=== PATIENT | female | born 1940 | race Hispanic/Latino ===

== ENCOUNTER 2017-08-27 17:23 | Emergency (ER) | payer MEDICARE, BC ==
[2017-08-27 17:23] VITALS: BMI 15.3
[2017-08-27 17:44] VITALS: O2SAT 99
--- NOTE | 2017-08-27 18:39 | ED PDOC ---
Arrival/HPI - General Chief Complaint: Back Pain Time Seen by Provider: 08/27/17 18:39 Historian: Patient - History of Present Illness Narrative History of Present Illness (Text): 08/27/17 18:41 A 77 year old female, whose past medical history includes hypertension, COPD, fractures, GERD, constipation, depression, tonsillectomy, and appendectomy, presents to the emergency department complaining of lower back pain for past few weeks. Patient reports she was exercising few weeks ago and felt sudden pain in the lumbar region bilaterally. She mentions also experiencing fatigue and chills, not associated with pain. Patient denies any other complaints at this time. PMD: Dr. Borden Past Medical History - Provider Review Nursing Documentation Reviewed: Yes - Infectious Disease Hx of Infectious Diseases: None - Tetanus Immunization Tetanus Immunization: Unknown - Cardiac Hx Cardiac Disorders: Yes Hx Hypertension: Yes - Pulmonary Hx Respiratory Disorders: Yes Hx Chronic Obstructive Pulmonary Disease (COPD): Yes - Neurological Hx Neurological Disorder: Yes - HEENT Hx HEENT Disorder: Yes - Renal Hx Renal Disorder: No - Endocrine/Metabolic Hx Endocrine Disorders: No - Hematological/Oncological Hx Blood Transfusions: No - Integumentary Other/Comment: underneath left eye skin CA, with sx - Musculoskeletal/Rheumatological Hx Fractures: Yes (Back) - Gastrointestinal Hx Gastrointestinal Disorders: Yes Hx Constipation: Yes Hx Gastroesophageal Reflux: Yes - Genitourinary/Gynecological Hx Genitourinary Disorders: No - Psychiatric Hx Psychophysiologic Disorder: Yes Hx Depression: Yes Hx Emotional Abuse: No Hx Physical Abuse: No Hx Substance Use: No - Surgical History Hx Appendectomy: Yes Hx Tonsillectomy: Yes - Anesthesia Hx Anesthesia: Yes - Suicidal Assessment Feels Threatened In Home Enviroment: No Family/Social History - Physician Review Nursing Documentation Reviewed: Yes Family/Social History: No Known Family HX Smoking Status: Never Smoked Hx Alcohol Use: No Hx Substance Use: No Hx Substance Use Treatment: No Allergies/Home Meds Allergies/Adverse Reactions: Allergies cefuroxime axetil [From Ceftin] Allergy (Verified 08/27/17 17:44) DIARRHEA gluten Allergy (Verified 08/27/17 17:44) ANAPHYLAXIS Review of Systems - Physician Review All systems were reviewed & negative as marked: Yes - Review of Systems Constitutional: Fatigue, Other (chills, "shaky sensation" non-associated with pain) Musculoskeletal: Back Pain (lower back pain bilaterally) Physical Exam Vital Signs Reviewed: Yes Vital Signs Temp Pulse Resp BP Pulse Ox 08/27/17 19:35 98.1 F 70 17 142/87 99 08/27/17 17:42 97.4 F L 72 18 145/91 H 99 Temperature: Afebrile Blood Pressure: Normal Pulse: Regular Respiratory Rate: Normal Appearance: Positive for: Well-Appearing, Non-Toxic, Comfortable Pain Distress: None Mental Status: Positive for: Alert and Oriented X 3 - Systems Exam Head: Present: Atraumatic, Normocephalic Neck: Present: Normal Range of Motion Respiratory/Chest: Present: Clear to Auscultation, Good Air Exchange. No: Respiratory Distress, Accessory Muscle Use Cardiovascular: Present: Regular Rate and Rhythm, Normal S1, S2. No: Murmurs Abdomen: No: Tenderness, Distention, Peritoneal Signs Upper Extremity: Present: Normal Inspection. No: Cyanosis, Edema Lower Extremity: Present: Normal Inspection, Other (negative straight leg test bilaterally). No: Edema Neurological: Present: GCS=15, CN II-XII Intact, Speech Normal Skin: Present: Warm, Dry, Normal Color. No: Rashes Psychiatric: Present: Alert, Oriented x 3, Normal Insight, Normal Concentration Medical Decision Making ED Course and Treatment: 08/27/17 18:49 Impression: 77 year old female with lower back pain bilaterally. Plan: -- Valium -- Toradol -- Urinalysis -- Labs -- Reassess and disposition Progress Notes: - Lab Interpretations Lab Results: 08/27/17 19:05 08/27/17 19:05 Lab Results 08/27/17 19:05: Sodium 133, Potassium 4.0, Chloride 96 L, Carbon Dioxide 26, Anion Gap 14, BUN 18, Creatinine 0.6 L, Est GFR ( Amer) > 60, Est GFR ( Non-Af Amer) > 60, Random Glucose 96, Calcium 9.2, Total Bilirubin 0.4, AST 33, ALT 32, Alkaline Phosphatase 106, Total Protein 7.1, Albumin 4.2, Globulin 2.9, Albumin/Globulin Ratio 1.5 08/27/17 19:05: Urine Color Yellow, Urine Appearance Clear, Urine pH 7.0, Ur Specific [place] 1.010, Urine Protein Negative, Urine Glucose (UA) Negative, Urine Ketones Negative, Urine Blood Trace-intact H, Urine Nitrate Negative, Urine Bilirubin Negative, Urine Urobilinogen 0.2, Ur Leukocyte Esterase Small H , Urine RBC 2 - 5, Urine WBC 5 - 10, Ur Epithelial Cells 3 - 4, Urine Bacteria Mod 08/27/17 19:05: WBC 4.6 D, RBC 4.65, Hgb 14.0, Hct 40.7, MCV 87.5, MCH 30.1, MCHC 34.4, RDW 14.6 H, Plt Count 215, MPV 10.5, Gran % 51.7, Lymph % (Auto) 35.7 H, [place] % (Auto) 10.2 H, Eos % (Auto) 1.7, Baso % (Auto) 0.7, Gran # 2.38, Lymph # (Auto) 1.6, [place] # (Auto) 0.5, Eos # (Auto) 0.1, Baso # (Auto) 0.03 - RAD Interpretation Radiology Orders: 08/27/17 19:38 LS SPINE WITH OBL > 18 YRS OLD [RAD] Stat - Medication Orders Current Medication Orders: Ciprofloxacin (Cipro 400mg/200ml Dsw) 400 mg in 200 mls @ 133.3 mls/hr IVPB Q12 LIO PRN Reason: Protocol Stop: 08/27/17 23:31 Discontinued Medications Diazepam (Valium) 5 mg PO ONCE ONE PRN Reason: Protocol Stop: 08/27/17 18:42 Last Admin: 08/27/17 19:34 Dose: Ketorolac Tromethamine (Toradol) 15 mg IVP STAT STA Stop: 08/27/17 18:42 Last Admin: 08/27/17 19:34 Dose: - Scribe Statement The provider has reviewed the documentation as recorded by the Rigo Michael Provider Scribe Attestation: All medical record entries made by the Rumaibearnestine were at my direction and personally dictated by me. I have reviewed the chart and agree that the record accurately reflects my personal performance of the history, physical exam, medical decision making, and the department course for this patient. I have also personally directed, reviewed, and agree with the discharge instructions and disposition. Disposition/Present on Arrival - Present on Arrival Any Indicators Present on Arrival: No History of DVT/PE: No History of Uncontrolled Diabetes: No Urinary Catheter: No History of Decub. Ulcer: No History Surgical Site Infection Following: None - Disposition Have Diagnosis and Disposition been Completed?: Yes Diagnosis: UTI (urinary tract infection), Lumbar sprain Disposition: HOME/ ROUTINE Disposition Time: 20:45 Patient Plan: Discharge Condition: GOOD Discharge Instructions (ExitCare): Urinary Tract Infections in Adults, Lumbar Muscle Strain (DC) Prescriptions: Ciprofloxacin HCl [Cipro] 250 mg PO Q12 3 Days #6 tablet Cyclobenzaprine [Cyclobenzaprine HCl] 10 mg PO QPM 10 Days #10 tab Ibuprofen [Motrin] 600 mg PO Q6 5 Days #20 tab Referrals: Rachna Borden DO [Primary Care Provider] - Follow up with primary Forms: [employer] ([place])
[2017-08-27 19:32] LABS: ALB/GLOB RATIO 1.5 (1.1-1.8); ALBUMIN 4.2 g/dL (3.0-4.8); ALT/SGPT 32 U/L (7-56); AST/SGOT 33 U/L (14-36); BLOOD UREA NITROGEN 18 mg/dL (7-21); CALCIUM 9.2 mg/dL (8.4-10.5); GFR AFRICAN-AMERICAN > 60; GFR NON-AFRICAN AMERICAN > 60
[2017-08-27 19:35] VITALS: BP 142/87; PULSE 70; RESP 17; TEMP 98.1
[2017-08-27 19:35] LABS: BASO # 0.03 K/mm3 (0.0-2.0); BASO % 0.7 % (0.0-3.0); EOS # 0.1 (0.0-0.7); EOS % 1.7 % (1.5-5.0); GRAN # 2.38 (1.4-6.5); GRAN % 51.7 % (50.0-68.0); LYMPH # 1.6 (1.2-3.4); LYMPH % 35.7 % (22.0-35.0); MEAN CELL VOLUME 87.5 fl (80.0-105.0); MEAN CORPUSCULAR HEMOGLOBIN 30.1 pg (25.0-35.0); MEAN CORPUSCULAR HGB CONC 34.4 g/dl (31.0-37.0); MEAN PLATELET VOLUME 10.5 fl (7.0-11.0); MONO # 0.5 (0.1-0.6); MONO % 10.2 % (1.0-6.0); RBC 4.65 10^6/uL (3.5-6.1); RED CELL DISTRIBUTION WIDTH 14.6 % (11.5-14.5); URINE BILIRUBIN NEGATIVE (NEGATIVE); URINE BLOOD TRACE-INTACT (NEGATIVE); URINE GLUCOSE (UA) NEGATIVE (NEGATIVE); URINE LEUKOCYTE ESTERASE SMALL Leu/uL (NEGATIVE); URINE PROTEIN NEGATIVE mg/dL (<30 mg/dL); URINE UROBILINOGEN 0.2 E.U./dL (<1 E.U./dL); WHITE BLOOD COUNT 4.6 10^3/ul (4.5-11.0)
[2017-08-27 19:36] LABS: URINE APPEARANCE CLEAR (CLEAR); URINE COLOR YELLOW (YELLOW)
[2017-08-27] MEDS ORDERED: Dextrose 50% SYRINGE Inj (50 ml) IVP STA (19:41)
[2017-08-27 19:43] LABS: URINE BACTERIA MOD (NEG)
[2017-08-27] MEDS ORDERED: Ciprofloxacin 400mg/200ml D5W 400 MG/200 ML BAG IVPB SCH (22:00)
--- NOTE | 2017-08-28 13:41 | RAD ---
Date of service: 08/27/2017 PROCEDURE: Radiographs of the Lumbar Spine. HISTORY: Back pain COMPARISON: No prior. FINDINGS: BONES: There is moderate levoscoliosis in the lumbar spine. There is diffuse bone demineralization. There are age indeterminate multilevel osteoporotic compression deformities in the lumbar spine, worse at L1 and L2 with approximately 50 percent loss of vertebral height. DISC SPACES: Multilevel degenerative disc disease, worse at L5-S1 OTHER FINDINGS: None. IMPRESSION: Age indeterminate multilevel osteoporotic compression deformities in the lumbar spine, worse at L1 and L2. Multilevel degenerative disc disease, worse at L5-S1. Moderate levoscoliosis in the lumbar spine. A preliminary report was provided by [employer] [facility].
== END 2017-08-27 21:12 | disposition home or self-care (01) ==
LOC: ED 17:23
DX: N39.0 Urinary tract infection, site not specified (principal); S33.5XXA Sprain of ligaments of lumbar spine, initial encounter; X58.XXXA Exposure to other specified factors, initial encounter; I10 Essential (primary) hypertension; J44.9 Chronic obstructive pulmonary disease, unspecified

== ENCOUNTER 2017-10-03 17:30 | Inpatient (IN) | payer MEDICARE, BC ==
[2017-10-03 17:40] VITALS: BMI 16.6
--- NOTE | 2017-10-03 17:43 | ED PDOC ---
Arrival/HPI - General Time Seen by Provider: 10/03/17 17:32 Historian: Patient, Family, EMS - History of Present Illness Narrative History of Present Illness (Text): 10/03/17 17:41 77 year old female, with past medical history of depression, osteoarthritis, hypertension, GERD, and COPD, presents to the Emergency department via EMS accompanied by son for evaluation of AMS prior to arrival. Son states patient was not making any sense when he called her house at 2pm today and reached out to the local fire department for evaluation. EMS was paged. Upon EMS arrival, patient appeared very confused and anxious prompting them to present to the Emergency department. As per son, patient may have been non-compliant with diet and is very dehydrated leading to the presented symptoms. Patient is currently able to recognize herself and her son and the place, however, is unable to recall what she ate earlier. Patient denies any fevers, chills, headache, dizziness, chest pain, shortness of breath, dyspnea on exertion, cough, abdominal pain, nausea, vomiting, diarrhea, back pain, neck pain, or any other complaints. Time/Duration: Prior to Arrival Symptom Onset: Gradual Symptom Course: Unchanged Activities at Onset: Light Context: Home Past Medical History - Provider Review Nursing Documentation Reviewed: Yes - Infectious Disease Hx of Infectious Diseases: None - Tetanus Immunization Tetanus Immunization: Unknown - Cardiac Hx Cardiac Disorders: Yes Hx Hypertension: Yes - Pulmonary Hx Respiratory Disorders: Yes Hx Chronic Obstructive Pulmonary Disease (COPD): Yes - Neurological Hx Neurological Disorder: Yes - HEENT Hx HEENT Disorder: Yes - Renal Hx Renal Disorder: No - Endocrine/Metabolic Hx Endocrine Disorders: No - Hematological/Oncological Hx Blood Transfusions: No - Integumentary Other/Comment: underneath left eye skin CA, with sx - Musculoskeletal/Rheumatological Hx Fractures: Yes (Back) - Gastrointestinal Hx Gastrointestinal Disorders: Yes Hx Constipation: Yes Hx Gastroesophageal Reflux: Yes - Genitourinary/Gynecological Hx Genitourinary Disorders: No - Psychiatric Hx Psychophysiologic Disorder: Yes Hx Depression: Yes Hx Emotional Abuse: No Hx Physical Abuse: No Hx Substance Use: No - Surgical History Hx Appendectomy: Yes Hx Tonsillectomy: Yes - Anesthesia Hx Anesthesia: Yes - Suicidal Assessment Feels Threatened In Home Enviroment: No Family/Social History - Physician Review Nursing Documentation Reviewed: Yes Smoking Status: Never Smoked Hx Alcohol Use: No Hx Substance Use: No Hx Substance Use Treatment: No Allergies/Home Meds Allergies/Adverse Reactions: Allergies cefuroxime axetil [From Ceftin] Allergy (Verified 10/03/17 17:45) DIARRHEA gluten Allergy (Verified 10/03/17 17:45) ANAPHYLAXIS Review of Systems - Physician Review All systems were reviewed & negative as marked: Yes - Review of Systems Constitutional: absent: Fevers Respiratory: absent: SOB, Cough Cardiovascular: absent: Chest Pain, COHEN Gastrointestinal: absent: Abdominal Pain, Diarrhea, Nausea, Vomiting Musculoskeletal: absent: Back Pain, Neck Pain Neurological: absent: Headache, Dizziness Physical Exam Vital Signs Reviewed: Yes Vital Signs Pulse Resp BP Pulse Ox 10/03/17 20:08 71 18 139/82 98 10/03/17 18:22 90 18 164/91 H 96 Temperature: Afebrile Blood Pressure: Normal Pulse: Regular Respiratory Rate: Normal Appearance: Positive for: Comfortable, Other (Anxious associated with tremors) Pain Distress: None Mental Status: Positive for: Confused (Alert to person and place however is unable to recall what she ate earlier) - Systems Exam Head: Present: Atraumatic, Normocephalic Pupils: Present: PERRL Extroacular Muscles: Present: EOMI Conjunctiva: Present: Normal Mouth: Present: Moist Mucous Membranes Neck: Present: Normal Range of Motion Respiratory/Chest: Present: Clear to Auscultation, Good Air Exchange. No: Respiratory Distress, Accessory Muscle Use Cardiovascular: Present: Regular Rate and Rhythm, Normal S1, S2. No: Murmurs Abdomen: No: Tenderness, Distention, Peritoneal Signs Back: Present: Normal Inspection Upper Extremity: Present: Normal Inspection. No: Cyanosis, Edema Lower Extremity: Present: Normal Inspection. No: Edema Neurological: Present: GCS=15, CN II-XII Intact, Speech Normal Skin: Present: Warm, Dry, Normal Color. No: Rashes Psychiatric: Present: Alert, Normal Concentration, Anxious Medical Decision Making ED Course and Treatment: 10/03/17 17:52 Impression: 77 year old female presents to the Emergency department for evaluation of AMS. Differential Diagnosis included but are not limited to: AMS Plan: -- VBG -- CT of head -- Labs -- EKG -- Chest X-ray -- Ativan -- IV Fluids -- Blood culture -- Urine culture -- Urinalysis -- Reassess and disposition Prior Visits: Notes and results from previous visits were reviewed. Progress Notes: 10/03/17 18:04 EKG: Ordered, reviewed, and independently interpreted the EKG. Rate : 84 BPM Rhythm : NSR Interpretation : No ST-segment elevations or depressions, no T-wave inversions, normal intervals. 10/03/17 20:22 Patient's diagnostic imaging and lab results were thoroughly reviewed with no significant findings for the AMS. Discussed case with Dr. Flores, who is aware and agrees with Emergency department plan, agrees admission under her service. Requests possible psychiatry and neurology on consult. Possible MRI to be performed tomorrow morning. - Lab Interpretations Lab Results: 10/03/17 18:00 10/03/17 18:00 Lab Results 10/03/17 19:54: Urine Color Light yellow, Urine Appearance Clear, Urine pH 7.0, Ur Specific [place] 1.010, Urine Protein Negative, Urine Glucose (UA) Negative, Urine Ketones Negative, Urine Blood Negative, Urine Nitrate Negative, Urine Bilirubin Negative, Urine Urobilinogen 0.2, Ur Leukocyte Esterase Negative 10/03/17 18:00: Alcohol, Quantitative < 10 10/03/17 18:00: Ammonia 12 10/03/17 18:00: Sodium 131 L, Chloride 95 L, Potassium 4.6, Carbon Dioxide 24, Anion Gap 16, BUN 12, Creatinine 0.7, Est GFR ( Amer) > 60, Est GFR (Non- Af Amer) > 60, Random Glucose 104, Calcium 9.9, Phosphorus 2.9, Magnesium 2.6 H , Total Bilirubin 0.4, AST 33, ALT 33, Alkaline Phosphatase 134 H D, Lactate Dehydrogenase 412, Total Creatine Kinase 70, Troponin I < 0.01, Total Protein 7.2, Albumin 4.4, Globulin 2.8, Albumin/Globulin Ratio 1.6 10/03/17 18:00: pO2 28 L, VBG pH 7.45 H, VBG pCO2 38.0 L, VBG HCO3 26.4, VBG Total CO2 27.6, VBG O2 Sat (Calc) 63.3, VBG Base Excess 2.4 H, VBG Potassium 4.6 , Sodium 129.0 L, Chloride 96.0 L, Glucose 109 H, Lactate 1.6, FiO2 21.0, Venous Blood Potassium 4.6 10/03/17 18:00: PT 11.7, INR 1.03 10/03/17 18:00: WBC 4.7, RBC 4.50, Hgb 13.7, Hct 39.3, MCV 87.3, MCH 30.4, MCHC 34.9, RDW 14.3, Plt Count 241, MPV 10.0, Gran % 56.3, Lymph % (Auto) 32.0, [place] % (Auto) 9.6 H, Eos % (Auto) 1.7, Baso % (Auto) 0.4, Gran # 2.64, Lymph # (Auto ) 1.5, [place] # (Auto) 0.5, Eos # (Auto) 0.1, Baso # (Auto) 0.02 - RAD Interpretation Radiology Orders: 10/03/17 17:44 HEAD W/O CONTRAST [CT] Stat CHEST ONE VIEW [RAD] Stat - EKG Interpretation Interpreted by ED Physician: Yes Type: 12 lead EKG - Medication Orders Current Medication Orders: Sodium Chloride (Sodium Chloride 0.9%) 1,000 mls @ 100 mls/hr IV .Q10H LIO Last Admin: 10/03/17 18:20 Dose: 100 mls/hr eMAR Start Stop Document 10/03/17 18:20 LM (Rec: 10/03/17 18:20 [id number] Intravenous Solution Start Date 10/03/17 Start Time 18:20 Discontinued Medications Lorazepam (Ativan) 2 mg IVP ONCE ONE PRN Reason: Protocol Stop: 10/03/17 17:45 Last Admin: 10/03/17 18:20 Dose: 2 mg IVP Administration Document 10/03/17 18:20 LM (Rec: 10/03/17 18:20 [id number] Charges for Administration # of IVP Administrations 1 - Scribe Statement The provider has reviewed the documentation as recorded by the Scribearnestine Blanchard. All medical record entries made by the Scribe were at my direction and personally dictated by me. I have reviewed the chart and agree that the record accurately reflects my personal performance of the history, physical exam, medical decision making, and the department course for this patient. I have also personally directed, reviewed, and agree with the discharge instructions and disposition. Disposition/Present on Arrival - Present on Arrival History of DVT/PE: No History of Uncontrolled Diabetes: No Urinary Catheter: No History Surgical Site Infection Following: None - Disposition Referrals: Rachna Borden DO [Primary Care Provider] - Follow up with primary
[2017-10-03] MEDS ORDERED: Sodium Chloride 0.9% 1,000 ML IV SCH (17:45)
[2017-10-03 18:31] LABS: BASO # 0.02 K/mm3 (0.0-2.0); BASO % 0.4 % (0.0-3.0); EOS # 0.1 (0.0-0.7); EOS % 1.7 % (1.5-5.0); GRAN # 2.64 (1.4-6.5); GRAN % 56.3 % (50.0-68.0); HEMOGLOBIN 13.7 g/dL (12.0-16.0); LYMPH # 1.5 (1.2-3.4); MEAN CELL VOLUME 87.3 fl (80.0-105.0); MEAN CORPUSCULAR HEMOGLOBIN 30.4 pg (25.0-35.0); MEAN CORPUSCULAR HGB CONC 34.9 g/dl (31.0-37.0); MONO # 0.5 (0.1-0.6); MONO % 9.6 % (1.0-6.0); RBC 4.5 10^6/uL (3.5-6.1); RED CELL DISTRIBUTION WIDTH 14.3 % (11.5-14.5); WHITE BLOOD COUNT 4.7 10^3/ul (4.5-11.0)
[2017-10-03 18:36] LABS: INR 1.03; PROTHROMBIN TIME 11.7 SECONDS (9.4-12.5)
[2017-10-03 18:46] LABS: VENOUS BLOOD GAS BASE EXCESS 2.4 mmol/L (0.0-2.0); VENOUS BLOOD GAS PO2 28 mm/Hg (30-55); VENOUS BLOOD PH 7.45 (7.32-7.43)
[2017-10-03 18:51] LABS: ALB/GLOB RATIO 1.6 (1.1-1.8); ALBUMIN 4.4 g/dL (3.0-4.8); ALT/SGPT 33 U/L (7-56); AST/SGOT 33 U/L (14-36); BLOOD UREA NITROGEN 12 mg/dL (7-21); CALCIUM 9.9 mg/dL (8.4-10.5); GFR NON-AFRICAN AMERICAN > 60
[2017-10-03 19:02] LABS: TROPONIN I < 0.01 ng/mL
[2017-10-03 20:12] LABS: URINE BILIRUBIN NEGATIVE (NEGATIVE); URINE BLOOD NEGATIVE (NEGATIVE); URINE GLUCOSE (UA) NEGATIVE (NEGATIVE); URINE LEUKOCYTE ESTERASE NEGATIVE Leu/uL (NEGATIVE); URINE PROTEIN NEGATIVE mg/dL (<30 mg/dL); URINE UROBILINOGEN 0.2 E.U./dL (<1 E.U./dL)
[2017-10-03 20:13] LABS: URINE APPEARANCE CLEAR (CLEAR); URINE COLOR LIGHT YELLOW (YELLOW)
[2017-10-03] MEDS ORDERED: Albuterol-Ipratrop 3 mg / 0.5 (3 ml) UD IH PRN (21:40)
[2017-10-03 22:31] LABS: HDL CHOLESTEROL 56 mg/dL (29-60)
[2017-10-03 22:41] LABS: LDL CHOLESTEROL 98 mg/dL (0-129)
[2017-10-04] MEDS: Pantoprazole 40 mg EC Tab PO SCH (05:35)
[2017-10-04] MEDS: Albuterol-Ipratrop 3 mg / 0.5 (3 ml) UD IH SCH ×3 (07:26→20:05)
--- NOTE | 2017-10-04 07:26 | CT ---
Date of service: 10/03/2017 PROCEDURE: CT HEAD WITHOUT CONTRAST. HISTORY: CONFUSION COMPARISON: None available. TECHNIQUE: Axial computed tomography images were obtained through the head/brain without intravenous contrast. Radiation dose: Total exam DLP = mGy-cm. This CT exam was performed using one or more of the following dose reduction techniques: Automated exposure control, adjustment of the mA and/or kV according to patient size, and/or use of iterative reconstruction technique. FINDINGS: HEMORRHAGE: No intracranial hemorrhage. BRAIN: No mass effect or edema. Chronic microvascular ischemic changes. VENTRICLES: Unremarkable. No hydrocephalus. CALVARIUM: Unremarkable. PARANASAL SINUSES: Unremarkable as visualized. No significant inflammatory changes. MASTOID AIR CELLS: Unremarkable as visualized. No inflammatory changes. OTHER FINDINGS: None. IMPRESSION: No bleed..
[2017-10-04 08:05] LABS: ALB/GLOB RATIO 1.4 (1.1-1.8); ALBUMIN 3.5 g/dL (3.0-4.8); ALT/SGPT 28 U/L (7-56); AST/SGOT 27 U/L (14-36); BLOOD UREA NITROGEN 8 mg/dL (7-21); CALCIUM 8.9 mg/dL (8.4-10.5); GFR NON-AFRICAN AMERICAN > 60
[2017-10-04 08:20] LABS: FREE T4 1.11 ng/dL (0.78-2.19)
--- NOTE | 2017-10-04 09:16 | HP ---
Copied To: Froy Flores MD Attending MD: Froy Flores MD HISTORY OF PRESENT ILLNESS: The patient is 77-year-old, who was brought to Emergency Room for change in mental status. According to son, when he called mom around 2:00, she seemed confused and disoriented, did not make sense while she was talking department because he lives out of town, who called EMS and she was found to be confused, anxious. So, she was brought to emergency room for further evaluation. The patient lives by herself. She was admitted 02/2016 because of generalized weakness and was found to be dehydrated. PAST MEDICAL HISTORY: Otherwise is significant for, 1. Hypertension. 2. Generalized osteoarthritis. 3. Gastroesophageal reflux disease. 4. COPD. 5. History of left shoulder basal cell carcinoma; for that, she got radiation. ALLERGIES: SHE IS ALLERGIC TO CEFUROXIME AND GLUTEN. MEDICATIONS AT HOME: She is on ibuprofen and Cipro. SOCIAL HISTORY: Denies smoking. She used to smoke heavy, but quit 15 years ago. Used to smoke almost a pack a day. Socially drinks. PHYSICAL EXAMINATION: GENERAL: She seems to be more alert now, able to recognize herself and her son. VITAL SIGNS: She has temperature of 99.5, pulse 90, respirations 18, blood pressure 164/91. LUNGS: Bilateral fair airflow. No rhonchi or crackle. HEART: S1 and S2 audible. ABDOMEN: Soft, nontender. No rebound. No guarding. NEUROLOGICAL: The patient is awake and alert, but confused and disoriented. EXTREMITIES: Bilateral legs, no edema. LABORATORY DATA: WBC is 4.7, hemoglobin 13.7, hematocrit 39.3, platelet 241. PT 11.7, INR 1.03. Sodium 131, potassium 4.6, chloride 95, CO2 of 24, BUN 12, creatinine 0.7, blood sugar of 104, magnesium 2.6, alk phos 134, ammonia level is 12. LFTs are within normal limit. Urinalysis is unremarkable. CT scan of the head done, unremarkable. ASSESSMENT: 1. Status post altered mental status. 2. History of hypertension, but currently normotensive. 3. History of left shoulder basal cell carcinoma. 4. Chronic obstructive pulmonary disease. 5. Chronic low back pain. PLAN: The patient will be admitted. We will give her IV fluids. Follow up cultures. I will order for carotid Doppler. Follow up her electrolytes and we will reevaluate in the a.m. Froy Flores MD
--- NOTE | 2017-10-04 10:13 | RAD ---
Date of service: 10/03/2017 PROCEDURE: CHEST RADIOGRAPH, 1 VIEW HISTORY: ALTERED MENTAL STATUS COMPARISON: 05/11/2016 FINDINGS: LUNGS: Clear. PLEURA: No pneumothorax or pleural fluid seen. CARDIOVASCULAR: Normal. OSSEOUS STRUCTURES: No significant abnormalities. VISUALIZED UPPER ABDOMEN: Normal. OTHER FINDINGS: None. IMPRESSION: No active disease.
--- NOTE | 2017-10-04 11:23 | CARD ---
APPROVED REPORT Date of service: 10/03/2017 EKG Measurement Heart [id number] <Conclusion> Normal sinus rhythm Nonspecific ST abnormality Abnormal ECG
--- NOTE | 2017-10-04 14:27 | PN ---
Copied To: Froy Flores MD Attending MD: Froy Flores MD DATE: 10/04/2017 SUBJECTIVE: The patient is 77 years old, seen and examined, lying in bed. Daughter and son by the bedside. They stated this is acute change in mental status. She is very confused and has a better remote memory than recent that all started yesterday afternoon. No acute events. No headache, no chest pain, no shortness of breath. No nausea, vomiting. No diarrhea. PHYSICAL EXAMINATION: VITAL SIGNS: She is afebrile, pulse 52, respirations 18, blood pressure 140/72. LUNGS: Bilateral fair airflow. No rhonchi or crackle. HEART: S1, S2 audible. ABDOMEN: Soft, nontender. No rebound, no guarding. NEUROLOGICAL: She is awake and alert, forgetful. No focal deficit. LABORATORY EXAM: Sodium 138, potassium 3.8, chloride 104, CO2 27, BUN 8, creatinine 0.7, blood sugar of 75. LFTs are within normal limits. Total cholesterol is 181, LDL is 98. Thyroid profile is within normal limits. Urinalysis is unremarkable. Urine tox is negative. CT scan of the head is negative. I am awaiting MRI of the brain. ASSESSMENT: 1. Altered mental status, etiology is unclear, probably worsening dementia along with transient ischemic attack. 2. Hypertension. 3. History of chronic obstructive pulmonary disease. PLAN: We will follow up MRI and carotid Doppler. If unremarkable and [facility], we will make disposition plan. Physical therapy has been requested. Froy Flores MD
--- NOTE | 2017-10-04 17:15 | US ---
PROCEDURE: Bilateral carotid artery duplex ultrasound HISTORY: Carotid stenosis syncope PHYSICIAN(S): Elan Reza MD. TECHNIQUE: Duplex sonography and color-flow Doppler were used to evaluate the carotid bifurcations and limited segments of the vertebral arteries bilaterally. FINDINGS: The exam is limited by tortuous vessels. There is mild to moderate focal heterogeneous echogenic plaque noted at the carotid bifurcations bilaterally. The peak systolic velocity in the proximal right internal carotid artery is 89 cm/sec. This corresponds to a 20 to 39% proximal right ICA stenosis. Normal systolic velocities are noted in the proximal right external carotid artery. There is antegrade flow in the right vertebral artery. The peak systolic velocity in the proximal left internal carotid artery is 76 cm/sec. This corresponds to a 20 to 39% proximal left ICA stenosis. Normal systolic velocities are noted in the proximal left external carotid artery. There is antegrade flow in the left vertebral artery. IMPRESSION: 1. Bilateral 20-39% proximal ICA stenoses. 2. Antegrade flow in both vertebral arteries.
[2017-10-05] MEDS: Albuterol-Ipratrop 3 mg / 0.5 (3 ml) UD IH SCH ×4 (01:14→20:25)
[2017-10-05] MEDS: Pantoprazole 40 mg EC Tab PO SCH (05:50)
--- NOTE | 2017-10-05 09:11 | MRI ---
Date of service: 10/04/2017 PROCEDURE: MRI BRAIN WITHOUT CONTRAST HISTORY: altered mental sttus COMPARISON: Noncontrast head CT 10/03/2017. TECHNIQUE: Multiplanar, multisequence MR images of the brain were obtained without intravenous contrast enhancement. FINDINGS: HEMORRHAGE: None DWI: Punctate acute or subacute infarcts are identified at right occipital lobe. No acute lobar brain infarction identified. There is also small acute subacute left thalamic infarct. BRAIN PARENCHYMA: Good corticomedullary differentiation is seen. Limited, proportional, diffuse expansion of the ventriculosulcal and cisternal spaces is appreciated with white matter lucency compatible with diffuse cerebral atrophy and chronic microangiopathy. No suspicious extra-axial fluid collection is identified. Midline brain anatomy is remarkable for a 9 mm pineal cyst. There is no mass effect throughout. Cerebellar ectopia is appreciated but not to a level that would applied to Chiari malformation. VENTRICLES: Unremarkable. No hydrocephalus. CRANIUM: Unremarkable. ORBITS: Grossly unremarkable. PARANASAL SINUSES/MASTOIDS: Clear VASCULAR SYSTEM: Skull base flow voids intact. OTHER FINDINGS: None. IMPRESSION: 1. Small acute or subacute infarction identified in multiple punctate right occipital foci and also in a region of the left thalamus. No significant mass effect. 2. Limited age-related neuro degenerative findings as seen in prior head CT 10/03/2017. 3. 9 mm pineal cyst. Consider follow-up brain MRI with contrast for added characterization. 4. Cerebellar ectopia identified. Concordant preliminary report from [facility], 10/04/2017.
--- NOTE | 2017-10-05 14:22 | CP.PCM.PN ---
Subjective - Date & Time of Evaluation Date of Evaluation: 10/05/17 Time of Evaluation: 01:50 - Subjective Subjective: Subjective: CC: Blurry Vision HPI: Paged by RN for evaluation of blurry vision. Patient seen and examined at bedside. Family present. Patient gave permission to talk about medical information in front of family. Patient states she was experiencing blurry vision out of both eyes after eating lunch. Denies specific provoking event. The blurry vision has since improved. Admits to using prescription glasses at home which were not available at the hospital. Denies headache, dizziness, chest pain, shortness of breath, slurred speech, and confusion. Physical Examination: Head: AT-NC Eyes: nonicteric, EOMI, Alethea ENT: Moist mucus membranes Heart: + S1, +S2 Lungs: CTA bilaterally Neuro: AAO x 2 to name and person, CNII- XII intact bilaterally, responds to verbal stimuli, answers questions appropriately, moves extremities past midline , muscle strength 5/5 throughout, sensation intact to touch throughout, no slurring of speech, no facial droop Extremities: no clubbing, no cyanosis Psych: normal mood, normal affect Skin: dry, warm Assessment and Plan: Patient is 77 year old female with a past medical history of hypertension, COPD , and basal cell carcinoma who was admitted for evaluation and treatment of altered mental status. Found to have small acute or subacute infarction in the right occipital foci and also in a region of the left thalamus on recent brain MRI. Blurry Vision - recent brain MRI reviewed- Small acute or subacute infarction identified in multiple punctuate right occipital foci and also in a region of the left thalamus. No significant mass effect. Limited age-related neuro degenerative findings as seen in prior head CT 10/03/2017. 9 mm pineal cyst - continue aspirin and statin - neurology team contacted by nursing staff who endorsed patient case- MRI findings were discussed with new onset blurry vision- neurologist informed nurse that he will evaluate patient this afternoon - primary physician contact- endorsed patient case- instructed to place patient on neurochecks q4 hours Objective - Vital Signs/Intake and Output Vital Signs (last 24 hours): Temp Pulse Resp BP Pulse Ox 97.5 F L 79 20 130/84 97 10/05/17 08:30 10/05/17 08:30 10/05/17 08:30 10/05/17 09:11 10/05/17 08:30 Intake and Output: 10/05/17 10/05/17 06:59 18:59 Intake Total 120 Balance 120 - Medications Medications: Current Medications Acetaminophen (Tylenol 325mg Tab) 650 mg PO Q6H PRN PRN Reason: Fever >100.4 F Albuterol/Ipratropium (Duoneb 3 Mg/0.5 Mg (3 Ml) Ud) 3 ml [facility]H [id number] [facility] Last Admin: 10/05/17 13:55 Dose: Not Given Albuterol/Ipratropium (Duoneb 3 Mg/0.5 Mg (3 Ml) Ud) 3 ml IH Q2H PRN PRN Reason: Shortness of Breath Amlodipine Besylate (Norvasc) 2.5 mg PO DAILY [facility] Last Admin: 10/05/17 09:11 Dose: 2.5 mg Aspirin (Ecotrin) 81 mg PO DAILY [facility] Last Admin: 10/05/17 09:11 Dose: 81 mg Atorvastatin Calcium (Lipitor) 10 mg PO DIN [facility] Lorazepam (Ativan) 1 mg IVP ONCE PRN; Protocol PRN Reason: Anxiety Last Admin: 10/04/17 18:25 Dose: 1 mg Pantoprazole Sodium (Protonix Ec Tab) 40 mg PO 0630 [facility] Last Admin: 10/05/17 05:50 Dose: 40 mg - Labs Labs: 10/04/17 07:00 PT 11.7 SECONDS (9.4-12.5) 10/03/17 18:00 INR 1.03 10/03/17 18:00
--- NOTE | 2017-10-05 15:35 | CON ---
Copied To: Blas Lay MD Attending MD: Blas Lay MD DATE: 10/05/2017 NEUROLOGY CONSULT CHIEF COMPLAINT: Altered mental status. HISTORY OF PRESENT ILLNESS: This is a 77-year-old woman with history of anxiety, depression, osteoarthritis, hypertension, GERD, COPD, who presented with altered mental status. She was not making any sense and was anxious and confused and was dehydrated and was worked up, had an MRI of the brain, which showed some small acute and subacute infarctions in the multiple punctate right occiput foci and also the region of the left thalamus with no significant mass effect with age-related changes and 9 mm pineal cyst. Her altered mental status was secondary to her acute infarcts in the right occipital and the left thalamic area. No residual deficits on exam, but is mildly anxious. She is deconditioned, has had frequent falls and has had injuries from falls in the past according to the son. PAST MEDICAL HISTORY: As above. ALLERGIES: TO CEFUROXIME AND GLUTEN. REVIEW OF SYSTEMS: Fourteen-point review of systems is negative except as per the HPI. FAMILY HISTORY: Noncontributory. MEDICATIONS: Reviewed by nurses' reconciliation sheet. LABORATORY DATA: Carotid Doppler showed 20-39% proximal ICA stenosis and antegrade flow in vertebral arteries. The sodium is 138, potassium 3.8, chloride 104, carbon dioxide 27, BUN of 8, creatinine 0.7, random glucose of 75. PHYSICAL EXAMINATION: VITAL SIGNS: Temperature 97.7, pulse rate of 79, blood pressure of 138/84, respiratory rate of 20, oxygen saturation 97% by room air. GENERAL: The patient is sitting up in bed, in no acute distress. HEENT: Atraumatic, normocephalic. PERRLA. Extraocular muscles intact. NECK: Supple. No JVD, no adenopathy noted. LUNGS: Clear to auscultation. No adventitious sounds. HEART: S1, S2. Normal rate and rhythm. No murmurs, rubs or gallops. ABDOMEN: Soft, nontender and nondistended. Bowel sounds are present. EXTREMITIES: No clubbing. No cyanosis. Peripheral pulses 2+ felt bilaterally. NEUROLOGIC: The patient is alert and oriented to person, place, month and year. Speech is fluent without any errors. Poor attention span, slow thought process. Recall after 5 minutes is 0/3. Mildly anxious. Cranial nerves II through XII intact. Motor exam: Slightly deconditioned. Moves all extremities equally. No pronator drift seen. Sensory exam: Light touch, pinprick, proprioception and vibration are intact. DTRs are 2+ throughout, 1 at both knees and ankles. Coordination: [id number] intact. No dysmetria noted except for some mild difficulties on the right [id number], which is indicated with a left thalamic infarct. Gait is deferred for now. IMPRESSION: This is a 77-year-old woman with past medical history of osteoarthritis, hypertension, dyslipidemia, anxiety, depression, gastroesophageal reflux disease and chronic obstructive pulmonary disease, who presented with altered mental status, which was likely secondary to underlying small left thalamic infarct and small right occipital infarct, which was scattered. Given her scattered infarcts on the both two cerebral hemispheres, it could be embolic in nature, therefore recommend, 1. A loop recorder. 2. Given her HAS-BLED score is high and risk of falls and has had history of falls in the past, we will hold off anticoagulation and just go with the aspirin 81 and Lipitor 40 for stroke prevention. We will recommend a Cardiology evaluation and possible loop recorder to evaluate for any arrhythmias and physical therapy, occupational therapy and subacute rehabilitation at this time. Thank you for this consult. Blas Lay MD
--- NOTE | 2017-10-06 00:40 | PN ---
Copied To: Froy Flores MD Attending MD: Froy Flores MD DATE: 10/05/2017 SUBJECTIVE: The patient is 77 years old, seen and examined, seemed to be awake, alert, oriented, able to communicate. Generalized weakness. Had some difficulty walking and has unstable gait. PHYSICAL EXAMINATION: VITAL SIGNS: She is afebrile, pulse 74, respirations 20, blood pressure 127/80. LUNGS: Bilateral fair airflow. No rhonchi or crackle. HEART: S1, S2 audible. ABDOMEN: Soft, nontender. No rebound. No guarding. NEUROLOGICAL: She is awake, alert, oriented, communicative. Moves all extremities. Had episode of slight blurriness but resolved. DIAGNOSTIC DATA: CT scan was unremarkable. However, MRI showed small acute versus subacute infarction in the multiple punctate right occipital foci and also in the region of left thalamus and no mass effect. ASSESSMENT: 1. Acute thalamic and occipital cerebrovascular accident. 2. Unstable gait. 3. Hypertension 4. History of gastritis. PLAN: I will request Dr. Padron to evaluate patient to rule out arrhythmia since stroke seems to be embolic. Patient goes into paroxysmal AFib although she is at high risk for any anticoagulation. I will order for echocardiogram and discuss with the family who is by the bedside and the criminal justice social worker to make arrangement for acute rehab after the workup is done. Encourage physical therapy if patient is declined from acute rehab she will be considered to send to. Froy Flores MD
[2017-10-06] MEDS: Albuterol-Ipratrop 3 mg / 0.5 (3 ml) UD IH SCH ×4 (02:10→20:19)
[2017-10-06] MEDS: Pantoprazole 40 mg EC Tab PO SCH (05:51)
[2017-10-06 09:04] VITALS: RESP 20
--- NOTE | 2017-10-06 20:06 | CON ---
Copied To: Renu Padron MD Attending MD: Renu Padron MD. DATE: 10/06/2017 REASON FOR CONSULTATION AND FOLLOWUP: Evaluation for loop recorder implantation because of admitted with altered mental status secondary to embolic stroke, rule out paroxysmal atrial fibrillation. BRIEF CLINICAL HISTORY: This is a 77-year-old female with past medical history significant for anxiety disorder, depression, osteoarthritis, hypertension, COPD, gastroesophageal reflux, presented with altered mental status. Patient was at home, found to be confused, dehydrated. Workup MRI of the brain showed small acute to subacute infarct in multiple area of the right occipital region. So cardiac consult was called to rule out any paroxysmal atrial fibrillation, implantation, and possible evaluation for loop recorder. PAST HISTORY: Significant for gastroesophageal reflux, hypertension, osteoarthritis, COPD, and history of left shoulder basal cell carcinoma and got radiation. ALLERGIES: CEFUROXIME AND GLUTEN. CURRENT MEDICATIONS: Patient at home before she came to the hospital was taking amlodipine 2.5 mg daily and Zantac 150 p.o. b.i.d. for gastroesophageal reflux. Recent workup as follows: Patient had admitting EKG shows normal sinus, nonspecific ST-T changes. Patient had bilateral carotid Duplex that showed 20%-39% stenosis. Patient had MRI of the brain. It shows multiple small acute to subacute multiple infarct in the right occipital lobe. REVIEW OF SYSTEMS: As per HPI. PHYSICAL EXAMINATION: VITAL SIGNS: Temperature afebrile. Heart rate 77, blood pressure 146/89. HEENT: PERRLA. Extraocular muscles intact. NECK: Supple. No carotid bruit or thyromegaly. CHEST: Clear to auscultation. HEART: S1 and S2, regular. ABDOMEN: Soft. EXTREMITIES: Clubbing and cyanosis negative. LABORATORY DATA: Blood work up as follows: WBC 4.7, hemoglobin 13.7, hematocrit 39.3, and platelet count 241. Chemistry shows sodium 130, potassium 3.8, chloride 104, CO2 of 27, anion gap 11. BUN 8, creatinine 0.7. TSH 1.55. Triglyceride 107, cholesterol 181, LDL 98, HDL 56. IMPRESSION: 1. Acute cerebrovascular accident. 2. Altered mental status secondary to cerebrovascular accident. 3. Hypertension. 4. Anxiety disorder. 5. Depression. 6. Osteoarthritis. 7. History of left shoulder basal cell carcinoma, status post radiation. 8. Rule out possible atrial fibrillation. PLAN: Patient was seen by neurologist and thought to be high risk for bleeding, has high HAS-BLED score, so not a good candidate for and has a high risk for fall also. Suggested not to anticoagulate evidence for paroxysmal atrial fibrillation, suggested for loop recorder. So at this point, recommendation is to get echo to rule out any structural heart disease and will schedule for loop recorder tomorrow. We will discuss with the family, discuss with patient. We ill follow with you. We will keep n.p.o. tomorrow except meds for loop recorder implantation at [address] Flores for providing opportunity in taking for care of patient, Abimbola Jacques. Renu Padron MD
--- NOTE | 2017-10-06 21:25 | PN ---
Copied To: Froy Flores MD Attending MD: Froy Flores MD DATE: 10/06/2017 SUBJECTIVE: The patient is 77 years old, seen and examined lying in bed, seems to be comfortable. No nausea or vomiting. No diarrhea. No blurry vision. No headache. PHYSICAL EXAMINATION: VITAL SIGNS: She is afebrile, pulse 87, respirations 20, blood pressure 141/89. LUNGS: Bilateral good airflow. No rhonchi or crackle. HEART: S1 and S2 audible. ABDOMEN: Soft. Nontender. No rebound. No guarding. NEUROLOGICAL: She is awake, alert, oriented, communicative. Moves all extremities. Has generalized weakness, unstable gait. EXTREMITIES: Bilateral legs, no edema. LABORATORY EXAM: Her MRI of the brain shows small acute or subacute infarction in the multiple punctate right occipital foci and also in the region of left thalamus. No significant mass effect. She has pineal cyst also. Echocardiogram is pending. ASSESSMENT: 1. Status post acute occipital and thalamic cerebrovascular accident. 2. Hypertension. 3. Generalized weakness and difficulty walking. PLAN: The patient will be getting loop recorder tomorrow. We will follow up echocardiogram. In the meantime, we will continue on aspirin and statins. We will follow up the patient in the a.m. Froy Flores MD
[2017-10-07] MEDS: Albuterol-Ipratrop 3 mg / 0.5 (3 ml) UD IH SCH ×4 (01:35→19:48)
[2017-10-07] MEDS: Pantoprazole 40 mg EC Tab PO SCH (05:58)
--- NOTE | 2017-10-07 07:32 | CP.PCM.PN ---
Subjective - Date & Time of Evaluation Date of Evaluation: 10/07/17 Time of Evaluation: 06:35 - Subjective Subjective: Awake,alert, no distress, daughter at bedside Reason for consultation and follow up: Cardiac evaluation for Loop recorder implantation,Admitted with altered mental status secondary to embolic stroke, rule out paroxysmal atrial fibrillation Seen and examined by me and Dr. Padron Objective - Vital Signs/Intake and Output Vital Signs (last 24 hours): Temp Pulse Resp BP Pulse Ox 97.6 F 76 20 141/89 96 10/06/17 17:56 10/07/17 06:00 10/06/17 17:56 10/06/17 17:56 10/06/17 17:56 Intake and Output: 10/07/17 10/07/17 06:59 18:59 Intake Total 1280 Balance 1280 - Medications Medications: Current Medications Acetaminophen (Tylenol 325mg Tab) 650 mg PO Q6H PRN PRN Reason: Fever >100.4 F Albuterol/Ipratropium (Duoneb 3 Mg/0.5 Mg (3 Ml) Ud) 3 ml IH [id number] ON LICENSE OF [facility] Last Admin: 10/07/17 01:35 Dose: Not Given Albuterol/Ipratropium (Duoneb 3 Mg/0.5 Mg (3 Ml) Ud) 3 ml IH Q2H PRN PRN Reason: Shortness of Breath Amlodipine Besylate (Norvasc) 2.5 mg PO DAILY ON [facility] OF [facility] Last Admin: 10/06/17 10:43 Dose: 2.5 mg Aspirin (Ecotrin) 81 mg PO DAILY ON [facility] OF [facility] Last Admin: 10/06/17 10:43 Dose: 81 mg Atorvastatin Calcium (Lipitor) 10 mg PO DIN ON [facility] OF [facility] Last Admin: 10/06/17 18:00 Dose: 10 mg Lorazepam (Ativan) 1 mg IVP ONCE PRN; Protocol PRN Reason: Anxiety Last Admin: 10/04/17 18:25 Dose: 1 mg Pantoprazole Sodium (Protonix Ec Tab) 40 mg PO 30 ON LICENSE OF [facility] Last Admin: 10/07/17 05:58 Dose: Not Given - Labs Labs: 10/04/17 07:00 PT 11.7 SECONDS (9.4-12.5) 10/03/17 18:00 INR 1.03 10/03/17 18:00 - Constitutional Appears: No Acute Distress - Head Exam Head Exam: NORMOCEPHALIC - Eye Exam Eye Exam: Normal appearance - ENT Exam ENT Exam: Mucous Membranes Moist - Respiratory Exam Respiratory Exam: Decreased Breath Sounds, Clear to Ausculation Bilateral, NORMAL BREATHING PATTERN - Cardiovascular Exam Cardiovascular Exam: REGULAR RHYTHM, +S1, +S2 Additional comments: telemetry NSR 70's - GI/Abdominal Exam GI & Abdominal Exam: Soft, Normal Bowel Sounds - Neurological Exam Neurological Exam: Alert, Awake - Psychiatric Exam Psychiatric exam: Normal Affect - Skin Skin Exam: Intact, Warm Assessment and Plan - Assessment and Plan (Free Text) Assessment: A 77 year old female who came in to the ER due to altered mental status, confused. Ct of head showed acute infarcts on the right occipital and left thalamic area.History of anxiety disorder,depression,osteoarthritis, hypertension,COPD,GERD, left shoulder basal cell carcinoma with radiation.Consult was called to insert/place Loop recorder to rule out atrial fibrillation Plan: For Loop recorder placement today at 11:30am NPO post midnight maintained Daughter at bedside, questions and concerns answered Stable heart rate and blood pressure Continue current treatment Continue current medications Will follow up Plan and treatment discussed with Dr. Padron
--- NOTE | 2017-10-07 08:28 | CARD ---
APPROVED REPORT Date of service: 10/06/2017 EXAM: Two-dimensional and M-mode echocardiogram with Doppler and color Doppler. Other Information Quality : AverageRhythm : INDICATION dizziness 2D DIMENSIONS Left Atrium (2D)3.5 (1.6-4.0cm)IVSd1.0 (0.7-1.1cm) LVDd4.0 (3.9-5.9cm)PWd1.0 (0.7-1.1cm) LVDs2.8 (2.5-4.0cm)FS (%) 30.0 % LVEF (%)57.0 (>50%) M-Mode DIMENSIONS Aortic Root2.90 (2.2-3.7cm)Aortic Cusp Exc.1.40 (1.5-2.0cm) Aortic Valve AoV Peak Zmytdvgr770.0cm/s Mitral Valve MV E Scecqbow16.7cm/sMV A Orfyjaez77.6cm/sE/A ratio0.8 TDI E/Lateral E'0.0E/Medial E'0.0 Tricuspid Valve TR Peak Bxeuayjx020dc/sRAP [id number] Peak Gr.29mmHg [id number] LEFT VENTRICLE The left ventricle is normal size. There is normal left ventricular wall thickness. The left ventricular function is normal. The left ventricular ejection fraction is within the normal range. There is normal LV segmental wall motion. RIGHT VENTRICLE The right ventricle is normal size. ATRIA The left atrium size is normal. The right atrium size is normal. The interatrial septum is intact with no evidence for an atrial septal defect. AORTIC VALVE The aortic valve is mildly calcified. There is trace to mild aortic regurgitation. MITRAL VALVE The mitral valve is normal in structure. Mitral regurgitation is mild. TRICUSPID VALVE The tricuspid valve is normal in structure. There is moderate tricuspid regurgitation. GREAT VESSELS The aortic root is normal in size. PERICARDIAL EFFUSION There is no pericardial effusion. <Conclusion> The left ventricle is normal size. There is normal left ventricular wall thickness. The left ventricular function is normal. The aortic valve is mildly calcified. Aortic sclerosis. There is trace to mild aortic regurgitation. Mitral regurgitation is mild. There is moderate tricuspid regurgitation.
--- NOTE | 2017-10-07 14:19 | CPOSTOP ---
Copied To: Renu Padron MD Attending MD: Renu Padron MD DATE: 10/07/2017 CARDIOVASCULAR LAB POST PROCEDURE NOTE DICTATING PHYSICIAN: Renu Padron MD. [employer] SUPERVISOR: Jamil Suarez set up mold technician. TYPE OF ANESTHESIA: Local anesthesia. PRE-PROCEDURE DIAGNOSIS: Cerebrovascular accident with multiple showering embolus. PROCEDURE PERFORMED: Implantation of loop recorder, [employer]. FINDINGS: Implantation of loop recorder. POST PROCEDURE CONDITION: Post procedure, the patient's condition is stable. VASCULAR ACCESS SITE: Left side of the chest underneath the skin. CLOSURE DEVICE: Dermabond. RADIATION DOSE: None. FLUORO TIME: None. Renu Padron MD
--- NOTE | 2017-10-07 16:19 | PN ---
Copied To: Froy Flores MD Attending MD: Froy Flores MD DATE: 10/07/2017 SUBJECTIVE: The patient is 77 years old, seen and examined, doing well, sitting in chair comfortable. Awaiting to go for loop recorder placement. PHYSICAL EXAMINATION: VITAL SIGNS: She is afebrile, pulse 67, respirations 20, blood pressure 140/81. LUNGS: Bilateral good airflow. No rhonchi or crackle. HEART: S1 and S2 audible. ABDOMEN: Soft. Nontender. No rebound. No guarding. NEUROLOGICAL: The patient is awake, alert, oriented, communicative. LABORATORY EXAM: No new lab available today. ASSESSMENT: 1. Status post occipital and thalamic cerebrovascular accident. 2. Hypertension. 3. Mitral regurgitation per echocardiogram. 4. Trace to mild aortic regurgitation. 5. Moderate tricuspid regurgitation. PLAN: The patient will be going for loop recorder and after that she is going to be going to subacute rehab. Froy Flores MD
[2017-10-07 17:35] VITALS: BP 142/62; PULSE 93; TEMP 97.2; O2SAT 97
--- NOTE | 2017-10-08 02:34 | CARDCATH ---
Copied To: Renu Padron MD Attending MD: Renu Padron MD PROCEDURE DATE: 10/07/2017 CARDIAC TRAINING INSTRUCTOR PROCEDURE, IMPLANTATION OF LOOP RECORDER (Lin[employer]). SCHEDULING :ELECTIVE SPANISH SPEAKING NANNY: Renu Padron MD SENIOR SOFTWARE TESTER: Aubrey Negron, oil burner technician. BRIEF CLINICAL HISTORY: A 77-year-old female with past medical history significant for hypertension, admitted with altered mental status, found to be acute CVA with multiple showering emboli, thought to be the cardiac source as well as rule out arrhythmia, so the patient is undergoing for implantation of loop recorder to rule out any arrhythmia. So, the patient was brought for implantation of loop recorder, [employer]. PROCEDURE PERFORMED: Implantation of loop recorder. DESCRIPTION OF PROCEDURE: The patient was brought to the radiographer cardiac catheterization, prepped and draped in standard sterile fashion. Left side of the chest was prepped and lidocaine was given to the fourth intercostal space 1.5 cm away from the midline. Then, [employer] Reveal injected underneath the skin and puncture site was closed with Dermabond. The patient tolerated the procedure well and returned to the floor in stable condition. Arrangement has been made for transtelephonic recording for arrhythmia. Also education was given to the family, daughter and the patient. We will follow with you. Thank you Dr. Flores for providing us the opportunity to taking care of the patient, Abimbola Jacques. Renu Padron MD cc: Froy Flores MD MTDD
== END 2017-10-07 20:45 | DRG 42 ==
LOC: ED 17:30 → ERH 20:14 → 3RSO 21:47
PROVIDERS: ADMIT Internal Medicine; ATTEND Internal Medicine
PROC: 3E0F7GC Introduction of Other Therapeutic Substance into Respiratory Tract, Via Natural or Artificial Opening (ICD-10-PCS; 2017-10-04)
PROC: 0JH632Z Insertion of Monitoring Device into Chest Subcutaneous Tissue and Fascia, Percutaneous Approach (ICD-10-PCS; principal; 2017-10-07)
DX: I63.40 Cerebral infarction due to embolism of unspecified cerebral artery (principal); E86.0 Dehydration; J44.9 Chronic obstructive pulmonary disease, unspecified; I10 Essential (primary) hypertension; R26.2 Difficulty in walking, not elsewhere classified; I49.9 Cardiac arrhythmia, unspecified; R29.702 NIHSS score 2; M15.9 Polyosteoarthritis, unspecified; I08.1 Rheumatic disorders of both mitral and tricuspid valves; E78.5 Hyperlipidemia, unspecified; R29.6 Repeated falls; F41.9 Anxiety disorder, unspecified; F32.9 Major depressive disorder, single episode, unspecified; K21.9 Gastro-esophageal reflux disease without esophagitis; Z85.828 Personal history of other malignant neoplasm of skin; Z92.3 Personal history of irradiation; Z91.81 History of falling; Z87.891 Personal history of nicotine dependence

== ENCOUNTER 2017-11-18 14:29 | Inpatient (IN) | payer MEDICARE, BC ==
[2017-11-18 14:54] VITALS: BMI 18.6
--- NOTE | 2017-11-18 15:32 | ED PDOC ---
Arrival/HPI - General Chief Complaint: Medical Clearance Time Seen by Provider: 11/18/17 15:11 Historian: Patient - History of Present Illness Narrative History of Present Illness (Text): 11/18/17 15:31 77 year old female, with past medical history of depression, osteoarthritis, hypertension, GERD, and COPD, presents to the Emergency department from [facility] for medical clearance for rectal prolapse surgery tomorrow. Patient currently denies any somatic complaints. Patient denies any fever, chills, nausea, vomiting, diarrhea, abdominal pain, chest pain, shortness of breath, cough, headache, dizziness, neck pain, back pain, or any other complaints. Symptom Onset: Gradual Symptom Course: Unchanged Activities at Onset: Light Context: Other ([facility]) Past Medical History - Provider Review Nursing Documentation Reviewed: Yes - Infectious Disease Hx of Infectious Diseases: None - Tetanus Immunization Tetanus Immunization: Unknown - Cardiac Hx Hypertension: Yes - Pulmonary Hx Chronic Obstructive Pulmonary Disease (COPD): Yes - Neurological HX Cerebrovascular Accident: Yes - HEENT Hx HEENT Disorder: Yes - Renal Hx Renal Disorder: No - Endocrine/Metabolic Hx Endocrine Disorders: No - Hematological/Oncological Hx Shingles: Yes - Integumentary Hx Psoriasis: Yes - Musculoskeletal/Rheumatological Hx Arthritis: Yes Hx Osteoarthritis: Yes - Gastrointestinal Hx Crohn's Disease: Yes Hx Gastroesophageal Reflux: Yes Other/Comment: Rectal prolapse - Genitourinary/Gynecological Hx Genitourinary Disorders: No - Psychiatric Hx Anxiety: Yes Hx Depression: Yes Hx Substance Use: No - Surgical History Hx Appendectomy: Yes Hx Tonsillectomy: Yes - Anesthesia Hx Anesthesia: Yes - Suicidal Assessment Feels Threatened In Home Enviroment: No Family/Social History - Physician Review Nursing Documentation Reviewed: Yes Family/Social History: No Known Family HX Smoking Status: Former Smoker Hx Alcohol Use: No Hx Substance Use: No Hx Substance Use Treatment: No Allergies/Home Meds Allergies/Adverse Reactions: Allergies cefuroxime axetil [From Ceftin] Allergy (Verified 10/03/17 17:45) DIARRHEA gluten Allergy (Verified 10/03/17 17:45) ANAPHYLAXIS Home Medications: Home Meds Medication Instructions Recorded Confirmed Ranitidine HCl [Zantac] 150 mg PO DAILY 10/04/17 10/04/17 amLODIPine [Norvasc] 2.5 mg PO BID 10/04/17 10/04/17 Review of Systems - Physician Review All systems were reviewed & negative as marked: Yes - Review of Systems Constitutional: absent: Fevers Respiratory: absent: SOB, Cough Cardiovascular: absent: Chest Pain Gastrointestinal: absent: Abdominal Pain, Diarrhea, Nausea, Vomiting Musculoskeletal: absent: Back Pain, Neck Pain Neurological: absent: Headache, Dizziness Physical Exam Vital Signs Reviewed: Yes Vital Signs Temp Resp BP 11/18/17 14:30 97.8 F 18 111/85 Temperature: Afebrile Blood Pressure: Normal Pulse: Regular Respiratory Rate: Normal Appearance: Positive for: Non-Toxic, Comfortable, Other (Frale appearing) Pain Distress: None Mental Status: Positive for: Alert and Oriented X 3 - Systems Exam Head: Present: Atraumatic, Normocephalic Pupils: Present: PERRL Extroacular Muscles: Present: EOMI Conjunctiva: Present: Normal Mouth: Present: Moist Mucous Membranes Neck: Present: Normal Range of Motion Respiratory/Chest: Present: Clear to Auscultation, Good Air Exchange. No: Respiratory Distress, Accessory Muscle Use Cardiovascular: Present: Regular Rate and Rhythm, Normal S1, S2. No: Murmurs Abdomen: No: Tenderness, Distention, Peritoneal Signs Genitourinary/Pelvic Exam: Present: Other (Rectal prolapse noted with no bleeding.) Back: Present: Normal Inspection Upper Extremity: Present: Normal Inspection. No: Cyanosis, Edema Lower Extremity: Present: Normal Inspection. No: Edema Neurological: Present: GCS=15, CN II-XII Intact, Speech Normal Skin: Present: Warm, Dry, Normal Color. No: Rashes Psychiatric: Present: Alert, Oriented x 3, Normal Insight, Normal Concentration Medical Decision Making ED Course and Treatment: 11/18/17 15:43 Impression: 77 year old female presents to the Emergency Department for medical clearance for rectal prolapse surgery. Plan: -- EKG -- Labs -- Chest X-ray -- Urinalysis -- Reassess and disposition Prior Visits: Notes and results from previous visits were reviewed. Progress Notes: 11/18/17 16:20 EKG: Ordered, reviewed, and independently interpreted the EKG. Rate :74 BPM Rhythm : NSR Interpretation : No ST-segment elevations or depressions, no T-wave inversions, normal intervals. 11/18/17 18:[address] Flores, who is aware and agrees with Emergency Department management plan. Accepts patient under her service and requests Dr. Padron on consult. Patient agreeable w/POC. Labs, ekg and cxr unremarkable. 11/18/17 18:[address] Lopez, who is aware and is scheduled to do surgery tomorrow. Requests to contact surgery resident to come evaluate the patient. Surgery resident notified. 11/18/17 21:59 - EKG Interpretation Interpreted by ED Physician: Yes Type: 12 lead EKG - Scribe Statement The provider has reviewed the documentation as recorded by the Scribe Tesfaye Blanchard. All medical record entries made by the Scribe were at my direction and personally dictated by me. I have reviewed the chart and agree that the record accurately reflects my personal performance of the history, physical exam, medical decision making, and the department course for this patient. I have also personally directed, reviewed, and agree with the discharge instructions and d isposition. Disposition/Present on Arrival - Present on Arrival Any Indicators Present on Arrival: No History of DVT/PE: No History of Uncontrolled Diabetes: No Urinary Catheter: No History of Decub. Ulcer: No History Surgical Site Infection Following: None - Disposition Have Diagnosis and Disposition been Completed?: Yes Diagnosis: Rectal prolapse Disposition: HOSPITALIZED Disposition Time: 18:40 Patient Plan: Admission Condition: STABLE
--- NOTE | 2017-11-18 16:22 | RAD ---
Date of service: 11/18/2017 HISTORY: pre operative COMPARISON: 10/28/2017 FINDINGS: LUNGS: No active pulmonary disease. PLEURA: No significant pleural effusion identified, no pneumothorax apparent. CARDIOVASCULAR: Normal. OSSEOUS STRUCTURES: No significant abnormalities. VISUALIZED UPPER ABDOMEN: Normal. OTHER FINDINGS: None. IMPRESSION: No active disease.
[2017-11-18 17:05] LABS: BASO # 0.03 K/mm3 (0.0-2.0); BASO % 0.6 % (0.0-3.0); EOS # 0.3 (0.0-0.7); EOS % 5.1 % (1.5-5.0); GRAN # 3.25 (1.4-6.5); GRAN % 61.8 % (50.0-68.0); HEMOGLOBIN 11.5 g/dL (12.0-16.0); LYMPH # 1.1 (1.2-3.4); LYMPH % 21.1 % (22.0-35.0); MEAN CELL VOLUME 91.1 fl (80.0-105.0); MEAN CORPUSCULAR HEMOGLOBIN 29.3 pg (25.0-35.0); MEAN CORPUSCULAR HGB CONC 32.2 g/dl (31.0-37.0); MEAN PLATELET VOLUME 10.2 fl (7.0-11.0); MONO # 0.6 (0.1-0.6); MONO % 11.4 % (1.0-6.0); RBC 3.92 10^6/uL (3.5-6.1); RED CELL DISTRIBUTION WIDTH 14.2 % (11.5-14.5); WHITE BLOOD COUNT 5.3 10^3/ul (4.5-11.0)
[2017-11-18 17:14] LABS: INR 1.06; PARTIAL THROMBOPLASTIN TIME 28.8 Seconds (25.1-36.5); PROTHROMBIN TIME 12.1 SECONDS (9.4-12.5)
[2017-11-18 17:26] LABS: ALB/GLOB RATIO 1.4 (1.1-1.8); ALBUMIN 3.7 g/dL (3.0-4.8); ALT/SGPT 75 U/L (7-56); AST/SGOT 95 U/L (14-36); BLOOD UREA NITROGEN 19 mg/dL (7-21); CALCIUM 8.9 mg/dL (8.4-10.5); GFR NON-AFRICAN AMERICAN > 60
[2017-11-18] MEDS ORDERED: Non Formulary Medication (Ranitidine Hcl [Zantac] 150 MG) PO SCH (17:30)
[2017-11-18] MEDS: Dextrose 5%/0.45% NS 1,000 ML IV SCH (18:20)
--- NOTE | 2017-11-18 20:30 | CP.PCM.CON ---
<Yonathan Renae - Last Filed: 11/18/17 20:27> History of Present Illness - History of Present Illness History of Present Illness: General Surgery Consult Note for Dr. Lopez This is a 77F with a PMH of CVA, OA, COPD, HTN, GERD, and depression who is well known to the service. She has been admitted previously due to prolapsed rectum however at the time she and her family wanted to try and treat her prolapsed rectum with dietary changes. The patient has no had improvments and now would like to proceed with surgical correction due to her quality of life. She also reports palpitations howver she has a loop recorder which had not picked up any events. She reports bright red blood per rectum but only on the toilet paper after wiping. She denies black or tarry stools, hematochezia, abdominal pain, nausea/vomiting, fever, chills, CP, and SOB. PMH: CVA, OA, COPD, HTN, GERD, PSH: appendectomy All: cefuroxime, gluten Fam Hx: non-contributory Soc Hx: denies any prior tobacco, alcohol, or drug use. Currently lives at [facility] and daughter provides good support system. Review of Systems - Review of Systems All systems: reviewed and no additional remarkable complaints except Review of Systems: 12 point review of symptoms conducted and negative except for blood per rectum and palpitations Past Patient History - Infectious Disease Hx of Infectious Diseases: None - Tetanus Immunizations Tetanus Immunization: Unknown - Past Social History Smoking Status: Former Smoker - CARDIAC Hx Hypertension: Yes - PULMONARY Hx Chronic Obstructive Pulmonary Disease (COPD): Yes - NEUROLOGICAL HX Cerebrovascular Accident: Yes - HEENT Hx HEENT Problems: Yes - RENAL Hx Chronic Kidney Disease: No - ENDOCRINE/METABOLIC Hx Endocrine Disorders: No - HEMATOLOGICAL/ONCOLOGICAL Hx Shingles: Yes - INTEGUMENTARY Hx Psoriasis: Yes - MUSCULOSKELETAL/RHEUMATOLOGICAL Hx Arthritis: Yes Hx Osteoarthritis: Yes - GASTROINTESTINAL Hx Crohn's Disease: Yes Hx Gastroesophageal Reflux: Yes Other/Comment: Rectal prolapse - GENITOURINARY/GYNECOLOGICAL Hx Genitourinary Disorders: No - PSYCHIATRIC Hx Anxiety: Yes Hx Depression: Yes Hx Substance Use: No - SURGICAL HISTORY Hx Appendectomy: Yes Hx Tonsillectomy: Yes - ANESTHESIA Hx Anesthesia: Yes Meds Allergies/Adverse Reactions: Allergies Allergy/AdvReac Type Severity Reaction Status Date / Time cefuroxime axetil Allergy DIARRHEA Verified 10/03/17 17:45 [From Ceftin] gluten Allergy ANAPHYLAXIS Verified 10/03/17 17:45 - Medications Medications: Current Medications Acetaminophen (Tylenol 325mg Tab) 650 mg PO Q6H PRN PRN Reason: Fever >100.4 F Amlodipine Besylate (Norvasc) 2.5 mg PO BID LIO Atorvastatin Calcium (Lipitor) 10 mg PO DIN LIO Famotidine (Pepcid) 20 mg PO HS LIO Dextrose/Sodium Chloride (Dextrose 5%/0.45% Ns 1000 Ml) 1,000 mls @ 60 mls/hr IV .[id number] LIO Last Admin: 11/18/17 18:20 Dose: 60 mls/hr Polyethylene Glycol (Miralax) 17 gm PO BID LIO Physical Exam - Constitutional Appears: Non-toxic, No Acute Distress - Head Exam Head Exam: ATRAUMATIC, NORMOCEPHALIC - Eye Exam Eye Exam: EOMI - ENT Exam ENT Exam: Mucous Membranes Moist - Respiratory Exam Respiratory Exam: NORMAL BREATHING PATTERN - Cardiovascular Exam Cardiovascular Exam: +S1, +S2 - GI/Abdominal Exam GI & Abdominal Exam: Soft. absent: Tenderness - Rectal Exam Additional comments: Rectum prolapsed about 1.5 inches red healthy mucosa - Neurological Exam Neurological exam: Alert, Oriented x3 - Psychiatric Exam Psychiatric exam: Normal Affect, Normal Mood - Skin Skin Exam: Dry, Intact Results - Vital Signs Recent Vital Signs: Last Vital Signs Temp 97.8 F 11/18/17 14:30 Pulse 72 11/18/17 19:51 Resp 18 11/18/17 19:51 BP 116/78 11/18/17 19:51 Pulse Ox 99 11/18/17 19:51 - Labs Result Diagrams: 11/18/17 16:40 11/18/17 16:40 Labs: Laboratory Results - last 24 hr 11/18/17 11/18/17 11/18/17 16:40 16:40 16:40 WBC 5.3 D RBC 3.92 Hgb 11.5 L Hct 35.7 L MCV 91.1 MCH 29.3 MCHC 32.2 RDW 14.2 Plt Count 240 MPV 10.2 Gran % 61.8 Lymph % (Auto) 21.1 L Spencer % (Auto) 11.4 H Eos % (Auto) 5.1 H Baso % (Auto) 0.6 Gran # 3.25 Lymph # (Auto) 1.1 L Spencer # (Auto) 0.6 Eos # (Auto) 0.3 Baso # (Auto) 0.03 PT 12.1 INR 1.06 APTT 28.8 Sodium 134 Potassium 3.9 Chloride 100 Carbon Dioxide 28 Anion Gap 10 BUN 19 Creatinine 0.6 L Est GFR ( Amer) > 60 Est GFR (Non-Af Amer) > 60 Random Glucose 98 Calcium 8.9 Total Bilirubin 0.3 AST 95 H D ALT 75 H Alkaline Phosphatase 97 Total Protein 6.4 Albumin 3.7 Globulin 2.7 Albumin/Globulin Ratio 1.4 Assessment & Plan - Assessment and Plan (Free Text) Assessment: 77F with prolapsed rectum NPO IVF Plan for OR D/W Dr. John Renae PGY3 <Jim Lopez - Last Filed: 11/22/17 10:24> Results - Vital Signs Recent Vital Signs: Last Vital Signs Temp 98 F 11/20/17 08:07 Pulse 76 11/20/17 06:00 Resp 18 11/20/17 13:03 BP 150/90 11/20/17 09:12 Pulse Ox 99 11/20/17 06:00 - Labs Result Diagrams: 11/20/17 08:00 11/20/17 08:00 Assessment & Plan - Assessment and Plan (Free Text) Assessment: Dx Prolapsed Rectum(Mucosal-Class IV Hemorrhoid) Severe Constipation Extreme Lax Anal Sphincter Tone Recommend PPH Stapled Hemorrhoidectomy Thiersch Anal Ring Insertion This consult done under my direct supervision Chaparro Lopez MD FACS - Date & Time Date: 11/19/17 Time: 10:00
--- NOTE | 2017-11-19 03:42 | HP ---
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 She initially had constipation for few days, was treated, but later on she started to have discomfort. She was found to have rectal prolapse. She was admitted on 10/27/2017 with similar complaints and since she was constipated, she was given laxative with some relief. Dr. Lopez was consulted and he recommended for surgery, although is high risk per family because of possible complication, the patient's family refused to have it done. So, she was transferred back to the [facility] for rehab. I saw the patient 2 days ago. She was complaining of rectal discomfort. She states that she cannot live like that. She asked her family to reconsider. They spoke to Dr. Lopez and agreed for surgical intervention. Since the patient is having recurrent prolapse before it was reducible, now it comes right back after it is reduced. PAST MEDICAL HISTORY: Significant for hypertension, hypothyroidism, recent embolic stroke, status post loop recorder placement. ALLERGIES: SHE IS ALLERGIC TO CEFUROXIME AND GLUTEN. MEDICATIONS: In the senior living, she is on amlodipine 2.5 daily, Zantac 150 daily, MiraLax 17 g twice a day, Reglan 5 mg three times a day, atorvastatin 10 mg daily, aspirin 81 daily, and nebulizer treatment. SOCIAL HISTORY: She lives with her family. Denies smoking or drinking. She used to smoke heavy before, but quit 15 years ago, she used to smoke 1 to 2 packs daily. REVIEW OF SYSTEMS: Significant for rectal discomfort and intermittent bleeding. PHYSICAL EXAMINATION: GENERAL: The patient is awake and alert, able to communicative. VITAL SIGNS: She is afebrile, pulse 76, respirations 18, blood pressure 111/85. LUNGS: Bilateral fair airflow. No rhonchi or crackles. HEART: S1 and S2 audible. ABDOMEN: Soft and nontender. No rebound. No guarding. NEUROLOGIC: She is awake, alert, oriented, able to communicate. Moves all extremities. RECTAL: She has rectal prolapse. No active bleeding. LABORATORY DATA: WBC 5.3, hemoglobin 11.5, hematocrit 35.7, and platelet 240. PT 12.1 and INR 1.06. Chemistry is pending. X-ray chest is unremarkable. ASSESSMENT: 1. Rectal prolapse. 2. Intermittent rectal bleeding. 3. Recent embolic stroke was found on MRI on 10/04/2017, she was found to have small acute versus subacute infarction and multiple punctate right occipital foci and in the region of left thalamus. 4. Hypothyroidism. PLAN: We will restart the patient on her usual medications. Dr. Padron for consult. Dr. Lopez for consult has been requested. Froy Flores MD
[2017-11-19] MEDS: POLYETHYLENE GLYCOL 3350 17 GM/Dose PACKET PO SCH ×2 (09:38→18:40)
--- NOTE | 2017-11-19 10:04 | CARD ---
APPROVED REPORT Date of service: 11/18/2017 EKG Measurement Heart [id number] <Conclusion> Normal sinus rhythm Normal ECG
[2017-11-19] MEDS ORDERED: Bupivacaine-Epi 0.25%-1:200,000 PF Inj ONE (10:46)
[2017-11-19] MEDS ORDERED: Methylene Blue 10 mg/mL(10ml) IV ONE (10:46)
[2017-11-19] MEDS ORDERED: Bacitracin Ointment 30 GM TUBE ONE (10:46)
[2017-11-19] MEDS ORDERED: Lidocaine 1% w Epi 1:100,000 Inj ONE (10:46)
[2017-11-19] MEDS ORDERED: Propofol 10 mg/ml Inj (20 ML) ONE (10:48)
[2017-11-19] MEDS ORDERED: Rocuronium 10 mg/ml (5 ml) ONE (10:50)
[2017-11-19] MEDS ORDERED: Succinylcholine 200 mg/10 ml Inj IV ONE (10:50)
[2017-11-19] MEDS ORDERED: ePHEDrine 50 mg/ml Inj ONE (11:06)
[2017-11-19] MEDS ORDERED: Bupivacaine 0.5% 50 ML IJ ONE (11:21)
[2017-11-19] MEDS: Bupivacaine 0.25% 50 ML INJ IJ ONE ×2 (11:30→12:00)
[2017-11-19] MEDS ORDERED: Absorbable Gelatin Sponge Size 100 ONE (11:47)
[2017-11-19] MEDS ORDERED: Glycopyrrolate 0.2 mg/ml (2ml vial) ONE (12:05)
--- NOTE | 2017-11-19 12:23 | PCM.SURG1 ---
Surgeon's Initial Post Op Note - Surgeon's Notes Surgeon: Dr. Lopez Grounds Maintenance Worker: Dr. Palma PGY4 Type of Anesthesia: General Endo Pre-Operative Diagnosis: rectal prolapse Operative Findings: internal hemorrhoids, rectal prolapse, loose anal sphincter Post-Operative Diagnosis: rectal prolapse Operation Performed: prolapse and hemorrhoids stapling procedure, therch anal ring Specimen/Specimens Removed: intact rectal mucosa ring Estimated Blood Loss: EBL {In ML}: 5 Drains Used: No Drains Post-Op Condition: Good Date of Surgery/Procedure: 11/19/17 Time of Surgery/Procedure: 12:23
[2017-11-19] MEDS ORDERED: Lactated Ringer's 1,000 ML IV SCH (12:30)
[2017-11-19] MEDS: Morphine 2 mg/ml ISec IVP PRN ×2 (12:35→13:15)
[2017-11-19] MEDS ORDERED: Morphine 4 mg/ml ISec ONE ×2 (12:36→13:06)
--- NOTE | 2017-11-19 16:47 | PN ---
DATE: 11/19/2017 SUBJECTIVE: The patient is 77 years old, known to me from previous admission. The patient was taken to OR for correction of rectal prolapse along with hemorrhoidectomy. PHYSICAL EXAMINATION: GENERAL: She is awake, alert, oriented, and anxious. VITAL SIGNS: She is afebrile, pulse 77, respirations 20, blood pressure 137/75. LUNGS: Bilateral fair airflow. No rhonchi or crackle. HEART: S1, S2 audible. ABDOMEN: Soft, nontender. No rebound, no guarding. NEUROLOGICAL: She is awake and alert, able to communicate. ASSESSMENT: 1. Rectal prolapse. 2. History of embolic stroke. 3. Hypertension. 4. Hyperlipidemia. 5. Hypothyroidism. 6. Hemorrhoids. PLAN: The patient is going for rectal prolapse repair and possible hemorrhoidectomy. We will continue her on IV fluids, start on liquid diet postprocedure and keep her on laxative. Continue her usual medication and we will reevaluate the patient in a.m. We will follow up CBC and CMP in a.m. Froy Flores MD
[2017-11-19] MEDS: Clindamycin 600mg/50ml D5W 600 MG/50 ML VIAL IVPB SCH (20:35)
[2017-11-20 08:25] VITALS: O2SAT 99
[2017-11-20 08:32] LABS: BASO # 0.03 K/mm3 (0.0-2.0); BASO % 0.5 % (0.0-3.0); EOS # 0.3 (0.0-0.7); EOS % 4.8 % (1.5-5.0); GRAN # 4.16 (1.4-6.5); GRAN % 63.9 % (50.0-68.0); HEMOGLOBIN 11.3 g/dL (12.0-16.0); LYMPH # 1.3 (1.2-3.4); MEAN CELL VOLUME 90.7 fl (80.0-105.0); MEAN CORPUSCULAR HEMOGLOBIN 29.2 pg (25.0-35.0); MEAN CORPUSCULAR HGB CONC 32.2 g/dl (31.0-37.0); MEAN PLATELET VOLUME 10.5 fl (7.0-11.0); MONO # 0.7 (0.1-0.6); MONO % 10.8 % (1.0-6.0); RBC 3.87 10^6/uL (3.5-6.1); RED CELL DISTRIBUTION WIDTH 14.2 % (11.5-14.5); WHITE BLOOD COUNT 6.5 10^3/ul (4.5-11.0)
--- NOTE | 2017-11-20 08:46 | CP.PCM.PN ---
Subjective - Date & Time of Evaluation Date of Evaluation: 11/20/17 Time of Evaluation: 08:42 - Subjective Subjective: Surgery: Dr. Lopez Patient had difficulty voiding last night, required straight cath. Patient was able to void 300cc s/p straight cath. NO f/c overnight. Pain controlled with tylenol. No bowel movement this am. Objective - Vital Signs/Intake and Output Vital Signs (last 24 hours): Temp Pulse Resp BP Pulse Ox 97.6 F 18 L 20 158/108 H 99 11/20/17 06:00 11/20/17 08:07 11/20/17 06:00 11/20/17 06:00 11/20/17 06:00 Intake and Output: 11/20/17 11/20/17 06:59 18:59 Intake Total 480 Balance 480 - Medications Medications: Current Medications Acetaminophen (Tylenol 325mg Tab) 650 mg PO Q6H PRN PRN Reason: Fever >100.4 F Amlodipine Besylate (Norvasc) 2.5 mg PO BID [facility] Last Admin: 11/19/17 18:40 Dose: 2.5 mg Atorvastatin Calcium (Lipitor) 10 mg PO DIN [facility] Last Admin: 11/19/17 18:40 Dose: 10 mg Famotidine (Pepcid) 20 mg PO HS [facility] Last Admin: 11/19/17 21:06 Dose: 20 mg Polyethylene Glycol (Miralax) 17 gm PO BID [facility] Last Admin: 11/19/17 18:40 Dose: 17 gm - Labs Labs: 11/20/17 08:00 11/18/17 16:40 PT 12.1 SECONDS (9.4-12.5) 11/18/17 16:40 INR 1.06 11/18/17 16:40 APTT 28.8 Seconds (25.1-36.5) 11/18/17 16:40 - Constitutional Appears: Non-toxic, No Acute Distress - Head Exam Head Exam: ATRAUMATIC, NORMOCEPHALIC - Eye Exam Eye Exam: EOMI, Normal appearance - ENT Exam ENT Exam: Mucous Membranes Moist - Respiratory Exam Respiratory Exam: NORMAL BREATHING PATTERN. absent: Respiratory Distress - Cardiovascular Exam Cardiovascular Exam: REGULAR RHYTHM. absent: Tachycardia - GI/Abdominal Exam GI & Abdominal Exam: Soft. absent: Distended, Tenderness - Rectal Exam Additional comments: dressing removed. perianal incisions CDI, anus patent with WALESKA, no evidence of bleeding. - Neurological Exam Neurological Exam: Alert, Awake - Psychiatric Exam Psychiatric exam: Normal Affect, Normal Mood Assessment and Plan - Assessment and Plan (Free Text) Assessment: 77 y/o female w/ hemorrhoids and prolapse s/p PPH and Therch anal ring POD1 Plan: -cleared for d/c from surgical standpoint -cont mirilax BID -cont reg diet -tylenol for pain -f/u in 1-2 weeks -keep surgical area clean and dry -ok to shower -d/w Dr. Lopez [facility] PGY4
[2017-11-20 08:52] LABS: BLOOD UREA NITROGEN 11 mg/dL (7-21); CALCIUM 8.9 mg/dL (8.4-10.5); GFR NON-AFRICAN AMERICAN > 60
[2017-11-20] MEDS: Clindamycin 600mg/50ml D5W 600 MG/50 ML VIAL IVPB SCH (09:01)
[2017-11-20] MEDS: Dextrose 5%/0.45% NS 1,000 ML IV SCH (09:02)
[2017-11-20 09:13] VITALS: BP 150/90
[2017-11-20] MEDS: POLYETHYLENE GLYCOL 3350 17 GM/Dose PACKET PO SCH (09:13)
[2017-11-20] MEDS ORDERED: Mupirocin 2% Ointment 15 GM TUBE TOP SCH (11:00)
[2017-11-20 13:03] VITALS: RESP 18
[2017-11-20 13:33] VITALS: PULSE 76
[2017-11-20 13:34] VITALS: TEMP 98
--- NOTE | 2017-11-21 14:19 | DS ---
HISTORY OF PRESENT ILLNESS: The patient is 77 years old, seen and examined, complained of some rectal discomfort. Wants to have bowel movement, but did not eat whole day long yesterday. PHYSICAL EXAMINATION: VITAL SIGNS: She is afebrile, pulse 76, respirations 20, and blood pressure 150/90. LUNGS: Bilateral fair airflow. No rhonchi or crackle. HEART: S1, S2 audible ABDOMEN: Soft. NEUROLOGICAL: She is awake, alert, oriented, communicative. LABORATORY DATA: WBC is 6.5, hemoglobin 11.3, hematocrit 35.1 and platelets 256. Chemistry: Sodium 134, potassium 4.0, chloride 97, CO2 of 29, BUN 11, creatinine 0.7, and blood sugar 151. ASSESSMENT: 1. History of embolic stroke two months ago. 2. Rectal prolapse, status post stapling. 3. History of hypertension. 4. Status post hemorrhoidectomy. PLAN: Patient is being transferred back to [facility]. She will resume MiraLax. We will continue Tylenol. I will followup within next week. Froy Flores MD
--- NOTE | 2017-11-22 08:55 | CON ---
DATE: 11/19/2017 REASON FOR CONSULTATION AND FOLLOWUP: Preop evaluation; risk stratification; rectal prolapse surgery. BRIEF CLINICAL HISTORY: This is a 77-year-old female with a past medical history significant for anxiety disorder, hypertension, COPD, and gastrointestinal reflexes, presented with altered mental status on last admission, found to be subacute infarct in multiple occipital lobe. Neurologist suggested loop recorder to the patient to unmask any occult arrhythmia. The patient underwent loop recorder implantation on 10/07/2017. Now, the patient admitted again for rectal prolapse elective surgery. The patient was previously admitted on 10/27/2017 for the rectal prolapse and was cleared for the surgery, but the patient was discharged home and to the outpatient. PAST MEDICAL HISTORY: Past history significant for gastrointestinal reflex, hypertension, also COPD, history of left shoulder, basal cell carcinoma, and got radiation. Recent cardiac workup as follows, the patient had echocardiography on 10/06/2017 that revealed normal segmental wall motion, calcific aortic valve, [id number] aortic regurgitation, mild mitral regurgitation, moderate tricuspid regurgitation, RV systolic pressure of 39, calculated ejection fraction 57%. SOCIAL HISTORY: Denies any history of alcohol abuse. CURRENT MEDICATION: The patient at home was taking amlodipine 2.5 mg daily, ranitidine, MiraLAX, atorvastatin, aspirin, albuterol inhaler. ALLERGIES: ALLERGIC TO GLUTEN, ALLERGIC TO CEFUROXIME. EKG done today, that revealed normal sinus, no acute ST-T changes noted. IMPRESSION: 77-year-old female with past medical history significant for chronic obstructive pulmonary disease, hypertension, admitted with rectal prolapse, preserved LV function, normal EKG. No evidence of arrhythmia, no evidence of ischemia, no evidence of congestive heart failure. The patient is cleared to go for surgery with [id number] risk with underlying comorbidities and history of cerebrovascular accident in September 2012, but no absolute contraindication for surgery. The patient is losing blood and wetting the undergarment as well as diapers, so we will proceed for rectal surgery with moderate [id number] risk. The patient had echocardiography done that showed ejection fraction 55%, [id number] aortic regurgitation and mild mitral regurgitation, [id number] tricuspid regurgitation and RV systolic pressure of 39, ejection fraction 57%. As mentioned, follow up postop and no absolute contraindication. We will notify OR. In physician and nurse communication, the patient is cleared for rectal surgery from cardiology point of view. Thank you Dr. Flores, for allowing us this opportunity in taking care of patient Abimbola Jacques. Renu Padron MD
--- NOTE | 2017-11-26 10:16 | OP ---
PROCEDURE DATE: 11/19/2017 SURGEON: Jim Lopez MD QUALITY ASSURANCE ASSISTANT: Shelbie Menendez DO, PGY-4. ASBESTOS MICROSCOPIST: Dante Mccormick MD ANESTHESIA: General endotracheal - Marcaine 0.5 - 18 mL. PREOPERATIVE DIAGNOSES: 1. Rectal prolapse. 2. Anal laxity. 3. Cerebrovascular accident. POSTOPERATIVE DIAGNOSES: 1. Rectal prolapse. 2. Anal laxity. 3. Cerebrovascular accident. PROCEDURE: 1. Procedure for prolapse and hemorrhoids, stapled hemorrhoidectomy. 2. Insertion of Thiersch anal ring. OPERATIVE INDICATIONS: The patient is a 77-year-old female who recently was diagnosed as having prolapsed rectum. She has had a greater than 3-year history of severe unrelenting constipation with straining just to move her bowels and the patient has what appears to be a massive mucosal hemorrhoidal prolapse (class IV). The patient had this reduced at a previous admission, has had multiple episodes of bleeding and significant attempts at controlling this conservatively have failed on 2 occasions. The patient was scheduled for surgery and the patient's family had changed their mind and declined surgery. At this point, they are now all in agreement and the power of client architect, her first daughter, Megan has consented and signed the informed consent. Risks, benefits and alternatives with their anticipated outcomes were explained and fully discussed. The patient has been on bowel preparation. OPERATIVE NOTE: The patient was brought to the operating room from the same-day holding area. She undergoes time-out procedure, is identified by her wristband and is placed on the table in a prone jackknife position following intubation and insertion of an endotracheal tube. Sequential compression devices were placed on her lower extremities and she is now placed in the jackknife position with the buttocks draped with adhesive tape, prepped with Betadine and then aseptically draped. Anorectal examination is now performed demonstrating the extreme laxity of the anal sphincter musculature and a perirectal block was employed with the 0.5% bupivacaine insertion. The PPH stapling obturator anoscope was inserted and the anorectum was inspected and the obturator removed and the dilator anoscope was secured to the skin with 0 silk interrupted sutures. A pursestring suture of 2-0 Prolene is placed with seromuscular particular insertion, not to include the levator ani rectal musculature. This is done at the 3-4 cm cale from the dentate line and once the pursestring is placed, the needle was removed. The PPH stapler was inserted, opened and the pursestring pulled tight and closed on to the axial shaft and tightened, brought through the PPH stapler and the stapler was then closed with the pursestring under tension, pulling all the excessive rectal mucosal tissue into the stapling head. Once this is performed, the stapler was fired and held for 120 seconds and then released, opened and the stapler removed from the anorectum. The specimen is now inspected demonstrating mucosal and vascular tissue in an intact length without any evidence of rectal musculature. Hemostasis is now secured with additional 2-0 chromic interrupted sutures where necessary and a Gelfoam packing is placed in a rolled technique into the anorectum against the staple line. The exterior anus is now reprepped with Betadine and infiltrated in the four quadrants, 12, 6, 3, and 9 o'clock just outside the external venous confluence. Incision made in each location and a #1 Prolene suture is inserted into the 3 o'clock position and advanced to the 12, brought out and then reinserted in and brought circumferentially around through each location and then returning to the 3 o'clock position and is brought up snugged with the anoscope in position and the Thiersch anal ring is now tied in place, cut and buried subcutaneously. The subcuticular closures of 4-0 Biosyn were employed with Dermabond adhesive and a dry dressing placed over same. The patient is awakened, extubated and transported to the recovery room in a satisfactory condition. Sponge, instrument, suture count were verified as correct at the end of the procedure. Estimated blood loss during this procedure was less than 10 mL of blood. This dictation will be electronically signed without being read. The surgical assistants were present throughout the procedure and were especially helpful in the dissection of the anal ring and the mucosal subserosal pursestring placement. Jim Lopez MD
== END 2017-11-20 13:46 | DRG 349 ==
LOC: ED 14:29 → ERH 19:02 → 3RNO 22:17 → 3RSO 11-19 16:56
PROVIDERS: ADMIT Internal Medicine; ATTEND Internal Medicine
PROC: 0DU Gastrointestinal System, Supplement (ICD-10-PCS; 2017-11-19)
PROC: 06BY4ZC Excision of Hemorrhoidal Plexus, Percutaneous Endoscopic Approach (ICD-10-PCS; principal; 2017-11-19 11:00)
DX: K62.3 Rectal prolapse (principal); K64.8 Other hemorrhoids; K62.89 Other specified diseases of anus and rectum; I10 Essential (primary) hypertension; J44.9 Chronic obstructive pulmonary disease, unspecified; I08.3 Combined rheumatic disorders of mitral, aortic and tricuspid valves; K21.9 Gastro-esophageal reflux disease without esophagitis; K59.00 Constipation, unspecified; M19.90 Unspecified osteoarthritis, unspecified site; E03.9 Hypothyroidism, unspecified; E78.5 Hyperlipidemia, unspecified; Z86.73 Personal history of transient ischemic attack (TIA), and cerebral infarction without residual deficits; Z87.891 Personal history of nicotine dependence

== ENCOUNTER 2017-12-06 15:53 | Inpatient (IN) | payer MEDICARE, BC ==
[2017-12-06 16:40] VITALS: BMI 16.9
[2017-12-06] MEDS ORDERED: Morphine 2 mg/ml ISec IVP STA ×2 (16:53→18:59)
--- NOTE | 2017-12-06 17:13 | ED PDOC ---
Arrival/HPI - General Chief Complaint: Medical Clearance Time Seen by Provider: 12/06/17 16:14 Historian: Patient, Family - History of Present Illness Narrative History of Present Illness (Text): 12/06/17 17:14 77yo female with pmhx of COPD, hypertension, referred to ED by Dr. Lopez for admission. Patient's daughter by the bedside states patient was seen today by Dr. Lopez and couldn't reduce the prolapse manually without anesthesia, so he sent patient to ED for admission and re attempt of prolapse reduction tomorrow under anesthesia. Past Medical History - Provider Review Nursing Documentation Reviewed: Yes - Infectious Disease Hx of Infectious Diseases: None - Tetanus Immunization Tetanus Immunization: Unknown - Cardiac Hx Cardiac Disorders: No - Pulmonary Hx Respiratory Disorders: Yes Hx Chronic Obstructive Pulmonary Disease (COPD): Yes Hx Emphysema: Yes - Neurological Hx Neurological Disorder: No - HEENT Hx HEENT Disorder: Yes Hx Cataracts: Yes - Renal Hx Renal Disorder: No - Endocrine/Metabolic Hx Endocrine Disorders: No - Hematological/Oncological Hx Blood Disorders: No - Integumentary Hx Dermatological Disorder: Yes Hx Psoriasis: Yes - Musculoskeletal/Rheumatological Hx Musculoskeletal Disorders: Yes - Gastrointestinal Hx Gastrointestinal Disorders: Yes Hx Crohn's Disease: Yes Hx Gastroesophageal Reflux: Yes Other/Comment: Rectal prolapse - Genitourinary/Gynecological Hx Genitourinary Disorders: Yes Hx Urinary Tract Infection: Yes - Psychiatric Hx Psychophysiologic Disorder: No Hx Substance Use: No - Surgical History Hx Appendectomy: Yes Other/Comment: skin ca removal - Anesthesia Hx Anesthesia Reactions: No - Suicidal Assessment Feels Threatened In Home Enviroment: No Family/Social History - Physician Review Nursing Documentation Reviewed: Yes Family/Social History: Unknown Family HX Smoking Status: Former Smoker Hx Alcohol Use: No Hx Substance Use: No Hx Substance Use Treatment: No Allergies/Home Meds Allergies/Adverse Reactions: Allergies cefuroxime axetil [From Ceftin] Allergy (Verified 12/06/17 16:20) DIARRHEA gluten Allergy (Verified 12/06/17 16:20) ANAPHYLAXIS Home Medications: Home Meds Medication Instructions Recorded Confirmed Ranitidine HCl [Zantac] 150 mg PO DAILY 10/04/17 12/06/17 amLODIPine [Norvasc] 2.5 mg PO BID 10/04/17 12/06/17 Review of Systems - Physician Review All systems were reviewed & negative as marked: Yes - Review of Systems Constitutional: Normal Eyes: Normal ENT: Normal Respiratory: Normal Cardiovascular: Normal Gastrointestinal: Other (Rectal pain) Genitourinary Female: Normal Musculoskeletal: Normal Skin: Normal Neurological: Normal Endocrine: Normal Hemo/Lymphatic: Normal Psychiatric: Normal Physical Exam Vital Signs Reviewed: Yes Vital Signs Temp Pulse Resp Pulse Ox 12/06/17 16:45 98.4 F 73 18 100 Temperature: Afebrile Blood Pressure: Normal Pulse: Regular Respiratory Rate: Normal Appearance: Positive for: Well-Appearing, Non-Toxic, Comfortable Pain Distress: None Mental Status: Positive for: Alert and Oriented X 3 - Systems Exam Head: Present: Atraumatic, Normocephalic Pupils: Present: PERRL Extroacular Muscles: Present: EOMI Conjunctiva: Present: Normal Mouth: Present: Moist Mucous Membranes Neck: Present: Normal Range of Motion Respiratory/Chest: Present: Clear to Auscultation, Good Air Exchange. No: Respiratory Distress, Accessory Muscle Use Cardiovascular: Present: Regular Rate and Rhythm, Normal S1, S2. No: Murmurs Abdomen: No: Tenderness, Distention, Peritoneal Signs Rectal: Present: Rectal Tenderness, Other (Tender prolapsed rectum noted) Back: Present: Normal Inspection Upper Extremity: Present: Normal Inspection. No: Cyanosis, Edema Lower Extremity: Present: Normal Inspection. No: Edema Neurological: Present: GCS=15, CN II-XII Intact, Speech Normal Skin: Present: Warm, Dry, Normal Color. No: Rashes Psychiatric: Present: Alert, Oriented x 3, Normal Insight, Normal Concentration Medical Decision Making ED Course and Treatment: 12/07/17 23:37 Pt presented to ED for stated history. She was physically in pain and meds was given Prolapse rectum was noted and she was seen in ED by residential tech Ary. Pt also presented with a script from Dr. Lopez for admission. PT was admitted for reduction of her prolapse under anesthesia Labs was ordered and pt was admitted to Dr. Lopez service. PT is DNR/DNI - RAD Interpretation Radiology Orders: 12/06/17 16:55 CHEST PORTABLE [RAD] Stat - Medication Orders Current Medication Orders: Discontinued Medications Morphine Sulfate (Morphine) 2 mg IVP STAT STA Stop: 12/06/17 16:54 Disposition/Present on Arrival - Present on Arrival Any Indicators Present on Arrival: No History of DVT/PE: No History of Uncontrolled Diabetes: No Urinary Catheter: No History of Decub. Ulcer: No History Surgical Site Infection Following: None - Disposition Have Diagnosis and Disposition been Completed?: Yes Diagnosis: Rectal prolapse Disposition: HOSPITALIZED Disposition Time: 17:10 Patient Plan: Admission Patient Problems: Current Active Problems Problem Status Onset Rectal prolapse Acute Condition: STABLE
--- NOTE | 2017-12-06 17:17 | CP.PCM.HP ---
History of Present Illness - History of Present Illness History of Present Illness: General Surgery H&P for Dr. Lopez This is a 77F with a PMH of CVA, OA, COPD, HTN, GERD, and depression who is well known to the service. She has been admitted previously due to prolapsed rectum her last admission was 11/18/17 at which time she underwent a PPH. Since then she has continued to prolapse and her daughter has successfully manually reduced it however, 2 days ago her rectum prolapsed again and she was unable to reduce it. Today she went to Dr. Lopez office he attemped manual reduction and was unsuccessful as the patient would not tolerate it due to the pain. She denies any chest pain or SOB, nause vomiting fever or chills. PMH: CVA, OA, COPD, HTN, GERD, PSH: appendectomy, PPH All: cefuroxime, gluten Fam Hx: non-contributory Soc Hx: denies any prior tobacco, alcohol, or drug use. Currently lives at [facility] and daughter provides good support system. Present on Admission - Present on Admission Any Indicators Present on Admission: No Review of Systems - Review of Systems Review of Systems: 12 point review of symptoms conducted and negative aside from prolapsing of rectum with bright red bloody discharge. Past Patient History - Infectious Disease Hx of Infectious Diseases: None - Tetanus Immunizations Tetanus Immunization: Unknown - Past Social History Smoking Status: Former Smoker - CARDIAC Hx Cardiac Disorders: No - PULMONARY Hx Respiratory Disorders: Yes Hx Chronic Obstructive Pulmonary Disease (COPD): Yes Hx Emphysema: Yes - NEUROLOGICAL Hx Neurological Disorder: No - HEENT Hx HEENT Problems: Yes Hx Cataracts: Yes - RENAL Hx Chronic Kidney Disease: No - ENDOCRINE/METABOLIC Hx Endocrine Disorders: No - HEMATOLOGICAL/ONCOLOGICAL Hx Blood Disorders: No - INTEGUMENTARY Hx Dermatological Problems: Yes Hx Psoriasis: Yes - MUSCULOSKELETAL/RHEUMATOLOGICAL Hx Musculoskeletal Disorders: Yes - GASTROINTESTINAL Hx Gastrointestinal Disorders: Yes Hx Crohn's Disease: Yes Hx Gastroesophageal Reflux: Yes Other/Comment: Rectal prolapse - GENITOURINARY/GYNECOLOGICAL Hx Genitourinary Disorders: Yes Hx Urinary Tract Infection: Yes - PSYCHIATRIC Hx Psychophysiologic Disorder: No Hx Substance Use: No - SURGICAL HISTORY Hx Appendectomy: Yes Other/Comment: skin ca removal - ANESTHESIA Hx Anesthesia Reactions: No Meds Allergies/Adverse Reactions: Allergies Allergy/AdvReac Type Severity Reaction Status Date / Time cefuroxime axetil Allergy DIARRHEA Verified 10/29/18 16:20 [From Ceftin] gluten Allergy ANAPHYLAXIS Verified 12/06/17 16:20 Physical Exam - Constitutional Appears: Non-toxic, No Acute Distress - Head Exam Head Exam: ATRAUMATIC, NORMOCEPHALIC - Eye Exam Eye Exam: EOMI - ENT Exam ENT Exam: Mucous Membranes Moist - Respiratory Exam Respiratory Exam: NORMAL BREATHING PATTERN - Cardiovascular Exam Cardiovascular Exam: +S1, +S2 - GI/Abdominal Exam GI & Abdominal Exam: Soft. absent: Distended, Guarding, Rigid, Tenderness - Rectal Exam Additional comments: Rectal prolapse with beefy red rectum, with bloody mucus discharge. - Neurological Exam Neurological exam: Alert, Oriented x3 - Psychiatric Exam Psychiatric exam: Normal Affect, Normal Mood - Skin Skin Exam: Dry, Intact Results - Vital Signs Recent Vital Signs: Last Vital Signs Temp 98.4 F 12/06/17 16:45 Pulse 73 12/06/17 16:45 Resp 18 12/06/17 16:45 BP 146/85 12/06/17 17:08 Pulse Ox 100 12/06/17 16:45 Assessment & Plan - Assessment and Plan (Free Text) Assessment: 77F with rectal prolapse Will attempt reduction post sugar treatment NPO past midnight Flagyl 1/2 bottle mag citrate this evening IVF D/W Dr. John Renae PGY3
--- NOTE | 2017-12-06 17:26 | RAD ---
Date of service: 12/06/2017 HISTORY: admission COMPARISON: Chest radiograph dated 11/18/2017. FINDINGS: LUNGS: No active pulmonary disease. PLEURA: No significant pleural effusion identified, no pneumothorax apparent. CARDIOVASCULAR: Subcutaneous cardiac device. Aortic atherosclerotic calcifications. Cardiomediastinal silhouette within normal limits. OSSEOUS STRUCTURES: Scoliosis. Unchanged. VISUALIZED UPPER ABDOMEN: Normal. OTHER FINDINGS: None. IMPRESSION: No active disease.
[2017-12-06 17:49] LABS: BASO # 0.03 K/mm3 (0.0-2.0); BASO % 0.6 % (0.0-3.0); EOS # 0.1 (0.0-0.7); EOS % 1.4 % (1.5-5.0); GRAN # 3.05 (1.4-6.5); GRAN % 63.1 % (50.0-68.0); HEMOGLOBIN 12.5 g/dL (12.0-16.0); LYMPH # 1.2 (1.2-3.4); LYMPH % 24.2 % (22.0-35.0); MEAN CELL VOLUME 89.5 fl (80.0-105.0); MEAN CORPUSCULAR HEMOGLOBIN 29.9 pg (25.0-35.0); MEAN CORPUSCULAR HGB CONC 33.4 g/dl (31.0-37.0); MEAN PLATELET VOLUME 10.1 fl (7.0-11.0); MONO # 0.5 (0.1-0.6); MONO % 10.7 % (1.0-6.0); RBC 4.18 10^6/uL (3.5-6.1); RED CELL DISTRIBUTION WIDTH 13.9 % (11.5-14.5); WHITE BLOOD COUNT 4.8 10^3/uL (4.5-11.0)
[2017-12-06 17:57] LABS: INR 1.06; PARTIAL THROMBOPLASTIN TIME 27.4 Seconds (25.1-36.5); PROTHROMBIN TIME 12.1 SECONDS (9.4-12.5)
[2017-12-06 18:00] LABS: ALB/GLOB RATIO 1.4 (1.1-1.8); ALBUMIN 4.2 g/dL (3.0-4.8); ALT/SGPT 91 U/L (7-56); AST/SGOT 59 U/L (14-36); BLOOD UREA NITROGEN 11 mg/dL (7-21); CALCIUM 9.7 mg/dL (8.4-10.5); GFR NON-AFRICAN AMERICAN > 60
[2017-12-06] MEDS: Sodium Chloride 0.9% 1,000 ML IV SCH (18:59)
[2017-12-06] MEDS ORDERED: Magnesium Citrate Oral SOL (300 ml) PO ONE (19:58)
--- NOTE | 2017-12-06 22:07 | CARD ---
APPROVED REPORT Date of service: 12/06/2017 EKG Measurement Heart [id number] <Conclusion> Normal sinus rhythm Normal Electrocardiogram
[2017-12-06] MEDS: metroNIDAZOLE IV 500 mg/100 ml 500 MG/100 ML BAG IVPB SCH (23:11)
[2017-12-06] MEDS: HYDROmorphone 0.5 mg/0.5 ml ISec IVP PRN (23:12)
[2017-12-07] MEDS: HYDROmorphone 0.5 mg/0.5 ml ISec IVP PRN ×2 (06:16→18:12)
[2017-12-07] MEDS: metroNIDAZOLE IV 500 mg/100 ml 500 MG/100 ML BAG IVPB SCH ×3 (06:17→21:51)
--- NOTE | 2017-12-07 06:36 | CON ---
DATE: <12/06/2017> HISTORY OF PRESENT ILLNESS: The patient is 77 years old known to me from multiple previous admissions. She was seen by Dr. Lopez in his office who attempted to reduce her rectal prolapse, but he was unsuccessful since the patient could not tolerate the reduction of prolapse. According to family, she has rectal prolapse for the last two days. Daughter was able to do that initially, but later on, it was hard to reduce, so Dr. Lopez referred her to Emergency Room for further evaluation. There is some rectal discomfort. Also has intermittent constipation. PAST MEDICAL HISTORY: Significant for: 1. History of COPD. 2. Generalized osteoarthritis. 3. Gastritis. 4. Hypertension. 5. Hyperlipidemia. SURGICAL HISTORY: Significant for appendectomy. The patient had hemorrhoidectomy and had stapled hemorrhoidectomy and had insertion of Thiersch anal ring placed. ALLERGIES: SHE IS ALLERGIC TO CEFUROXIME AND GLUTEN. MEDICATION AT HOME: She is on acetaminophen, amlodipine 2.5 b.i.d., Zantac 150 daily, MiraLax 17 g twice a day and Lipitor 10 mg daily. SOCIAL HISTORY: She used to be a smoker in the past, she used to smoke up to two-packs per day for the last 25 years, but recently quit a few years ago. Socially drinks. PHYSICAL EXAMINATION: GENERAL: The patient is awake, alert, oriented, anxious. VITAL SIGNS: She is afebrile, pulse 73, respirations 18, blood pressure 146/85. LUNGS: Bilateral fair airflow. No rhonchi or crackle. HEART: S1 and S2 audible. ABDOMEN: Soft and nontender. RECTAL: She has rectal prolapse. NEUROLOGIC: She is awake and alert, able to communicate. LABORATORY DATA: WBC 4.8, hemoglobin 12.5, hematocrit 37.4, platelet 271. PT 12.1 and INR 1.06. Chemistry: Sodium 129, potassium 4.9, chloride 93, CO2 of 26, BUN 11, creatinine 0.7. AST 59, ALT 91, alk phos is 212. ASSESSMENT: 1. Recurrent rectal prolapse. 2. Hypertension. 3. Hyperlipidemia. 4. Recent stroke. PLAN: The patient has been started on metronidazole. She is on analgesic. Has been on IV fluids. Possible plan for OR tomorrow for reduction under anesthesia and I spoke to Dr. Lopez, he will discuss other option of possible colostomy and repair of prolapse. Froy Flores MD
[2017-12-07] MEDS: Sodium Chloride 0.9% 1,000 ML IV SCH ×2 (07:04→18:14)
[2017-12-07 07:37] LABS: ALB/GLOB RATIO 1.3 (1.1-1.8); ALBUMIN 3.2 g/dL (3.0-4.8); ALT/SGPT 70 U/L (7-56); AST/SGOT 38 U/L (14-36); BLOOD UREA NITROGEN 9 mg/dL (7-21); CALCIUM 8.7 mg/dL (8.4-10.5); GFR NON-AFRICAN AMERICAN > 60
[2017-12-07] MEDS ORDERED: Succinylcholine 200 mg/10 ml Inj IV ONE (11:58)
[2017-12-07] MEDS ORDERED: Etomidate 20 mg/10ml Inj IV ONE (11:58)
[2017-12-07] MEDS ORDERED: Liquid Adhesive TOP ONE (12:46)
[2017-12-07] MEDS ORDERED: Absorbable Gelatin Sponge Size 100 ONE (12:55)
[2017-12-07] MEDS ORDERED: Bacitracin Ointment 30 GM TUBE ONE (12:56)
[2017-12-07] MEDS ORDERED: ePHEDrine 50 mg/ml Inj ONE (13:00)
[2017-12-07] MEDS ORDERED: Bupivacaine 0.5% 50 ML IJ ONE (13:07)
[2017-12-07] MEDS ORDERED: HYDROmorphone 0.5 mg/0.5 ml ISec IVP PRN (13:28)
--- NOTE | 2017-12-07 13:29 | PCM.SURG1 ---
Surgeon's Initial Post Op Note - Surgeon's Notes Surgeon: Dr. Lopez Order Runner: Dr. Higginbotham PGY3 Type of Anesthesia: General Endo Pre-Operative Diagnosis: rectal prolapse Operative Findings: see operative report Post-Operative Diagnosis: see operative report Operation Performed: transverse colostomy Specimen/Specimens Removed: none Estimated Blood Loss: EBL {In ML}: 5 Blood Products Given: N/A Drains Used: No Drains Date of Surgery/Procedure: 12/07/17 Time of Surgery/Procedure: 12:30
[2017-12-07] MEDS ORDERED: Lactated Ringer's 1,000 ML IV SCH (13:30)
[2017-12-07] MEDS ORDERED: Clindamycin 600mg/50ml D5W 600 MG/50 ML VIAL IVPB SCH (13:45)
[2017-12-07] MEDS ORDERED: HYDROmorphone 0.5 mg/0.5 ml ISec ONE (14:12)
[2017-12-07] MEDS ORDERED: HYDROmorphone 0.5 mg/0.5 ml ISec IVP ONE (14:40)
[2017-12-07] MEDS: Clindamycin 600mg/50ml D5W 600 MG/50 ML VIAL IVPB SCH (21:50)
--- NOTE | 2017-12-07 22:41 | PN ---
DATE: 12/07/2017 SUBJECTIVE: The patient is 77 years old, who came in with rectal prolapse that was irreducible, so the patient was taken to OR this morning by Dr. Lopez and the patient had transverse colostomy done and rectal prolapse repair done. PHYSICAL EXAMINATION: GENERAL: On examination, the patient seemed to be sleepy, but arousable. VITAL SIGNS: She is afebrile, pulse 85, respirations 20, blood pressure 138/83. LUNGS: Bilateral fair airflow. No rhonchi or crackle. HEART: S1 and S2 audible. ABDOMEN: Soft. Palpable discomfort. Colostomy in place. LABORATORY EXAM: Chemistry: Sodium 136, potassium 3.9, chloride 102, CO2 of 26, BUN 9, creatinine 0.5, blood sugar of 76, AST 38, ALT 70, alk phos is 178. ASSESSMENT: 1. Status post rectal prolapse. 2. Status post transverse colostomy and prolapse repair. 3. History of hypertension. 4. History of embolic stroke. 5. Status post loop recorder placement. PLAN: Currently, the patient is on clindamycin. She is getting Dilaudid as needed. She is on metronidazole. She is on DVT prophylaxis. Her anticoagulant is on hold. We will follow up her CBC and CMP in the a.m. Froy Flores MD
[2017-12-08] MEDS: HYDROmorphone 0.5 mg/0.5 ml ISec IVP PRN (02:33)
[2017-12-08] MEDS: Clindamycin 600mg/50ml D5W 600 MG/50 ML VIAL IVPB SCH (03:48)
[2017-12-08] MEDS: metroNIDAZOLE IV 500 mg/100 ml 500 MG/100 ML BAG IVPB SCH ×3 (06:04→22:10)
[2017-12-08] MEDS: Sodium Chloride 0.9% 1,000 ML IV SCH ×2 (06:05→09:53)
[2017-12-08 07:15] LABS: BASO # 0.02 K/mm3 (0.0-2.0); BASO % 0.3 % (0.0-3.0); EOS % 0.4 % (1.5-5.0); GRAN # 6.43 (1.4-6.5); GRAN % 80.3 % (50.0-68.0); HEMOGLOBIN 11.3 g/dL (12.0-16.0); LYMPH # 0.8 (1.2-3.4); LYMPH % 9.9 % (22.0-35.0); MEAN CELL VOLUME 91.5 fl (80.0-105.0); MEAN CORPUSCULAR HGB CONC 31.7 g/dl (31.0-37.0); MEAN PLATELET VOLUME 10.2 fl (7.0-11.0); MONO # 0.7 (0.1-0.6); MONO % 9.1 % (1.0-6.0); RBC 3.89 10^6/uL (3.5-6.1); RED CELL DISTRIBUTION WIDTH 14.3 % (11.5-14.5)
[2017-12-08 07:31] LABS: ALB/GLOB RATIO 1.2 (1.1-1.8); ALT/SGPT 61 U/L (7-56); AST/SGOT 36 U/L (14-36); BLOOD UREA NITROGEN 6 mg/dL (7-21); CALCIUM 8.1 mg/dL (8.4-10.5); GFR NON-AFRICAN AMERICAN > 60
[2017-12-08] MEDS: Enoxaparin 30 mg Syringe SC SCH (09:51)
--- NOTE | 2017-12-08 15:19 | CP.PCM.PN ---
Subjective - Date & Time of Evaluation Date of Evaluation: 12/08/17 Time of Evaluation: 10:45 - Subjective Subjective: Patient seen and examined. No acute events over night. Patient is tolerating liquid diet. Has liquid output into ostomy bag. 1.7L/24hr UOP. Objective - Vital Signs/Intake and Output Vital Signs (last 24 hours): Temp Pulse Resp BP Pulse Ox 97.6 F 74 18 147/83 95 12/08/17 12:00 12/08/17 12:00 12/08/17 12:00 12/08/17 12:00 12/08/17 06:00 Intake and Output: 12/08/17 12/08/17 06:59 18:59 Intake Total 1980 Output Total 1875 Balance 105 - Medications Medications: Current Medications Acetaminophen (Tylenol 325mg Tab) 650 mg PO Q6H PRN PRN Reason: Fever >100.4 F Amlodipine Besylate (Norvasc) 2.5 mg PO BID [facility] Last Admin: 12/08/17 09:51 Dose: 2.5 mg Atorvastatin Calcium (Lipitor) 10 mg PO DIN [facility] Last Admin: 12/07/17 18:12 Dose: 10 mg Enoxaparin Sodium (Lovenox) 30 mg SC DAILY [facility]; Protocol Last Admin: 12/08/17 09:51 Dose: 30 mg Famotidine (Pepcid) 20 mg PO DAILY [facility] Last Admin: 12/08/17 09:51 Dose: 20 mg Hydromorphone HCl (Dilaudid) 0.5 mg IVP Q4H PRN PRN Reason: Pain, moderate (4-7) Last Admin: 12/08/17 02:33 Dose: 0.5 mg Metronidazole (Flagyl) 500 mg in 100 mls @ 100 mls/hr IVPB Q8 [facility]; Protocol Last Admin: 12/08/17 14:27 Dose: 100 mls/hr Sodium Chloride (Sodium Chloride 0.9%) 1,000 mls @ 100 mls/hr IV .Q10H [facility] Last Admin: 12/08/17 09:53 Dose: 100 mls/hr Ketorolac Tromethamine (Toradol) 30 mg IVP ONCE PRN PRN Reason: Pain, moderate (4-7) - Labs Labs: 12/08/17 06:15 12/08/17 06:15 PT 12.1 SECONDS (9.4-12.5) 12/06/17 17:43 INR 1.06 12/06/17 17:43 APTT 27.4 Seconds (25.1-36.5) 12/06/17 17:43 - Constitutional Appears: No Acute Distress - Head Exam Head Exam: NORMOCEPHALIC - Eye Exam Eye Exam: EOMI, Normal appearance - ENT Exam ENT Exam: Mucous Membranes Moist - Respiratory Exam Respiratory Exam: NORMAL BREATHING PATTERN - Cardiovascular Exam Cardiovascular Exam: +S1, +S2 - GI/Abdominal Exam GI & Abdominal Exam: Soft - Neurological Exam Neurological Exam: Alert, Awake, Oriented x3 - Psychiatric Exam Psychiatric exam: Normal Mood - Skin Skin Exam: Dry, Intact, Warm Assessment and Plan - Assessment and Plan (Free Text) Assessment: 77F w/ rectal prolapsed- reduced; s/p transverse colostomy POD1 Plan: -Adv to regular diet -I&O -DVT ppx -Monitor bowel function -Further recs per Dr. John Cobos PGY3
--- NOTE | 2017-12-08 16:57 | PN ---
DATE: 12/08/2017 SUBJECTIVE: The patient is 77 years old, seen and examined, seemed to be somewhat confused. According to nurse, she did eat. PHYSICAL EXAMINATION: VITAL SIGNS: She is afebrile, pulse 77, respirations 19, blood pressure 120/71. LUNGS: Bilateral fair airflow. No rhonchi or crackle. HEART: S1 and S2 audible. ABDOMEN: Soft. Colostomy in place. Has hemorrhagic liquid fluid in the colostomy. She has Gibson in. According to Dr. Jim Lopez, patient had suprapubic fullness. They tried pass 16-[place] Gibson catheter, but unable to pass the 14-[place]agu[place]. NEUROLOGIC: She is somewhat confused, although she is awake and alert, but disoriented. LABORATORY EXAM: WBC 8, hemoglobin 11.3, hematocrit 35.6, and platelets 255. Chemistry: Sodium 133, potassium 3.7, chloride 102, CO2 of 27. BUN 6, creatinine 0.6. Blood sugar of 119. LFTs are within normal limits. ALT 61, alk phos 151. ASSESSMENT: 1. Status post rectal prolapse repair and transverse colostomy. 2. Postoperative confusion probably secondary to narcotics and anesthetics. 3. Urethral stricture. 4. History of embolic stroke. 5. Chronic anemia. PLAN: Currently, the patient is on metronidazole. She is on Lipitor. She is on DVT prophylaxis. We will continue on IV fluids. I will request Dr. Lee for evaluation if she need dilatation of her urethral stricture where she should be watched for now. The patient seems to be hemodynamically stable. We may discontinue telemetry. Froy Flores MD
[2017-12-08] MEDS ORDERED: Sodium Chloride 0.9% 1,000 ML IV SCH (17:58)
[2017-12-09] MEDS: metroNIDAZOLE IV 500 mg/100 ml 500 MG/100 ML BAG IVPB SCH ×3 (05:45→21:51)
--- NOTE | 2017-12-09 08:19 | CP.PCM.PN ---
Subjective - Date & Time of Evaluation Date of Evaluation: 12/09/17 Time of Evaluation: 08:15 - Subjective Subjective: General Surgery Progress Note for Dr. Lopez 77F, seen and evaluated at bedside this morning. No acute events overnight. Patient tolerating diet. No bowel function of flatus. Grimaldo output of 2049 overnight. Denies f/c, n/v/d, SOB, or CP. Objective - Vital Signs/Intake and Output Vital Signs (last 24 hours): Temp Pulse Resp BP Pulse Ox 98 F 77 18 151/79 H 96 12/09/17 06:00 12/09/17 06:00 12/09/17 06:00 12/09/17 06:00 12/09/17 06:00 Intake and Output: 12/09/17 12/09/17 06:59 18:59 Intake Total 940 Output Total 1200 Balance -260 - Medications Medications: Current Medications Acetaminophen (Tylenol 325mg Tab) 650 mg PO Q6H PRN PRN Reason: Fever >100.4 F Amlodipine Besylate (Norvasc) 2.5 mg PO BID [facility] Last Admin: 12/08/17 18:23 Dose: 2.5 mg Atorvastatin Calcium (Lipitor) 10 mg PO DIN [facility] Last Admin: 12/08/17 18:23 Dose: 10 mg Enoxaparin Sodium (Lovenox) 30 mg SC DAILY [facility]; Protocol Last Admin: 12/08/17 09:51 Dose: 30 mg Famotidine (Pepcid) 20 mg PO DAILY [facility] Last Admin: 12/08/17 09:51 Dose: 20 mg Hydromorphone HCl (Dilaudid) 0.5 mg IVP Q4H PRN PRN Reason: Pain, moderate (4-7) Last Admin: 12/08/17 02:33 Dose: 0.5 mg Metronidazole (Flagyl) 500 mg in 100 mls @ 100 mls/hr IVPB Q8 [facility]; Protocol Last Admin: 12/09/17 05:45 Dose: 100 mls/hr Sodium Chloride (Sodium Chloride 0.9%) 1,000 mls @ 50 mls/hr IV .Q20H [facility] Last Admin: 12/08/17 18:24 Dose: 50 mls/hr Ketorolac Tromethamine (Toradol) 30 mg IVP ONCE PRN PRN Reason: Pain, moderate (4-7) - Labs Labs: 12/08/17 06:15 12/08/17 06:15 PT 12.1 SECONDS (9.4-12.5) 12/06/17 17:43 INR 1.06 12/06/17 17:43 APTT 27.4 Seconds (25.1-36.5) 12/06/17 17:43 - Constitutional Appears: Well, Non-toxic, No Acute Distress - Head Exam Head Exam: ATRAUMATIC, NORMAL INSPECTION, NORMOCEPHALIC - Respiratory Exam Respiratory Exam: Clear to Ausculation Bilateral, NORMAL BREATHING PATTERN - Cardiovascular Exam Cardiovascular Exam: REGULAR RHYTHM - GI/Abdominal Exam GI & Abdominal Exam: Soft, Tenderness, Normal Bowel Sounds. absent: Distended - Rectal Exam Rectal Exam: NORMAL INSPECTION - Neurological Exam Neurological Exam: Alert, Awake - Psychiatric Exam Psychiatric exam: Normal Affect, Normal Mood Assessment and Plan - Assessment and Plan (Free Text) Assessment: 77F w/ rectal prolapsed- reduced; s/p transverse colostomy POD2 Plan: Discontinue grimaldo Out of Bed to chair Encourage IS use Continue to monitor bowel function Cleared for discharge from a surgical standpoint Xiang Hameed PGY1
[2017-12-09] MEDS: Enoxaparin 30 mg Syringe SC SCH (10:26)
--- NOTE | 2017-12-09 10:31 | CP.PCM.PCO ---
Physician Communication Note - Physician Communication Note Physician Communication Note: Await stoma function/Remove grimaldo trial
--- NOTE | 2017-12-09 21:29 | PN ---
DATE: 12/09/2017 SUBJECTIVE: The patient is 77 years old, seen and examined, somewhat confused. Not in any distress. Eating and tolerating. PHYSICAL EXAMINATION: VITAL SIGNS: She is afebrile, pulse 91, respirations 20, blood pressure 132/83. LUNGS: Bilateral fair airflow. No rhonchi or crackle. HEART: S1 and S2 audible. ABDOMEN: Soft. Colostomy is in place and functional. ASSESSMENT: 1. Status post rectal prolapse. 2. Status post transverse colostomy. 3. Hypertension. 4. History of embolic stroke. PLAN: Currently, the patient is on metronidazole. She is getting statins. She is on amlodipine. I will request for TCU evaluation for colostomy training and rehab that has been advanced. We will follow up the patient in the a.m. We will follow up her electrolyte in the a.m. Froy Flores MD
[2017-12-10] MEDS: metroNIDAZOLE IV 500 mg/100 ml 500 MG/100 ML BAG IVPB SCH (06:56)
[2017-12-10 07:21] LABS: BASO # 0.02 K/mm3 (0.0-2.0); BASO % 0.3 % (0.0-3.0); EOS # 0.2 (0.0-0.7); EOS % 2.6 % (1.5-5.0); GRAN # 4.01 (1.4-6.5); GRAN % 68.3 % (50.0-68.0); HEMOGLOBIN 12.3 g/dL (12.0-16.0); LYMPH % 17.7 % (22.0-35.0); MEAN CELL VOLUME 89.7 fl (80.0-105.0); MEAN CORPUSCULAR HEMOGLOBIN 29.4 pg (25.0-35.0); MEAN CORPUSCULAR HGB CONC 32.7 g/dl (31.0-37.0); MONO # 0.7 (0.1-0.6); MONO % 11.1 % (1.0-6.0); RBC 4.19 10^6/uL (3.5-6.1); RED CELL DISTRIBUTION WIDTH 14.2 % (11.5-14.5); WHITE BLOOD COUNT 5.9 10^3/uL (4.5-11.0)
[2017-12-10 08:03] LABS: ALB/GLOB RATIO 1.1 (1.1-1.8); ALBUMIN 3.2 g/dL (3.0-4.8); ALT/SGPT 45 U/L (7-56); AST/SGOT 30 U/L (14-36); BLOOD UREA NITROGEN 9 mg/dL (7-21); CALCIUM 8.6 mg/dL (8.4-10.5); GFR NON-AFRICAN AMERICAN > 60
--- NOTE | 2017-12-10 08:24 | CP.PCM.PN ---
Subjective - Date & Time of Evaluation Date of Evaluation: 12/10/17 Time of Evaluation: 08:21 - Subjective Subjective: Temi Hardy, PGY-1, Surgery Progress note for Dr. Lopez Patient seen and examined at bedside. Patient had grimaldo catheter removed and has been urinating adequately but has had hiren urine. Patient has only had serosanguinous fluid in stoma. Patient is currently AAOx2 and denies any fever, nausea, vomiting, chest pain, or shortness of breath. Objective - Vital Signs/Intake and Output Vital Signs (last 24 hours): Temp Pulse Resp BP Pulse Ox 97.6 F 84 18 143/86 94 L 12/09/17 23:22 12/09/17 23:22 12/09/17 23:22 12/09/17 23:22 12/09/17 23:22 Intake and Output: 12/10/17 12/10/17 06:59 18:59 Intake Total 120 Output Total 600 Balance -480 - Medications Medications: Current Medications Acetaminophen (Tylenol 325mg Tab) 650 mg PO Q6H PRN PRN Reason: Fever >100.4 F Amlodipine Besylate (Norvasc) 2.5 mg PO BID [facility] Last Admin: 12/09/17 17:37 Dose: 2.5 mg Atorvastatin Calcium (Lipitor) 10 mg PO DIN [facility] Last Admin: 12/09/17 17:37 Dose: 10 mg Enoxaparin Sodium (Lovenox) 30 mg SC DAILY [facility]; Protocol Last Admin: 12/09/17 10:26 Dose: 30 mg Famotidine (Pepcid) 20 mg PO DAILY [facility] Last Admin: 12/09/17 10:26 Dose: 20 mg Metronidazole (Flagyl) 500 mg in 100 mls @ 100 mls/hr IVPB Q8 [facility]; Protocol Last Admin: 12/10/17 06:56 Dose: 100 mls/hr Ketorolac Tromethamine (Toradol) 30 mg IVP ONCE PRN PRN Reason: Pain, moderate (4-7) - Labs Labs: 12/10/17 06:20 12/10/17 06:20 PT 12.1 SECONDS (9.4-12.5) 12/06/17 17:43 INR 1.06 12/06/17 17:43 APTT 27.4 Seconds (25.1-36.5) 12/06/17 17:43 - Constitutional Appears: Well, Non-toxic, No Acute Distress - Head Exam Head Exam: ATRAUMATIC, NORMAL INSPECTION, NORMOCEPHALIC - Eye Exam Eye Exam: EOMI Pupil Exam: PERRL - ENT Exam ENT Exam: Mucous Membranes Moist - Respiratory Exam Respiratory Exam: Clear to Ausculation Bilateral, NORMAL BREATHING PATTERN - Cardiovascular Exam Cardiovascular Exam: REGULAR RHYTHM - GI/Abdominal Exam GI & Abdominal Exam: Soft, Normal Bowel Sounds. absent: Tenderness Additional comments: stoma intact and patent - Rectal Exam Additional comments: no rectal prolapse at this time - Extremities Exam Extremities Exam: Full ROM - Neurological Exam Neurological Exam: Alert, Awake, CN II-XII Intact. absent: Oriented x3 (AAOx2) Assessment and Plan - Assessment and Plan (Free Text) Assessment: 77 year old female with past medical history of CVA, OA, COPD, HTN, GERD presents with rectal prolapse and is stats pos day 3 of loop colostomy surgery. Plan: Continue to monitor stoma output. Patient still has not had stool output. Consider enema if continues to have no stool output. OOB Encourage incentive spirometry use. Patient voiding adequately. Continue pain control with toradol and tylenol. DVT prophylaxis with lovenox and GI prophylaxis with pepcid. Replete electrolytes as needed. Will discuss plan with Dr. Lopez.
[2017-12-10] MEDS: Enoxaparin 30 mg Syringe SC SCH (10:12)
[2017-12-10] MEDS: Docusate-Senna 50 mg-8.6 mg Tab PO SCH ×2 (10:12→17:22)
[2017-12-10] MEDS: POLYETHYLENE GLYCOL 3350 17 GM/Dose PACKET PO SCH ×2 (10:12→17:24)
--- NOTE | 2017-12-10 11:36 | CP.PCM.PCO ---
Physician Communication Note - Physician Communication Note Physician Communication Note: Family and Pt need Colostomy video/D/CStAnns OK
[2017-12-10] MEDS ORDERED: Potassium Chloride 20 mEq ER Tab PO ONE (12:11)
--- NOTE | 2017-12-10 19:55 | PN ---
DATE: 12/10/2017 SUBJECTIVE: The patient is 77-year-old, seen and examined, sitting in chair, somewhat confused. She is not aware of what happened to her. She states, "My belly is getting bigger and pointing towards the colostomy bag." Otherwise, she is eating and tolerating. PHYSICAL EXAMINATION: VITAL SIGNS: She is afebrile, pulse 95, respirations 18, blood pressure 146/94. LUNGS: Bilateral fair airflow. No rhonchi or crackle. HEART: S1 and S2 audible. ABDOMEN: Soft, nontender. No rebound. No guarding. NEUROLOGICAL: The patient is awake, alert, oriented, able to communicate. LABORATORY DATA: WBC 5.9, hemoglobin 12.3, hematocrit 37.6, and platelets 277. Chemistries: Sodium 135, potassium 3.4, chloride 103, CO2 26, BUN 9, creatinine 0.6. Blood sugar 124. LFTs have improved. ASSESSMENT: 1. Rectal prolapse, status post repair. 2. Transverse colostomy. 3. Hypertension. 4. History of embolic stroke. 5. Hypokalemia. PLAN: The patient is currently on atorvastatin. She is on laxatives. We will continue her on current medication and plan is to discharge her to [facility] for colostomy care education and physical therapy. Froy Flores MD
--- NOTE | 2017-12-11 07:43 | CP.PCM.PN ---
Subjective - Date & Time of Evaluation Date of Evaluation: 12/11/17 Time of Evaluation: 07:38 - Subjective Subjective: General Surgery Progress Note for Dr. Lopez 77F, seen and evaluated at bedside this morning. No acute events overnight. Patient has no complaints this morning. Multiple bowel movements from ostomy site. Denies f/c, n/v/d, SOB, CP, or urinary symptoms. Objective - Vital Signs/Intake and Output Vital Signs (last 24 hours): Temp Pulse Resp BP Pulse Ox 98 F 73 18 141/87 95 12/10/17 22:00 12/10/17 22:00 12/10/17 22:00 12/10/17 22:00 12/10/17 22:00 - Medications Medications: Current Medications Acetaminophen (Tylenol 325mg Tab) 650 mg PO Q6H PRN PRN Reason: Fever >100.4 F Amlodipine Besylate (Norvasc) 2.5 mg PO BID [facility] Last Admin: 12/10/17 17:23 Dose: 2.5 mg Atorvastatin Calcium (Lipitor) 10 mg PO DIN [facility] Last Admin: 12/10/17 17:22 Dose: 10 mg Enoxaparin Sodium (Lovenox) 30 mg SC DAILY [facility]; Protocol Last Admin: 12/10/17 10:12 Dose: 30 mg Famotidine (Pepcid) 20 mg PO DAILY [facility] Last Admin: 12/10/17 10:12 Dose: 20 mg Ketorolac Tromethamine (Toradol) 30 mg IVP ONCE PRN PRN Reason: Pain, moderate (4-7) Polyethylene Glycol (Miralax) 17 gm PO BID [facility] Last Admin: 12/10/17 17:24 Dose: 17 gm Senna/Docusate Sodium (Senokot S 50 Mg-8.6 Mg) 1 tab PO BID [facility] Last Admin: 12/10/17 17:22 Dose: 1 tab Tramadol HCl (Ultram) 50 mg PO TID PRN PRN Reason: Pain, moderate (4-7) Last Admin: 12/10/17 14:45 Dose: 50 mg - Labs Labs: 12/10/17 06:20 12/10/17 06:20 PT 12.1 SECONDS (9.4-12.5) 12/06/17 17:43 INR 1.06 12/06/17 17:43 APTT 27.4 Seconds (25.1-36.5) 12/06/17 17:43 - Constitutional Appears: Well, Non-toxic, No Acute Distress - Head Exam Head Exam: ATRAUMATIC, NORMAL INSPECTION, NORMOCEPHALIC - Eye Exam Eye Exam: EOMI - ENT Exam ENT Exam: Mucous Membranes Moist - GI/Abdominal Exam GI & Abdominal Exam: Soft, Normal Bowel Sounds. absent: Tenderness - Neurological Exam Neurological Exam: Alert, Awake - Psychiatric Exam Psychiatric exam: Normal Affect, Normal Mood - Skin Skin Exam: Dry, Intact, Normal Color, Warm Assessment and Plan - Assessment and Plan (Free Text) Assessment: 77F w/ rectal prolapse s/p loop colostomy POD4 Plan: Continue monitoring ostomy function Pain control Encourage IS use OOB DVT/GI PPX Pt stable and will be transferred to [facility] today Xiang Hameed PGY1
[2017-12-11 07:52] VITALS: PULSE 81; RESP 16; TEMP 98.3; O2SAT 99
--- NOTE | 2017-12-11 08:54 | CP.PCM.PCO ---
Physician Communication Note - Physician Communication Note Physician Communication Note: KAMLA D/C--F/U Office 1 week
[2017-12-11] MEDS: Docusate-Senna 50 mg-8.6 mg Tab PO SCH (10:32)
[2017-12-11] MEDS: POLYETHYLENE GLYCOL 3350 17 GM/Dose PACKET PO SCH (10:32)
[2017-12-11] MEDS: Enoxaparin 30 mg Syringe SC SCH (10:32)
[2017-12-11 10:35] VITALS: BP 148/89
--- NOTE | 2017-12-11 15:58 | OP ---
PROCEDURE DATE: 12/07/2017 She is admitted on 12/06/2017, operated on 12/07/2017. SURGEON: Jim Lopez MD ALLERGY AND IMMUNOLOGY CHIEF: Bennie Higginbotham DO, PGY-3. SHOE FOLDER: Jaime Nieves MD. ANESTHESIA: General endotracheal. PREOPERATIVE DIAGNOSIS: Rectal prolapse secondary to chronic constipation. POSTOPERATIVE DIAGNOSIS: Rectal prolapse secondary to chronic constipation. PROCEDURE: Transverse loop colostomy. OPERATIVE INDICATION: The patient is a 77-year-old female who has had severe unrelenting constipation for the past 3 years. Over the past 4 to 6 weeks she has been straining so hard that she has prolapsed her rectum approximately 3 or 4 cm with what appears to be mainly mucosal prolapse. She also had a very lax anal sphincter due to this chronic straining and had undergone a PPH stapled hemorrhoidectomy 2-1/2 weeks ago and Thiersch anal ring placed subcutaneously to prevent further prolapse. Despite all efforts, the patient had finished her rehabilitation and was sent home and the family was giving her 1 teaspoon of MiraLax twice daily instead of 1 tablespoon and the patient started straining and prolapsed her hemorrhoid mucosa significantly again to the point where it could not be reduced and the patient had to be admitted on an emergent basis. External packing with hyperosmotic sugar and a dry dressing dried out the tissues so that they prolapsed just prior to the procedure and were able to be reduced. At this point, it was elected to perform a minimal procedure including a transverse loop colostomy to divert the fecal stream and allow the patient to avoid straining in the future. Risks, benefits and the alternatives with their anticipated outcomes were discussed with the patient's family and they signed the informed consent. A real definitive procedure (intra-abdominal proctopexy was prescribed, but will be postponed until the patient demonstrates further need or is in slightly better shape than she is at this point. OPERATIVE NOTE: The patient was brought to the operating room, identified by her wrist band, undergoes time-out procedure and was placed on the table in a supine manner. The patient undergoes the induction of general anesthesia and the insertion of an endotracheal tube. Below the umbilicus just above the pubis is a large soft ball sized nonreducible mass. 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 Over the next 10 minutes, the mass disappeared and the abdomen was able to be prepped with Betadine and the patient aseptically draped. Transverse incision was made in the epigastrium after infiltration of the skin with the bupivacaine. The dissection is carried on down through to the rectus musculature and the midline, which is transected with the cautery scalpel and hemostasis is contained with same. The peritoneum was entered between clamps. The colon is brought up into the incision. The ascending colon is pulled up into the incision and the transverse colon is reinserted back into the abdomen towards the left side and the mesocolon is elevated on a [place] tape while the abdominal wall was closed with buried #1 interrupted [id number] Smead-Lazaro sutures. Once the tissue was securely closed and there is less risk for paracolostomy hernia to form. The subcutaneous tissues are now lavaged with saline. Hemostasis is confirmed and then closed with 3-0 subcutaneous and subcuticular Polysorb suture. The colostomy wafer (17 mm) is cut to size, placed onto the anterior abdominal wall with Mastisol adhesive and the stoma elevated with a [place] and the colostomy matured at this point by opening the transverse colon. The colon is now opened by cautery scalpel and sutured over to the skin with interrupted 3-0 Polysorb sutures. Extensive amount of gas and liquid stool evacuate quickly from the proximal end and the distal end is decompressed with the Wells suction device and the bag and spacer wafer are inserted and the patient is awakened and transported to the recovery room in a satisfactory condition. Fascia and skin are infiltrated with bupivacaine at the end of the procedure. Sponge, instrument and suture count were verified as correct at the end of the procedure. The patient is transported to the recovery room with an estimated blood loss of less than 10 mL of blood. Jim Lopez MD
--- NOTE | 2017-12-11 21:08 | DS ---
HISTORY OF PRESENT ILLNESS: The patient is a 77-year-old, seen and examined. She was admitted because of rectal prolapse that was reducible. The patient was seen Dr. Lopez office and he could not reduce rectal prolapse, so she was admitted and she was taken to OR, has transverse colostomy done, and rectum was pulled up and stapled. PHYSICAL EXAMINATION: GENERAL: Today; she is awake, alert, oriented, and communicative. VITAL SIGNS: She is afebrile, pulse 81, respirations 16, and blood pressure 148/89. LUNGS: Bilateral fir airflow. No rhonchi or crackle. HEART: S1 and S2 audible. ABDOMEN: Soft, colostomy in function. NEUROLOGIC: She is awake, alert, oriented, communicative, and ambulatory. ASSESSMENT: 1. Status post rectal prolapse, status post transverse colostomy. 2. History of embolic stroke. 3. Hypertension. 4. Mild dementia. PLAN: The patient is being transferred to [facility] today where family will be educated about her colostomy and I will follow the patient . Froy Flores MD
== END 2017-12-11 13:53 | DRG 331 ==
LOC: ED 15:53 → OBSVTOIN 17:09 → ERH 17:09 → 2RSO 17:45 → ERH 21:37 → 2RSO 22:25 → 5RNO 12-09 09:53
PROVIDERS: ADMIT Surgery; ATTEND Surgery
PROC: 0D1L0Z4 Bypass Transverse Colon to Cutaneous, Open Approach (ICD-10-PCS; principal; 2017-12-07 11:30)
DX: K62.3 Rectal prolapse (principal); K59.09 Other constipation; N35.92 Unspecified urethral stricture, female; J44.9 Chronic obstructive pulmonary disease, unspecified; I10 Essential (primary) hypertension; E78.5 Hyperlipidemia, unspecified; E87.6 Hypokalemia; F03.90 Unspecified dementia, unspecified severity, without behavioral disturbance, psychotic disturbance, mood disturbance, and anxiety; D64.9 Anemia, unspecified; J43.9 Emphysema, unspecified; K29.70 Gastritis, unspecified, without bleeding; K21.9 Gastro-esophageal reflux disease without esophagitis; M15.9 Polyosteoarthritis, unspecified; Z66 Do not resuscitate; Z87.891 Personal history of nicotine dependence; Z86.73 Personal history of transient ischemic attack (TIA), and cerebral infarction without residual deficits; Z79.899 Other long term (current) drug therapy

== ENCOUNTER 2018-01-05 22:01 | Observation (INO) | payer MEDICARE, BC ==
[2018-01-05] MEDS ORDERED: Sodium Chloride 0.9% 1,000 ML IV SCH (22:30)
[2018-01-05] MEDS ORDERED: Morphine 2 mg/ml ISec IVP STA (22:30)
--- NOTE | 2018-01-05 22:30 | ED PDOC ---
Arrival/HPI - General Chief Complaint: Abdominal Pain Time Seen by Provider: 01/05/18 22:18 Historian: Patient, Family - History of Present Illness Narrative History of Present Illness (Text): 01/05/18 22:27 Abimbola Ni is a 77 year old female, whose past medical history includes PPH stapled hemorrhoidectomy, rectal prolapse s/p transverse loop colostomy, appendectomy, COPD, generalized osteoarthritis, gastritis, hypertension, and hyperlipidemia, who presents to the Emergency department complaining of abdominal pain and herniation of bowel from stoma site. Daughter states patient recently underwent a colostomy on 12/07/2017 due to recurrent episodes of rectal prolapse. Daughter reports while changing the patient's colostomy bag at 21:00 she noted the stoma began to herniate, and worsened since then. Patient reports associated pain to the area. Patient denies any fever, chills, nausea, vomiting, headache, dizziness, or any other complaints. Surgeon: Dr. Clay Lopez Time/Duration: Other (tonight) Symptom Onset: Gradual Symptom Course: Unchanged Activities at Onset: Light Context: Home Past Medical History - Provider Review Nursing Documentation Reviewed: Yes - Infectious Disease Hx of Infectious Diseases: None - Tetanus Immunization Tetanus Immunization: Unknown - Reproductive Menopause: Yes - Cardiac Hx Cardiac Disorders: No Hx Hypertension: Yes - Pulmonary Hx Chronic Obstructive Pulmonary Disease (COPD): Yes - Neurological Hx Neurological Disorder: No - HEENT Hx HEENT Disorder: Yes Hx Cataracts: Yes - Renal Hx Renal Disorder: No - Endocrine/Metabolic Hx Endocrine Disorders: No - Hematological/Oncological Hx Blood Disorders: No - Integumentary Hx Dermatological Disorder: Yes Hx Psoriasis: Yes - Musculoskeletal/Rheumatological Hx Musculoskeletal Disorders: Yes - Gastrointestinal Hx Gastrointestinal Disorders: Yes Hx Crohn's Disease: Yes Hx Gastroesophageal Reflux: Yes Other/Comment: Rectal prolapse - Genitourinary/Gynecological Hx Genitourinary Disorders: Yes Hx Urinary Tract Infection: Yes - Psychiatric Hx Psychophysiologic Disorder: No Hx Substance Use: No - Surgical History Hx Appendectomy: Yes Other/Comment: skin ca removal. Stoma - Anesthesia Hx Anesthesia: Yes Hx Anesthesia Reactions: No Hx Malignant Hyperthermia: No - Suicidal Assessment Feels Threatened In Home Enviroment: No Family/Social History - Physician Review Nursing Documentation Reviewed: Yes Family/Social History: Unknown Family HX Smoking Status: Former Smoker Hx Alcohol Use: No Hx Substance Use: No Hx Substance Use Treatment: No Allergies/Home Meds Allergies/Adverse Reactions: Allergies cefuroxime axetil [From Ceftin] Allergy (Verified 01/05/18 22:16) DIARRHEA gluten Allergy (Verified 01/05/18 22:16) ANAPHYLAXIS Home Medications: Home Meds Medication Instructions Recorded Confirmed RX: Ranitidine HCl [Zantac] 150 mg PO DAILY 10/04/17 01/05/18 RX: amLODIPine [Norvasc] 2.5 mg PO BID 10/04/17 01/05/18 Review of Systems - Physician Review All systems were reviewed & negative as marked: Yes - Review of Systems Constitutional: Normal. absent: Fevers Eyes: Normal ENT: Normal Respiratory: Normal. absent: SOB, Cough Cardiovascular: Normal. absent: Chest Pain Gastrointestinal: Abdominal Pain. absent: Diarrhea, Nausea, Vomiting Genitourinary Female: Normal. absent: Dysuria, Frequency, Hematuria, Urine O utput Changes Musculoskeletal: Normal. absent: Back Pain, Neck Pain Skin: Normal. absent: Rash Neurological: Normal. absent: Headache, Dizziness Endocrine: Normal Hemo/Lymphatic: Normal Psychiatric: Normal Physical Exam Vital Signs Reviewed: Yes Vital Signs Temp Pulse Resp BP Pulse Ox 01/05/18 22:06 97.7 F 78 18 162/78 H 96 01/05/18 22:01 97.7 F 78 18 162/78 H 96 Temperature: Afebrile Blood Pressure: Normal Pulse: Regular Respiratory Rate: Normal Appearance: Positive for: Well-Appearing, Non-Toxic, Comfortable Pain Distress: None Mental Status: Positive for: Alert and Oriented X 3 - Systems Exam Head: Present: Atraumatic, Normocephalic Pupils: Present: PERRL Extroacular Muscles: Present: EOMI Conjunctiva: Present: Normal Mouth: Present: Moist Mucous Membranes Neck: Present: Normal Range of Motion Respiratory/Chest: Present: Clear to Auscultation, Good Air Exchange. No: Respiratory Distress, Accessory Muscle Use Cardiovascular: Present: Regular Rate and Rhythm, Normal S1, S2. No: Murmurs Abdomen: Present: Tenderness, Mass/Organomegaly (Intestinal stoma prolapse with mild surrounding tenderness). No: Peritoneal Signs Back: Present: Normal Inspection Upper Extremity: Present: Normal Inspection. No: Cyanosis, Edema Lower Extremity: Present: Normal Inspection. No: Edema Neurological: Present: GCS=15, CN II-XII Intact, Speech Normal Skin: Present: Warm, Dry, Normal Color. No: Rashes Psychiatric: Present: Alert, Oriented x 3, Normal Insight, Normal Concentration Medical Decision Making ED Course and Treatment: 01/05/18 22:27 Impression: 77 year old female complaining of intestinal stoma prolapse tonight with associated pain. Plan: -- CT Abdomen and Pelvis -- Labs -- IV fluids -- Morphine -- Reassess and disposition Prior Visits: Notes and results from previous visits were reviewed. Progress Notes: 01/05/18 22:37 Case discussed with surgical garment inspector to ED to evaluate patient. 01/05/18 23:30 Case was discussed between /.Management was outlined. 01/06/18 01:[address] Flores. States to admit pt to Dr. Reese's service and she will consult on the case. 01/06/18 01:11 Spoke again with surgical garment inspector, who agrees with plan. Pt will be admitted to [facility] for intestinal stoma prolapse under Dr. Reese's service. - Lab Interpretations I have reviewed the lab results: Yes - Scribe Statement The provider has reviewed the documentation as recorded by the Rigo Sanderson Provider Scribe Attestation: All medical record entries made by the Scribe were at my direction and personally dictated by me. I have reviewed the chart and agree that the record accurately reflects my personal performance of the history, physical exam, medical decision making, and the department course for this patient. I have also personally directed, reviewed, and agree with the discharge instructions and disposition. Disposition/Present on Arrival - Present on Arrival Any Indicators Present on Arrival: No History of DVT/PE: No History of Uncontrolled Diabetes: No Urinary Catheter: No History of Decub. Ulcer: No History Surgical Site Infection Following: None - Disposition Have Diagnosis and Disposition been Completed?: Yes Diagnosis: Intestinal stoma prolapse Disposition: HOSPITALIZED Disposition Time: :19 Patient Plan: Admission Patient Problems: Current Active Problems Problem Status Onset Intestinal stoma prolapse Acute Condition: STABLE
[2018-01-05 23:20] LABS: HEMOGLOBIN 12.6 g/dL (12.0-16.0); MEAN CORPUSCULAR HEMOGLOBIN 28.9 pg (25.0-35.0); MEAN CORPUSCULAR HGB CONC 33.3 g/dl (31.0-37.0); MEAN PLATELET VOLUME 10.2 fl (7.0-11.0); RBC 4.36 10^6/uL (3.5-6.1); RED CELL DISTRIBUTION WIDTH 14.4 % (11.5-14.5)
--- NOTE | 2018-01-05 23:23 | CP.PCM.CON ---
History of Present Illness - History of Present Illness History of Present Illness: General Surgery Dr. Lopez 77 y/o F w/ PMHx of HTN, COPD, Crohn's, rectal prolapse presents to the ED at the direction of Dr. Lopez for bleeding stoma. Grand-daughter present at bedside, reports that earlier this evening, pt had leaking ostomy appliance. when grand-daughter and VNS attempted to change the appliance, the stoma was found to be prolapsed and bleeding. Pt had multiple episodes of diarrhea today causing leakage of the ostomy appliance. Per grand-daughter, pt c/o some nausea this AM though tolerated PO intake w/o any vomiting. Pt also c/o abd pain that started today which resolved w/ tylenol. Pain diffuse and intermitting. Pt denies straining, sneezing, coughing. Per daughter and grand-daughter, they have been decreasing pt's dose of Miralax based on stool consistency. Pt currently taking 1 capful daily and usually has loose, though formed stool. PMHx: see above, OA, GERD Meds: reviewed ALL: cefuroxime axetil, gluten PSHx: transverse colostomy, PPH, Therch anal ring, appendectomy SHx: denies tobacco, EtOH, drug us. FHx: noncontributory Review of Systems - Review of Systems All systems: reviewed and no additional remarkable complaints except (see HPI) Past Patient History - Infectious Disease Hx of Infectious Diseases: None - Tetanus Immunizations Tetanus Immunization: Unknown - Past Social History Smoking Status: Former Smoker - CARDIAC Hx Cardiac Disorders: No Hx Hypertension: Yes - PULMONARY Hx Chronic Obstructive Pulmonary Disease (COPD): Yes - NEUROLOGICAL Hx Neurological Disorder: No - HEENT Hx HEENT Problems: Yes Hx Cataracts: Yes - RENAL Hx Chronic Kidney Disease: No - ENDOCRINE/METABOLIC Hx Endocrine Disorders: No - HEMATOLOGICAL/ONCOLOGICAL Hx Blood Disorders: No - INTEGUMENTARY Hx Dermatological Problems: Yes Hx Psoriasis: Yes - MUSCULOSKELETAL/RHEUMATOLOGICAL Hx Musculoskeletal Disorders: Yes - GASTROINTESTINAL Hx Gastrointestinal Disorders: Yes Hx Crohn's Disease: Yes Hx Gastroesophageal Reflux: Yes Other/Comment: Rectal prolapse - GENITOURINARY/GYNECOLOGICAL Hx Genitourinary Disorders: Yes Hx Urinary Tract Infection: Yes - PSYCHIATRIC Hx Psychophysiologic Disorder: No Hx Substance Use: No - SURGICAL HISTORY Hx Appendectomy: Yes Other/Comment: skin ca removal. Stoma - ANESTHESIA Hx Anesthesia: Yes Hx Anesthesia Reactions: No Hx Malignant Hyperthermia: No Meds Allergies/Adverse Reactions: Allergies Allergy/AdvReac Type Severity Reaction Status Date / Time cefuroxime axetil Allergy DIARRHEA Verified 01/05/18 22:16 [From Ceftin] gluten Allergy ANAPHYLAXIS Verified 01/05/18 22:16 - Medications Medications: Current Medications Sodium Chloride (Sodium Chloride 0.9%) 1,000 mls @ 100 mls/hr IV .Q10H LIO Last Admin: 01/05/18 22:51 Dose: 100 mls/hr Physical Exam - Constitutional Appears: Non-toxic, No Acute Distress, Chronically Ill - Head Exam Head Exam: NORMAL INSPECTION - Eye Exam Eye Exam: Normal appearance - ENT Exam ENT Exam: Mucous Membranes Moist - Respiratory Exam Respiratory Exam: NORMAL BREATHING PATTERN. absent: Accessory Muscle Use, Respiratory Distress - Cardiovascular Exam Cardiovascular Exam: REGULAR RHYTHM. absent: Bradycardia, Tachycardia - GI/Abdominal Exam GI & Abdominal Exam: Soft. absent: Distended, Firm, Guarding, Rebound, Rigid, Tenderness Additional comments: prolapsed transverse colostomy, beefy red, grossly edematous - Extremities Exam Extremities exam: Positive for: normal inspection - Neurological Exam Neurological exam: Alert - Psychiatric Exam Psychiatric exam: Normal Affect, Normal Mood - Skin Skin Exam: Dry, Warm Results - Vital Signs Recent Vital Signs: Last Vital Signs Temp 97.7 F 01/05/18 22:06 Pulse 78 01/05/18 22:06 Resp 18 01/05/18 22:06 BP 162/78 H 01/05/18 22:06 Pulse Ox 96 01/05/18 22:06 - Labs Result Diagrams: 01/05/18 22:30 01/05/18 22:58 Assessment & Plan - Assessment and Plan (Free Text) Assessment: 77 y/o F w/ prolapsed transverse colostomy Plan: - NPO/IVF - f/u labs - will attempt to reduce prolapse - pain management - CTAP w/ PO & IV in AM - cont home meds - hold all anticoagulation/antiplatelet meds Pt discussed w/ Dr. John Heath DO PGY3
[2018-01-05 23:29] LABS: ALB/GLOB RATIO 1.3 (1.1-1.8); ALBUMIN 3.7 g/dL (3.0-4.8); ALT/SGPT 45 U/L (7-56); AST/SGOT 37 U/L (14-36); BLOOD UREA NITROGEN 17 mg/dL (7-21); CALCIUM 9.2 mg/dL (8.4-10.5); GFR NON-AFRICAN AMERICAN > 60
[2018-01-05 23:36] LABS: MEAN CELL VOLUME 86.7 fl (80.0-105.0)
[2018-01-06] MEDS ORDERED: Morphine 2 mg/ml ISec IVP STA (00:05)
[2018-01-06] MEDS ORDERED: Iohexol 240 (50 ml) ONE (00:08)
[2018-01-06] MEDS ORDERED: Iohexol 350 MG/100 ML VIAL ONE (00:08)
[2018-01-06 03:17] VITALS: BMI 15.0
--- NOTE | 2018-01-06 06:16 | CP.PCM.HP ---
History of Present Illness - History of Present Illness History of Present Illness: General Surgery Dr. Lopez 77 y/o F w/ PMHx of HTN, COPD, CVA, Crohn's, rectal prolapse presents to the ED at the direction of Dr. Lopez for bleeding stoma. Grand-daughter present at bedside, reports that earlier this evening, pt had leaking ostomy appliance. when grand-daughter and VNS attempted to change the appliance, the stoma was found to be prolapsed and bleeding. Pt had multiple episodes of diarrhea today causing leakage of the ostomy appliance. Per grand-daughter, pt c/o some nausea this AM though tolerated PO intake w/o any vomiting. Pt also c/o abd pain that started today which resolved w/ tylenol. Pain diffuse and intermitting. Pt denies straining, sneezing, coughing. Per daughter and grand-daughter, they have been decreasing pt's dose of Miralax based on stool consistency. Pt currently taking 1 capful daily and usually has loose, though formed stool. PMHx: see above, OA, GERD Meds: reviewed ALL: cefuroxime axetil, gluten PSHx: transverse colostomy, PPH, Therch anal ring, appendectomy SHx: denies tobacco, EtOH, drug us. FHx: noncontributory Present on Admission - Present on Admission Any Indicators Present on Admission: No Review of Systems - Review of Systems All systems: reviewed and no additional remarkable complaints except (see HPI) Past Patient History - Infectious Disease Hx of Infectious Diseases: None - Tetanus Immunizations Tetanus Immunization: Unknown - Past Social History Smoking Status: Former Smoker - CARDIAC Hx Cardiac Disorders: No Hx Hypertension: Yes - PULMONARY Hx Chronic Obstructive Pulmonary Disease (COPD): Yes - NEUROLOGICAL Hx Neurological Disorder: No - HEENT Hx HEENT Problems: Yes Hx Cataracts: Yes - RENAL Hx Chronic Kidney Disease: No - ENDOCRINE/METABOLIC Hx Endocrine Disorders: No - HEMATOLOGICAL/ONCOLOGICAL Hx Blood Disorders: No - INTEGUMENTARY Hx Dermatological Problems: Yes Hx Psoriasis: Yes - MUSCULOSKELETAL/RHEUMATOLOGICAL Hx Musculoskeletal Disorders: Yes - GASTROINTESTINAL Hx Gastrointestinal Disorders: Yes Hx Crohn's Disease: Yes Hx Gastroesophageal Reflux: Yes Other/Comment: Rectal prolapse - GENITOURINARY/GYNECOLOGICAL Hx Genitourinary Disorders: Yes Hx Urinary Tract Infection: Yes - PSYCHIATRIC Hx Psychophysiologic Disorder: No Hx Substance Use: No - SURGICAL HISTORY Hx Appendectomy: Yes Other/Comment: skin ca removal. Stoma - ANESTHESIA Hx Anesthesia: Yes Hx Anesthesia Reactions: No Hx Malignant Hyperthermia: No Meds Allergies/Adverse Reactions: Allergies Allergy/AdvReac Type Severity Reaction Status Date / Time cefuroxime axetil Allergy DIARRHEA Verified 01/05/18 22:16 [From Ceftin] gluten Allergy ANAPHYLAXIS Verified 01/05/18 22:16 Physical Exam - Constitutional Appears: Non-toxic, No Acute Distress, Chronically Ill - Head Exam Head Exam: NORMAL INSPECTION - Eye Exam Eye Exam: Normal appearance - ENT Exam ENT Exam: Mucous Membranes Moist - Respiratory Exam Respiratory Exam: NORMAL BREATHING PATTERN. absent: Accessory Muscle Use, Respiratory Distress - Cardiovascular Exam Cardiovascular Exam: REGULAR RHYTHM. absent: Bradycardia, Tachycardia - GI/Abdominal Exam GI & Abdominal Exam: Soft. absent: Distended, Firm, Guarding, Rebound, Rigid, Tenderness Additional comments: prolapsed transverse colostomy, beefy red, grossly edematous - Extremities Exam Extremities exam: Positive for: normal inspection - Neurological Exam Neurological exam: Alert - Psychiatric Exam Psychiatric exam: Normal Affect, Normal Mood - Skin Skin Exam: Normal Color, Warm Results - Vital Signs Recent Vital Signs: Last Vital Signs Temp 97.7 F 01/05/18 22:06 Pulse 66 01/06/18 03:00 Resp 16 01/06/18 03:00 BP 119/72 01/06/18 03:00 Pulse Ox 98 01/06/18 03:00 - Labs Result Diagrams: 01/05/18 22:30 01/05/18 22:58 Labs: Laboratory Results - last 24 hr 01/05/18 01/05/18 22:30 22:58 WBC 6.0 RBC 4.36 Hgb 12.6 Hct 37.8 MCV 86.7 D MCH 28.9 MCHC 33.3 RDW 14.4 Plt Count 290 MPV 10.2 Sodium 133 Potassium 3.3 L Chloride 97 L Carbon Dioxide 25 Anion Gap 14 BUN 17 Creatinine 0.7 Est GFR ( Amer) > 60 Est GFR (Non-Af Amer) > 60 Random Glucose 86 Calcium 9.2 Total Bilirubin 0.6 AST 37 H D ALT 45 Alkaline Phosphatase 132 H Total Protein 6.6 Albumin 3.7 Globulin 2.9 Albumin/Globulin Ratio 1.3 Assessment & Plan - Assessment and Plan (Free Text) Assessment: 77 y/o F w/ prolapsed transverse colostomy Plan: - NPO/IVF - f/u labs - will attempt to reduce prolapse - pain management - CTAP w/ PO & IV in AM - cont home meds - hold all anticoagulation/antiplatelet meds Pt discussed w/ Dr. John Heath DO PGY3
[2018-01-06] MEDS ORDERED: Morphine 2 mg/ml ISec IVP PRN (06:21)
[2018-01-06 07:09] LABS: HEMOGLOBIN 11.1 g/dL (12.0-16.0); MEAN CORPUSCULAR HEMOGLOBIN 28.4 pg (25.0-35.0); MEAN CORPUSCULAR HGB CONC 32.6 g/dl (31.0-37.0); MEAN PLATELET VOLUME 9.6 fl (7.0-11.0); RBC 3.91 10^6/uL (3.5-6.1); RED CELL DISTRIBUTION WIDTH 14.5 % (11.5-14.5); WHITE BLOOD COUNT 5.3 10^3/uL (4.5-11.0)
[2018-01-06 07:24] LABS: BLOOD UREA NITROGEN 8 mg/dL (7-21); CALCIUM 7.7 mg/dL (8.4-10.5); GFR NON-AFRICAN AMERICAN > 60
[2018-01-06 09:14] VITALS: RESP 20
[2018-01-06] MEDS ORDERED: Iohexol 300 100 ML IJ ONE (09:21)
[2018-01-06] MEDS ORDERED: Non Formulary Medication (Ranitidine Hcl [Zantac] 150 MG) PO SCH (10:00)
[2018-01-06] MEDS: POLYETHYLENE GLYCOL 3350 17 GM/Dose PACKET PO SCH (10:22)
--- NOTE | 2018-01-06 11:13 | CT ---
Date of service: 01/06/2018 PROCEDURE: CT Abdomen and Pelvis with contrast HISTORY: prolapsed colostomy COMPARISON: 10/25/2017 TECHNIQUE: Contrast dose: 100 cc of Omni 300 Radiation dose: Total exam DLP = 188.9 mGy-cm. This CT exam was performed using one or more of the following dose reduction techniques: Automated exposure control, adjustment of the mA and/or kV according to patient size, and/or use of iterative reconstruction technique. FINDINGS: LOWER THORAX: Unremarkable. LIVER: Multiple simple cysts. The liver is otherwise unremarkable GALLBLADDER AND BILE DUCTS: Unremarkable. PANCREAS: Unremarkable. No gross lesion or ductal dilatation. SPLEEN: Unremarkable. ADRENALS: Unremarkable. No mass. KIDNEYS AND URETERS: Unremarkable. No hydronephrosis. No solid mass. VASCULATURE: Unremarkable. No aortic aneurysm. Aortic calcification BOWEL: There is a midline colostomy. There is severe mural thickening and edema in the colon consistent with colitis. Suture line in the rectum. APPENDIX: Normal appendix. PERITONEUM: Unremarkable. No free fluid. No free air. LYMPH NODES: Unremarkable. No enlarged lymph nodes. BLADDER: There is a Gibson catheter in the bladder REPRODUCTIVE: Unremarkable. BONES: Chronic appearing compression fractures in the lumbar spine OTHER FINDINGS: None. IMPRESSION: There is a midline colostomy. There is severe mural thickening and edema in the colon consistent with colitis.
--- NOTE | 2018-01-06 11:25 | CP.PCM.PCO ---
Physician Communication Note - Physician Communication Note Physician Communication Note: Stoma reduced:Rx diet/Mylicon/reduced Miralax-No Surgery now
[2018-01-06] MEDS ORDERED: Potassium Chloride 20 mEq ER Tab PO ONE (16:09)
--- NOTE | 2018-01-06 22:17 | CON ---
DATE: 01/06/2018 HISTORY OF PRESENT ILLNESS: The patient is 77 years old, known to me from multiple previous admissions. The patient was having recurrent rectal prolapse, and she was feeling very uncomfortable, so she ended up having colostomy on 12/06. She was in [facility] for rehab, did well, but last night when the patient's daughter came to visit her, she saw that her intestine was popping out, so she got scared and called ambulance, and she was brought to emergency room, and she also saw blood from the stoma. They also noticed when they were trying to change the colostomy bag, stoma was much bigger and blown up, and she had loose motions also, so she was brought to the emergency room for further evaluation. No stiff cough or congestion. Denies any trauma. PAST MEDICAL HISTORY: Her past medical history is significant for; 1. Multiple embolic and thalamic embolic stroke 2. Gastritis, 3. Hypertension. 4. Hyperlipidemia. ALLERGIES: SHE IS ALLERGIC TO CEFUROXIME AND GLUTEN. SURGICAL HISTORY: Significant for transverse colostomy. She has a loop recorder placement and a history of appendectomy. SOCIAL HISTORY: Denies smoking, drinking, or alcohol use. PHYSICAL EXAMINATION GENERAL: She is awake, alert, oriented. Communicative. VITAL SIGNS: She is afebrile, pulse 69, respirations 20, blood pressure 121/61. LUNGS: Bilateral fair airflow. No rhonchi or crackles. HEART: S1 and S2 audible. ABDOMEN: Soft, nontender. Colostomy is in place. Stoma seems to be normal size now. She has greenish-brown stool with . No active bleeding. EXTREMITIES: Bilateral legs, no edema. LABORATORY DATA: WBC 5.3, hemoglobin 11, hematocrit 34, platelets of 240. Chemistry: Sodium 136, potassium 3.3, chloride 107, CO2 of 24, BUN 8, creatinine of 0.5, blood sugar of 76. ASSESSMENT: 1. Stomach prolapse, status post transverse colostomy. 2. History of embolic stroke. 3. Hypertension. 4. Hyperlipidemia. PLAN: We will continue the patient on current medications. CT scan of the abdomen and pelvis shows thickening of colon. We will follow up with electrolytes in a.m. and possible discharge. Froy Flores MD
[2018-01-07 06:44] LABS: BLOOD UREA NITROGEN 9 mg/dL (7-21); GFR NON-AFRICAN AMERICAN > 60
[2018-01-07 06:54] LABS: HEMOGLOBIN 10.5 g/dL (12.0-16.0); MEAN CELL VOLUME 86.6 fl (80.0-105.0); MEAN CORPUSCULAR HEMOGLOBIN 28.2 pg (25.0-35.0); MEAN CORPUSCULAR HGB CONC 32.6 g/dl (31.0-37.0); MEAN PLATELET VOLUME 10.6 fl (7.0-11.0); RBC 3.72 10^6/uL (3.5-6.1); RED CELL DISTRIBUTION WIDTH 14.4 % (11.5-14.5)
[2018-01-07 07:44] VITALS: BP 122/68; PULSE 72; TEMP 98; O2SAT 97
--- NOTE | 2018-01-07 07:48 | CP.PCM.DIS ---
Provider - Provider Date of Admission: 01/06/18 01:04 Attending physician: Jim Lopez MD Primary care physician: Jim Carlos Consults: 01/06/18 01:11 Physician Consult Stat Comment: Consulting Provider: Froy Flores Consulting Physician: Froy Flores Reason for Consult: medical clearance Time Spent in preparation of Discharge (in minutes): 60 Diagnosis - Discharge Diagnosis (1) Intestinal stoma prolapse Status: Acute Priority: High Hospital Course - Lab Results Lab Results: Most Recent Lab Values WBC 5.0 10^3/uL (4.5-11.0) 01/07/18 05:45 RBC 3.72 10^6/uL (3.5-6.1) 01/07/18 05:45 Hgb 10.5 g/dL (12.0-16.0) L 01/07/18 05:45 Hct 32.2 % (36.0-48.0) L 01/07/18 05:45 MCV 86.6 fl (80.0-105.0) 01/07/18 05:45 MCH 28.2 pg (25.0-35.0) 01/07/18 05:45 MCHC 32.6 g/dl (31.0-37.0) 01/07/18 05:45 RDW 14.4 % (11.5-14.5) 01/07/18 05:45 Plt Count 269 10^3/uL (120.0-450.0) 01/07/18 05:45 MPV 10.6 fl (7.0-11.0) 01/07/18 05:45 Sodium 136 mmol/L (132-148) 01/07/18 05:45 Potassium 3.4 mmol/L (3.6-5.0) L 01/07/18 05:45 Chloride 107 mmol/L (98-107) 01/07/18 05:45 Carbon Dioxide 25 mmol/L (21-33) 01/07/18 05:45 Anion Gap 8 (10-20) L 01/07/18 05:45 BUN 9 mg/dL (7-21) 01/07/18 05:45 Creatinine 0.5 mg/dl (0.7-1.2) L 01/07/18 05:45 Est GFR ( Amer) > 60 01/07/18 05:45 Est GFR (Non-Af Amer) > 60 01/07/18 05:45 Random Glucose 80 mg/dL (70-110) 01/07/18 05:45 Calcium 8.0 mg/dL (8.4-10.5) L 01/07/18 05:45 Magnesium 1.8 mg/dL (1.7-2.2) 01/07/18 05:45 Total Bilirubin 0.6 mg/dL (0.2-1.3) 01/05/18 22:58 AST 37 U/L (14-36) H D 01/05/18 22:58 ALT 45 U/L (7-56) 01/05/18 22:58 Alkaline Phosphatase 132 U/L (38-126) H 01/05/18 22:58 Total Protein 6.6 g/dL (5.8-8.3) 01/05/18 22:58 Albumin 3.7 g/dL (3.0-4.8) 01/05/18 22:58 Globulin 2.9 gm/dL 01/05/18 22:58 Albumin/Globulin Ratio 1.3 (1.1-1.8) 01/05/18 22:58 - Hospital Course Hospital Course: 77M y/o F w/ PMHx of HTN, COPD, CVA, Crohn's, recurrent rectal prolapse, and loop ostomy presented to [facility] on [place] Lopez for bleeding stoma. Prior to arrival patient had reported multiple episodes of N/V/D which caused a leakage within ostomy appliance. She was subsequently found to have a prolapsed ostomy upon evaluation. Ostomy was evaluated for necrosis/ischemia and digitally reduced w/ caution. She was monitored for 24 hours found to tolerate diet well. Subsequent abdominal examinations showed no recurrence of prolapse. She was seen and examined morning prior to discharge; no acute events overnight; no issues w/ stoma reported; She is toelerating diet well w/o any complaint. Patient is stable for discharge at this time - Date & Time of H&P Date of H&P: 01/06/18 Time of H&P: 06:13 Discharge Exam - Head Exam Head Exam: ATRAUMATIC, NORMAL INSPECTION - Eye Exam Eye Exam: EOMI, Normal appearance, PERRL. absent: Scleral icterus - Respiratory Exam Respiratory Exam: NORMAL BREATHING PATTERN, UNREMARKABLE - Cardiovascular Exam Cardiovascular Exam: REGULAR RHYTHM, +S1, +S2 - GI/Abdominal Exam GI & Abdominal Exam: Normal Bowel Sounds, Unremarkable Additional comments: No prolapse of ostomy noted Ostomy draining appropriately; Appliance in place No abdominal pain No erythema or tenderness - Rectal Exam Additional comments: No rectal prolapse noted - Neurological Exam Neurological exam: Alert, Oriented x3 - Psychiatric Exam Psychiatric exam: Normal Affect, Normal Mood - Skin Skin Exam: Dry, Intact, Normal Color, Warm Discharge Plan - Discharge Medications Prescriptions: Sennosides A and B [Senokot Tab] 8.6 mg PO DAILY 15 Days #15 tab - Follow Up Plan Condition: GOOD Disposition: HOME/ ROUTINE Additional Instructions: Please follow up with Dr. Lopez in 2 weeks or sooner if needed Please note the following changes to your medications: Please stop taking Miralax 17gm 1 cap twice daily Please start taking Miralax 15gm 1/2 cap once daily Please note dose and frequency change Please start taking senokot 8.6gm tab twice daily Please continue taking all other meds as previously prescribed Please go to the nearest emergency department if you begin experiencing worsening abdominal pain, unable to tolerate diet, and worsening symptoms; or if new concerning symptoms arise. Referrals: Froy Flores MD [Staff Provider] - Jim Lopez MD [Staff Provider] -
[2018-01-07] MEDS: POLYETHYLENE GLYCOL 3350 17 GM/Dose PACKET PO SCH (09:29)
--- NOTE | 2018-01-07 14:08 | PN ---
DATE: 01/07/2018 SUBJECTIVE: The patient is 77 years old seen and examined, sitting in chair, seems to be comfortable. Catheter was removed. She was able to void. PHYSICAL EXAMINATION: VITAL SIGNS: She is afebrile, pulse 72, respirations 20, blood pressure 122/68. LUNGS: Bilateral fair airflow. No rhonchi or crackles. HEART: S1 and S2 audible. ABDOMEN: Soft. Colostomy function is normal, looks healthy and reduced. EXTREMITIES: Bilateral legs, no edema. LABORATORY DATA: WBC 5.0, hemoglobin 10.5, hematocrit 32.2, platelets 269. Chemistry: Sodium 136, potassium 3.4, chloride 107, CO2 of 25, BUN 9, creatinine 0.5, blood sugar of 80. ASSESSMENT: 1. History of embolic stroke. 2. Status post colostomy secondary to recurrent rectal prolapse. 3. Status post prolapsed ostomy but it was spontaneously reduced and no more active bleeding, so patient is being discharged home. PLAN: She will resume her medications that include aspirin 81 daily, Norvasc 2.5 twice a day, she will be on stool softener. She will resume amlodipine, ranitidine, MiraLax, atorvastatin. Patient will follow up with the . Froy Flores MD
== END 2018-01-07 14:41 | disposition home or self-care (01) ==
LOC: ED 22:01 → ERH 01-06 01:04 → INTOOBSV 01-06 01:04 → ERH 01-06 02:04 → 3RSO 01-06 03:03
PROVIDERS: ADMIT Surgery; ATTEND Surgery
DX: K94.09 Other complications of colostomy (principal); Y83.3 Surgical operation with formation of external stoma as the cause of abnormal reaction of the patient, or of later complication, without mention of misadventure at the time of the procedure; I10 Essential (primary) hypertension; J44.9 Chronic obstructive pulmonary disease, unspecified; E78.5 Hyperlipidemia, unspecified; K21.9 Gastro-esophageal reflux disease without esophagitis; K29.70 Gastritis, unspecified, without bleeding; M15.9 Polyosteoarthritis, unspecified; Z87.891 Personal history of nicotine dependence; Z86.73 Personal history of transient ischemic attack (TIA), and cerebral infarction without residual deficits
CPT/HCPCS: 96374; 96375; 96376; 99284; G0378; J1885; J2270; J3480; J7030

== ENCOUNTER 2018-01-09 01:40 | Inpatient (IN) | payer MEDICARE, BC ==
[2018-01-09 01:40] VITALS: BMI 15.0
--- NOTE | 2018-01-09 02:00 | ED PDOC ---
Arrival/HPI - General Historian: Patient, Family - History of Present Illness Narrative History of Present Illness (Text): 01/09/18 01:59 Patient is a 77 year old female with past medical history of hypertension, COPD, rectal prolapse s/p colostomy, osteoarthritis, GERD who presents to the emergency department s/p fall. Patient was getting up from bed to use the commode when she lost her balance and fell. Patient states that she hit her head but denies LOC. At this time she reports having left hip and left knee pain. She denies any headaches, dizziness, visual changes, neck pain, cp, palpitations, sob, abdominal pain, urinary symptoms. Patient was recently admitted for stoma prolapse. PMD: Dr Borden Allergies: Cefuroxime axetil, gluten Medications: Norvasc 2.5mg PO BID Medical History: Hypertension, HLD, COPD, Osteoarthritis, GERD, rectal prolapse Surgical History: transverse colostomy, PPH, Therch anal ring, appendectomy Social History: Denies alcohol, tobacco, drug use Family History: Non contributory Time/Duration: Prior to Arrival Symptom Onset: Sudden Symptom Course: Worsening <Zunilda Woods - Last Filed: 01/09/18 05:35> <Jose Maier - Last Filed: 01/09/18 19:46> - General Chief Complaint: Trauma Time Seen by Provider: 01/09/18 01:59 Past Medical History - Provider Review Nursing Documentation Reviewed: Yes - Infectious Disease Hx of Infectious Diseases: None - Tetanus Immunization Tetanus Immunization: Unknown - Cardiac Hx Cardiac Disorders: No Hx Hypertension: Yes - Pulmonary Hx Chronic Obstructive Pulmonary Disease (COPD): Yes - Neurological Hx Neurological Disorder: No - HEENT Hx HEENT Disorder: Yes Hx Cataracts: Yes - Renal Hx Renal Disorder: No - Endocrine/Metabolic Hx Endocrine Disorders: No - Hematological/Oncological Hx Blood Disorders: No - Integumentary Hx Dermatological Disorder: Yes Hx Psoriasis: Yes - Musculoskeletal/Rheumatological Hx Musculoskeletal Disorders: Yes - Gastrointestinal Hx Gastrointestinal Disorders: Yes Hx Crohn's Disease: Yes Hx Gastroesophageal Reflux: Yes Other/Comment: Rectal prolapse - Genitourinary/Gynecological Hx Genitourinary Disorders: Yes Hx Urinary Tract Infection: Yes - Psychiatric Hx Psychophysiologic Disorder: No Hx Substance Use: No - Surgical History Hx Appendectomy: Yes Other/Comment: skin ca removal. Stoma - Anesthesia Hx Anesthesia: Yes Hx Anesthesia Reactions: No Hx Malignant Hyperthermia: No - Suicidal Assessment Feels Threatened In Home Enviroment: No <Zunilda Woods - Last Filed: 01/09/18 05:35> Family/Social History - Physician Review Nursing Documentation Reviewed: Yes Family/Social History: Unknown Family HX Smoking Status: Former Smoker Hx Alcohol Use: No Hx Substance Use: No Hx Substance Use Treatment: No <Zunilda Woods - Last Filed: 01/09/18 05:35> Allergies/Home Meds <Zunilda Woods - Last Filed: 01/09/18 05:35> <Jose Maier - Last Filed: 01/09/18 19:46> Allergies/Adverse Reactions: Allergies cefuroxime axetil [From Ceftin] Allergy (Verified 01/05/18 22:16) DIARRHEA gluten Allergy (Verified 01/05/18 22:16) ANAPHYLAXIS Home Medications: Home Meds Medication Instructions Recorded Confirmed RX: Ranitidine HCl [Zantac] 150 mg PO DAILY 10/04/17 01/09/18 RX: amLODIPine [Norvasc] 2.5 mg PO BID 10/04/17 01/09/18 Review of Systems - Physician Review All systems were reviewed & negative as marked: Yes - Review of Systems Constitutional: Normal. absent: Fatigue, Fevers Eyes: Normal. absent: Vision Changes ENT: Normal. absent: Hearing Changes Respiratory: Normal. absent: SOB, Cough, Wheezing Cardiovascular: Normal. absent: Chest Pain, Palpitations Gastrointestinal: Normal. absent: Abdominal Pain, Constipation, Diarrhea, Nausea, Vomiting Genitourinary Female: Normal. absent: Dysuria Musculoskeletal: Other (Left hip and left knee pain) Skin: Skin Lesions. absent: Rash, Pruritis Neurological: Normal. absent: Headache, Dizziness, Speech Changes <Zunilda Woods - Last Filed: 01/09/18 05:35> Physical Exam Appearance: Positive for: Uncomfortable, Cachectic Pain Distress: Moderate Mental Status: Positive for: Alert and Oriented X 3 - Systems Exam Head: Present: Contusion Pupils: Present: PERRL Extroacular Muscles: Present: EOMI Neck: Present: Other (Cervical collar in place) Respiratory/Chest: Present: Clear to Auscultation, Good Air Exchange. No: Respiratory Distress, Accessory Muscle Use Cardiovascular: Present: Regular Rate and Rhythm, Normal S1, S2, Other (+ loop recorder) Abdomen: Present: Other (+colostomy ). No: Tenderness, Distention Upper Extremity: Present: Normal Inspection Lower Extremity: Present: NORMAL PULSES, Tenderness (Left hip and left knee tenderness), Swelling (left knee swelling) Skin: Present: Warm, Dry, Normal Color Psychiatric: Present: Alert, Oriented x 3 <Zunilda Woods - Last Filed: 01/09/18 05:35> Vital Signs Temp Pulse Resp BP Pulse Ox 01/09/18 01:48 98.8 F 71 18 150/80 100 <Jose Maier - Last Filed: 01/09/18 19:46> Medical Decision Making ED Course and Treatment: 01/09/18 02:03 Patient seen and examined at bedside. Patient was attempting to get out of bed and use the commode when she fell. On exam, cervical collar in place, left hip tenderness and left knee tenderness. Plan - CT head w/o contrast - CT cervical spine w/o contrast - Left hip/pelvis x ray, Left knee x ray - Toradol 30mg IVP - CBC, CMP, Coags, Cardiac ISO - EKG, CXR 01/09/18 03:57 Patient returned back from CT scan. Reports having pain. Morphine 2mg IVP ordered. 01/09/18 05:02 Imaging and lab results reviewed. Will admit inpatient under Dr Flores's service. - RAD Interpretation Narrative RAD Interpretations (Text): 01/09/18 03:52 Hip/pelvis xray: left intertrochanteric fracture Knee xray: no acute fracture CXR: no acute cardiopulmonary disease 01/09/18 03:[address] w/o contrast: Age-appropriate cerebellar and cerebral atrophy. Mild chronic microvascular disease. No evidence of acute intracranial pathology. Cervical spine CT w/o contrast: Moderate osteopenia of the bones. Grade 1 retrolisthesis of C5 on C6. Moderate multilevel degenerative disc disease more prominent at C5-6 level. There are diffuse spondylotic changes. Findings are demonstrated by disc space narrowing, osteophyte formation and degenerative endplate changes. Facet joint arthropathy is noted. No fracture or dislocation is seen. No aggressive bone lesion is noted. Radiology Orders: 01/09/18 01:57 HEAD W/O CONTRAST [CT] Stat Hip Left [HIP MIN 4V W/ PELVIS LT] [RAD] Stat 01/09/18 01:58 KNEE WITH PATELLA LEFT 3 VIEW [RAD] Stat Sidehand: ED Physician - EKG Interpretation EKG Interpretation (Text): 01/09/18 02:39 EK bpm, NSR, no ST-T wave changes Interpreted by ED Physician: Yes Type: 12 lead EKG <ChuckZunilda - Last Filed: 01/09/18 05:35> ED Course and Treatment: 01/09/18 04:02 MARIA T has reviewed & agrees with the documentation as recorded. MARIA T has examined the patient and agrees with the treatment plan. 01/09/18 04:10 Patient seen and evaluated with [facility]ator medical [facility].Concurr with clinical findings, assessment,disposition. - RAD Interpretation Radiology Orders: 01/09/18 01:57 HEAD W/O CONTRAST [CT] Stat HIP MIN 2V W/ PELVIS LT [RAD] Stat 01/09/18 01:58 KNEE WITH PATELLA LEFT 3 VIEW [RAD] Stat 01/09/18 02:01 CERVICAL SPINE W/O CONTRAST [CT] Stat 01/09/18 02:08 CHEST ONE VIEW [RAD] Stat - Medication Orders Current Medication Orders: Discontinued Medications Ketorolac Tromethamine (Toradol) 30 mg IVP STAT STA Stop: 01/09/18 02:03 Last Admin: 01/09/18 02:23 Dose: 30 mg MAR Pain Assessment Document 01/09/18 02:23 (Rec: 01/09/18 02:24 [id number]) Pain Reassessment Is this a pain reassessment? Yes Sleep Is patient sleeping during reassessment? No Presence of Pain Presence of Pain Yes Pain Scale Used Protocol: PSCALES Pain Scale Used Numeric Location Left, Right or Bilateral Left Pain Location Body Site Hip Leg Description Description Acute Pain Behavior Facial Grimacing IVP Administration Document 01/09/18 02:23 (Rec: 01/09/18 02:24 [id number]) Charges for Administration # of IVP Administrations 1 <Jose Maier - Last Filed: 01/09/18 19:46> - PA / SOLE LEVELER / Resident Statement MARIA T has reviewed & agrees with the documentation as recorded. MARIA T has examined the patient and agrees with the treatment plan. <Jose Maier - Last Filed: 01/09/18 19:46> Disposition/Present on Arrival - Present on Arrival Any Indicators Present on Arrival: No History of DVT/PE: No History of Uncontrolled Diabetes: No Urinary Catheter: No History of Decub. Ulcer: No History Surgical Site Infection Following: None - Disposition Have Diagnosis and Disposition been Completed?: Yes Disposition Time: 05:05 Patient Plan: Admission <Zunilda Woods - Last Filed: 01/09/18 05:35> <Jose Maier - Last Filed: 01/09/18 19:46> - Disposition Diagnosis: Hip fracture, intertrochanteric Disposition: HOSPITALIZED Patient Problems: Current Active Problems Problem Status Onset Hip fracture, intertrochanteric Acute Condition: FAIR
[2018-01-09] MEDS ORDERED: Morphine 2 mg/ml ISec IVP STA (03:52)
[2018-01-09 04:09] LABS: INR 1.06; PARTIAL THROMBOPLASTIN TIME 25.4 Seconds (25.1-36.5); PROTHROMBIN TIME 12.1 SECONDS (9.4-12.5)
[2018-01-09 04:12] LABS: BASO # 0.03 K/mm3 (0.0-2.0); BASO % 0.5 % (0.0-3.0); EOS # 0.2 (0.0-0.7); EOS % 3.9 % (1.5-5.0); GRAN # 3.83 (1.4-6.5); GRAN % 62.8 % (50.0-68.0); HEMOGLOBIN 11.8 g/dL (12.0-16.0); LYMPH # 1.3 (1.2-3.4); LYMPH % 20.7 % (22.0-35.0); MEAN CORPUSCULAR HEMOGLOBIN 28.6 pg (25.0-35.0); MEAN CORPUSCULAR HGB CONC 33.2 g/dl (31.0-37.0); MEAN PLATELET VOLUME 10.2 fl (7.0-11.0); MONO # 0.7 (0.1-0.6); MONO % 12.1 % (1.0-6.0); RBC 4.13 10^6/uL (3.5-6.1); RED CELL DISTRIBUTION WIDTH 14.1 % (11.5-14.5); WHITE BLOOD COUNT 6.1 10^3/uL (4.5-11.0)
[2018-01-09 04:43] LABS: ALB/GLOB RATIO 1.2 (1.1-1.8); ALBUMIN 3.4 g/dL (3.0-4.8); ALT/SGPT 43 U/L (7-56); AST/SGOT 51 U/L (14-36); BLOOD UREA NITROGEN 8 mg/dL (7-21); CALCIUM 9.2 mg/dL (8.4-10.5); GFR NON-AFRICAN AMERICAN > 60
[2018-01-09 05:24] LABS: TROPONIN I < 0.01 ng/mL
[2018-01-09] MEDS: POLYETHYLENE GLYCOL 3350 17 GM/Dose PACKET PO SCH (10:07)
[2018-01-09] MEDS: Morphine 2 mg/ml ISec IVP PRN ×3 (10:08→21:18)
--- NOTE | 2018-01-09 10:18 | RAD ---
Date of service: 01/09/2018 PROCEDURE: Left Knee Radiographs. HISTORY: Pain. COMPARISON: None. FINDINGS: BONES: Normal. No fracture. JOINTS: Normal. No osteoarthritis. JOINT EFFUSION: None. OTHER FINDINGS: None. IMPRESSION: Normal radiographs of the left knee.
--- NOTE | 2018-01-09 10:19 | RAD ---
PROCEDURE: Left Hip X-ray Radiographs. HISTORY: Status post fall COMPARISON: None. FINDINGS: BONES: There relatively non placed intertrochanteric fracture of the left hip of acute. No additional acute fractures. Both hip joints are appropriately located within the respective acetabula. JOINTS: Joint spaces appear relatively preserved SOFT TISSUES: Small elliptical shaped calcification overlying the left lateral aspect of the true pelvis OTHER FINDINGS: None. IMPRESSION: Nondisplaced intertrochanteric fracture left hip. Note this report was placed in PA review folder follow
--- NOTE | 2018-01-09 10:20 | RAD ---
Date of service: 01/09/2018 HISTORY: Status post fall COMPARISON: Comparison made with prior study dated 12/06/2017 FINDINGS: LUNGS: No active pulmonary disease. PLEURA: No significant pleural effusion identified, no pneumothorax apparent. CARDIOVASCULAR: Mild aortic atherosclerotic calcification present. Normal cardiac size. Small cardiac overlies left cardiac silhouette OSSEOUS STRUCTURES: Minor multilevel degenerative spondylosis of the thoracic spine with levoscoliosis centered at the thoracolumbar junction. VISUALIZED UPPER ABDOMEN: Normal. OTHER FINDINGS: None. IMPRESSION: No acute infiltrates
[2018-01-09] MEDS ORDERED: Potassium Chloride 20 mEq ER Tab PO STA (11:55)
--- NOTE | 2018-01-09 12:56 | HP ---
DATE OF EXAM: 01/09/2018 CHIEF COMPLAINT AND HISTORY OF PRESENT ILLNESS: This is a 77-year-old female who is coming to the hospital after she had a fall, she started having pain in the left hip. The patient was unable to walk. She denied any loss of consciousness. The patient has a history of COPD, hypertension, rectal prolapse, status post colostomy placement, osteoarthritis, and GERD. She said she did hit her head, but denies any loss of consciousness. The patient has no complaints of any abdominal pain or back pain. No dysuria or frequency. No nocturia. She does state that she is weak. Her primary care doctor is Dr. Borden. FAMILY HISTORY: Noncontributory. SOCIAL HISTORY: She does not smoke, drink or use drugs. PAST MEDICAL HISTORY: As above. PAST SURGICAL HISTORY: Transverse colostomy, appendectomy. MEDICATIONS: Home medications are reviewed on the APR. PHYSICAL EXAMINATION VITAL SIGNS: Temperature 97.6, pulse is 67, blood pressure 121/68, respirations 18, O2 saturation is 96%. GENERAL: The patient lying in bed, comfortable, and in no acute distress. HEENT: Atraumatic and normocephalic. Anicteric sclerae. Moist mucosa. [place] conjunctivae. No oral lesions. NECK: No JVD, anterior and posterior adenopathy, thyromegaly, or bruits. CARDIOVASCULAR: S1 and S2 regular. No murmur, rubs, or gallop. LUNGS: Clear to auscultation bilaterally. No wheezes, rales, or rhonchi. ABDOMEN: Bowel sounds are positive. Soft, nontender and nondistended. No hepatosplenomegaly. No rebound and no guarding. Positive colostomy. EXTREMITIES: No cyanosis, clubbing, or edema. The left leg was not able to move because of pain. NEUROLOGIC: No facial asymmetry. Tongue is midline. No uvula deviation. Power is 5/5 upper extremity and lower extremity. Sensation intact in upper extremity and lower extremity. PSYCHIATRIC: She is awake, alert and oriented x3. No anxiety or depression. She has normal affect. GENITOURINARY: No CVA tenderness. VASCULAR: 2+ pulses in the carotid pulses and pedal pulses. SKIN: No erythema or nodules SPINE: Shows normal curvature. LABORATORY DATA: White count of 6.1, hemoglobin 11.8. INR is 1.06. Creatinine 0.5. DIAGNOSTIC DATA: Left hip x-ray that I reviewed showed that there is a fracture, intertrochanteric. Chest x-ray shows no infiltrate. Left knee x-ray shows no fractures. The cervical spine x-ray shows grade 1 retrolisthesis of C5 on C6. There is moderate DJD. CT of the head done shows chronic microvascular disease. ASSESSMENT: 1. Left hip fracture. 2. Frailty. 3. Dyslipidemia. 4. Positive colostomy. PLAN: The patient is on Norvasc for hypertension. I am going to continue on morphine for severe pain. She is on Percocet for moderate pain. The patient is on ketorolac for pain. She is on a heart-healthy diet. We will continue to follow closely. I will also get Dr. Johnston for Orthopedics and Dr. Padron for preop clearance. The patient has seen Dr. Padron in the past. John Paul Reyes MD
--- NOTE | 2018-01-09 16:25 | CT ---
Date of service: 01/09/2018 PROCEDURE: CT HEAD WITHOUT CONTRAST. HISTORY: head trauma COMPARISON: Comparison made with prior study 10/03/2017. TECHNIQUE: Axial computed tomography images were obtained through the head/brain without intravenous contrast. Radiation dose: Total exam DLP = 761.15 mGy-cm. This CT exam was performed using one or more of the following dose reduction techniques: Automated exposure control, adjustment of the mA and/or kV according to patient size, and/or use of iterative reconstruction technique. FINDINGS: HEMORRHAGE: No acute parenchymal, subarachnoid or extra-axial hemorrhage. BRAIN: Mild-moderate diffuse and confluent chronic white matter ischemic changes seen extending peripherally into the deep and subcortical white matter both cerebral hemispheres. There also appear to be a few small more discrete chronic appearing lacunar type infarcts scattered about deep and subcortical white matter. Chronic left thalamic and questionable chronic pontine infarct changes are also present. Note that the possibility of a small hyperacute infarct cannot be excluded on this study. Clinical correlation recommended. Mild generalized volume loss. 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 VENTRICLES: No obstructive hydrocephalus. CALVARIUM: There are no acute calvarial fractures. Note is made of 2 elliptical shaped soft tissue scalp lesions of 1 in the left frontal and another in the left parietal regions near the vertex.. No obvious subjacent cortical destructive changes. Findings are of uncertain etiology though could be skin surface moles however the possibility of other skin surface lesions including basal or squamous cell carcinoma not excluded. PARANASAL SINUSES: Unremarkable as visualized. No significant inflammatory changes. MASTOID AIR CELLS: Unremarkable as visualized. No inflammatory changes. OTHER FINDINGS: None. IMPRESSION: Mild-moderate diffuse and confluent chronic white matter ischemic changes seen extending peripherally into the deep and subcortical white matter both cerebral hemispheres. There also appear to be a few small more discrete chronic appearing lacunar type infarcts scattered about deep and subcortical white matter. Chronic left thalamic and questionable chronic pontine infarct changes are also present. Note that the possibility of a small hyperacute infarct cannot be excluded on this study. Clinical correlation recommended. 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 Mild generalized volume loss. Note is made of 2 elliptical shaped soft tissue scalp lesions of 1 in the left frontal and another in the left parietal regions near the vertex.. No obvious subjacent cortical destructive changes. Findings are of uncertain etiology though could be skin surface moles however the possibility of other skin surface lesions including basal or squamous cell carcinoma not excluded.
--- NOTE | 2018-01-09 17:26 | CT ---
Date of service: 01/09/2018 PROCEDURE: CT Cervical Spine without contrast HISTORY: Status post fall COMPARISON: None available. TECHNIQUE: Axial computed tomography images were obtained of the cervical spine without the use of intravenous contrast. Coronal and sagittal reformatted images were created and reviewed. Radiation dose: Total exam DLP = 146.83 mGy-cm. This CT exam was performed using one or more of the following dose reduction techniques: Automated exposure control, adjustment of the mA and/or kV according to patient size, and/or use of iterative reconstruction technique. FINDINGS: VERTEBRAE: No acute compression fractures nor retropulsed fragments.. Minimal posterior subluxation of the C5 over C6 segment. Vertebral bodies otherwise exhibit normal. Vertebral bodies and facets normally aligned. DISCS/SPINAL CANAL/NEURAL FORAMINA: Mild degenerative spondylosis is present at the C5-C6 and to a lesser degree C6-C7 levels. There is mild disc space narrowing at the C5-C6 level with endplate eburnation more so along the posterior disc margin. No disc herniation nor significant disc bulge. Uncovertebral facets are slightly hypertrophic the. Exit foramina are narrowed bilaterally left greater than right. At the C6-C7 level, there is also minor eburnation along the posterior endplate margins. No disc herniation or significant disc bulge. The overall central canal and exit foramina appear adequate. At the C4-C5 level, minor posterior disc space narrowing. Minimal degenerative squaring of the left uncovertebral joint. The facets also mildly hypertrophic left greater than right. Central canal appears adequate. Left exit foramen is slightly narrowed. Right exit foramen is adequate. PARASPINAL SOFT TISSUES: Unremarkable. OTHER FINDINGS: Mild biapical pleural thickening and parenchymal scarring changes right greater than left. No acute compression Note also made of vascular calcifications both carotid bifurcations left greater than right. IMPRESSION: No acute fractures. Mild degenerative spondylosis most notably affecting the C5-C6 level as described.
--- NOTE | 2018-01-09 22:17 | CARD ---
APPROVED REPORT Date of service: 01/09/2018 EKG Measurement Heart [id number] <Conclusion> Normal sinus rhythm Normal ECG
--- NOTE | 2018-01-09 23:40 | CON ---
DATE: 01/09/2018 TYPE OF DICTATION: Preop evaluation and risk stratification for OR for left intertrochanteric fracture. BRIEF CLINICAL HISTORY: This is a 77-year-old female with past medical history significant for hypertension, COPD, rectal prolapse, status post colostomy, osteoarthritis, gastroesophageal reflux, who fell down and sustained a left intertrochanteric fracture requiring internal fixation, ORIF. Preop evaluation cardiology consult was called. The patient denies any chest pain, shortness of breath or any palpitation. PAST MEDICAL HISTORY: Significant for gastroesophageal reflux, hypertension, COPD, history of left shoulder basal cell carcinoma and got radiation. RECENT CARDIAC WORKUP: As follows: The patient had echocardiography on 10/06/2017 that revealed normal segmental wall motion abnormality, calcified aortic valve, trace to mild aortic regurgitation, mild mitral regurgitation, mild to moderate tricuspid regurgitation. RV systolic pressure 39, calculated ejection fraction 57%. The patient had a loop recorder implantation on 10/07/2012 because in the past MRI showed subacute infarct to multiple areas in the occipital lobe. Neurology suggested loop recorder to unmask any occult arrhythmia or cryptogenic stroke. SOCIAL HISTORY: Denies any history of alcohol abuse. CURRENT MEDICATIONS: The patient is taking at home, amlodipine 2.5 mg daily, Senokot 8.6 mg daily, ranitidine that is Zantac 150 mg daily, Miralax 17 g daily, and atorvastatin 10 mg daily. ALLERGIES: ALLERGY TO CEFTIN, ALLERGY TO GLUTEN. REVIEW OF SYSTEMS: As per HPI. Negative for chest pain, negative for shortness of breath, negative for palpitations, except as per HPI. PHYSICAL EXAMINATION: As follows: VITAL SIGNS: Height of the patient is 5 feet 5 inches, weight of the patient 90 pounds, body mass index 15 kg/m2. Rest of the vitals: Temperature afebrile, heart rate 67, blood pressure 121/68. HEENT: PERRLA. Extraocular muscles intact. NECK: Supple. No carotid bruits or thyromegaly. CHEST: Clear to auscultation. HEART: S1 and S2 regular. ABDOMEN: Soft. EXTREMITIES: Clubbing and cyanosis negative. LABORATORY DATA: EKG shows normal sinus at a rate of 62. No acute ST-T changes noted. Blood workup: WBC 6.1, hemoglobin 11.8, hematocrit 35.5, platelet count 296. Chemistry shows sodium 133, potassium 3.7, chloride of 101, carbon dioxide 25, anion gap of 11, BUN 8, creatinine 0.5. Troponin 0.01 negative. IMPRESSION: A 77-year-old female with past medical history of cerebrovascular accident status post loop recorder implantation to rule out any cryptogenic stroke, recent echo shows preserved left ventricular function, no significant structural heart disease, ejection fraction is preserved except trace to mild aortic regurgitation, mild mitral regurgitation, mild to moderate tricuspid regurgitation, RV systolic pressure of 39. Mild borderline hypertension and hyperlipidemia. Admitted with fall leading to sustaining left intertrochanteric fracture of the hip requiring OR internal fixation. In view of above, the patient has no absolute contraindication, no evidence of acute illness. The patient has a loop recorder implantation but did not reveal any arrhythmia since 10/07/2017. Echo shows preserved left ventricular function. No evidence of ischemia, no evidence of arrhythmia, no evidence of congestive heart failure or angina. The patient is okay to go for surgery with moderate risk with underlying comorbidity and small body habitus. We will follow with you. We will get lipid profile, TSH, and hemoglobin A1c. We will put low-dose beta mohan at 12.5 p.o. b.i.d. and continue preoperative low-dose beta mohan. We will also supplement 40 of K-Dur now. Thank you Dr. Reyes for providing the opportunity in taking care of the patient, Abimbola Jacques. We will notify Dr. Johnston and Dr. Reyes in the OR. Renu Padron MD
[2018-01-10 06:45] LABS: BASO # 0.03 K/mm3 (0.0-2.0); BASO % 0.5 % (0.0-3.0); EOS # 0.3 (0.0-0.7); EOS % 4.4 % (1.5-5.0); GRAN # 3.76 (1.4-6.5); GRAN % 56.9 % (50.0-68.0); HEMOGLOBIN 10.2 g/dL (12.0-16.0); LYMPH # 1.4 (1.2-3.4); LYMPH % 21.5 % (22.0-35.0); MEAN CORPUSCULAR HEMOGLOBIN 28.3 pg (25.0-35.0); MEAN CORPUSCULAR HGB CONC 32.5 g/dl (31.0-37.0); MONO # 1.1 (0.1-0.6); MONO % 16.7 % (1.0-6.0); RBC 3.61 10^6/uL (3.5-6.1); RED CELL DISTRIBUTION WIDTH 14.7 % (11.5-14.5); WHITE BLOOD COUNT 6.6 10^3/uL (4.5-11.0)
[2018-01-10 07:11] LABS: ALBUMIN 2.8 g/dL (3.0-4.8); ALT/SGPT 43 U/L (7-56); AST/SGOT 28 U/L (14-36); BLOOD UREA NITROGEN 12 mg/dL (7-21); CALCIUM 8.6 mg/dL (8.4-10.5); GFR NON-AFRICAN AMERICAN > 60; HDL CHOLESTEROL 42 mg/dL (29-60); LDL CHOLESTEROL 42 mg/dL (0-129)
--- NOTE | 2018-01-10 07:30 | CP.PCM.PN ---
Subjective - Date & Time of Evaluation Date of Evaluation: 01/10/18 Time of Evaluation: 06:45 - Subjective Subjective: Awake, alert, confuse, no distress Reason for consultation and follow up: Cardiac evaluation and pre-op risk stratification for hip surgery, history of hypertension, COPD,rectal prolapse post colostomy, GERD, osteoarthritis. Seen and examined by me and Dr. Padron Objective - Vital Signs/Intake and Output Vital Signs (last 24 hours): Temp Pulse Resp BP Pulse Ox 98.9 F 75 18 127/75 98 01/09/18 23:21 01/09/18 23:21 01/09/18 23:21 01/09/18 23:21 01/09/18 23:21 Intake and Output: 01/10/18 01/10/18 06:59 18:59 Intake Total 960 Output Total 1550 Balance -590 - Medications Medications: Current Medications Acetaminophen (Tylenol 325mg Tab) 650 mg PO Q4H PRN PRN Reason: Pain, Mild (1-3) Amlodipine Besylate (Norvasc) 2.5 mg PO BID [facility] Last Admin: 01/09/18 17:17 Dose: 2.5 mg Atorvastatin Calcium (Lipitor) 10 mg PO DIN [facility] Last Admin: 01/09/18 17:17 Dose: 10 mg Metoprolol Tartrate (Lopressor) 12.5 mg PO BID [facility] Last Admin: 01/09/18 17:12 Dose: 12.5 mg Morphine Sulfate (Morphine) 2 mg IVP Q4H PRN PRN Reason: Pain, severe (8-10) Last Admin: 01/09/18 21:18 Dose: 2 mg Oxycodone/Acetaminophen (Percocet 5/325 Mg Tab) 1 tab PO Q4H PRN PRN Reason: Pain, moderate (4-7) Stop: 01/12/18 09:22 Polyethylene Glycol (Miralax) 17 gm PO DAILY [facility] Last Admin: 01/09/18 10:07 Dose: 17 gm Sennosides (Senokot Tab) 8.6 mg PO DAILY [facility] Last Admin: 01/09/18 10:07 Dose: 8.6 mg - Labs Labs: 01/10/18 06:00 01/10/18 06:00 PT 12.1 SECONDS (9.4-12.5) 01/09/18 03:30 INR 1.06 01/09/18 03:30 APTT 25.4 Seconds (25.1-36.5) 01/09/18 03:30 - Constitutional Appears: Non-toxic, No Acute Distress - Head Exam Head Exam: NORMAL INSPECTION, NORMOCEPHALIC - Eye Exam Eye Exam: Normal appearance Pupil Exam: NORMAL ACCOMODATION - ENT Exam ENT Exam: Mucous Membranes Moist, Normal Exam - Respiratory Exam Respiratory Exam: Clear to Ausculation Bilateral, NORMAL BREATHING PATTERN - Cardiovascular Exam Cardiovascular Exam: +S1, +S2 - GI/Abdominal Exam GI & Abdominal Exam: Soft, Normal Bowel Sounds - Exam Additional comments: grimaldo catheter - Extremities Exam Additional comments: left hip pain - Neurological Exam Neurological Exam: Alert, Awake Additional comments: confuse - Psychiatric Exam Psychiatric exam: Anxious - Skin Skin Exam: Dry, Normal Color, Warm Assessment and Plan - Assessment and Plan (Free Text) Assessment: A 77 year old female who came in to the ER due to fall and sustained a left intertrochanteric fracture of the left hip. History of hypertension, COPD,rectal prolapse post colostomy, GERD, osteoarthritis., left shoulder basal cell carcinoma with radiation. Pre-op cardiac evaluation for possible left hip ORIF. Recent Echo 10/06/17 showed LVEF 57%, calcified aortic valve, trace to mild aortic regurgitation, mild mitral regurgitation, mild to moderate tricuspid regurgitation. Had loop recorder 09/2012 due to past MRI showed subacute multiple areas of infarct in the occipital lobe. Loop recorder was recommended by Neurology to see any occult arrythmia or cyptogenic stroke.Chest xray normal/u nremarkable,EKG-normal sinus rhythm, Troponin normal. No absolute contraindication for surgery. Patient denies chest pain or shortness of breath. No evidence of ischemia or heart failure. Cleared for Surgery with moderate risk. Plan: For left hip surgery Cleared for surgery from cardiac standpoint Moderate risk for surgery Heart rate controlled Blood pressure controlled On Norvasc 2.5 mg BID,Lipitor 10 mg daily, Lopressor 12.5 mg BID Continue current treatment Continue current medications Will follow up postoperatively Plan and treatment discussed with Dr. Padron
[2018-01-10] MEDS: Morphine 2 mg/ml ISec IVP PRN (08:42)
[2018-01-10] MEDS: POLYETHYLENE GLYCOL 3350 17 GM/Dose PACKET PO SCH (10:13)
--- NOTE | 2018-01-10 11:57 | CP.PCM.CON ---
History of Present Illness - History of Present Illness History of Present Illness: ortho consult for Dr. Johnston 77 F s/p fall. Patient states she is unsure of when the fall occurred as she is confused, which is her baseline, but states she was opening the door when she fell. She complains of left hip pain. She states she usually does not ambulate with any assistive devices and she does live alone. She denies any LOC, numbness or tingling or pain in any other parts of the body. Review of Systems - Musculoskeletal Musculoskeletal: As Per HPI Past Patient History - Infectious Disease Hx of Infectious Diseases: None - Tetanus Immunizations Tetanus Immunization: Unknown - Past Social History Smoking Status: Former Smoker - CARDIAC Hx Cardiac Disorders: Yes Hx Hypertension: Yes - PULMONARY Hx Chronic Obstructive Pulmonary Disease (COPD): Yes - NEUROLOGICAL Hx Neurological Disorder: No - HEENT Hx HEENT Problems: Yes Hx Cataracts: Yes - RENAL Hx Chronic Kidney Disease: No - ENDOCRINE/METABOLIC Hx Endocrine Disorders: No - HEMATOLOGICAL/ONCOLOGICAL Hx Blood Disorders: No - INTEGUMENTARY Hx Dermatological Problems: Yes Hx Psoriasis: Yes - MUSCULOSKELETAL/RHEUMATOLOGICAL Hx Falls: Yes - GASTROINTESTINAL Hx Gastrointestinal Disorders: Yes Hx Crohn's Disease: Yes Hx Gastroesophageal Reflux: Yes Other/Comment: Rectal prolapse - GENITOURINARY/GYNECOLOGICAL Hx Genitourinary Disorders: Yes Hx Urinary Tract Infection: Yes - PSYCHIATRIC Hx Psychophysiologic Disorder: No - SURGICAL HISTORY Hx Surgeries: Yes Hx Appendectomy: Yes Other/Comment: skin ca removal. Stoma - ANESTHESIA Hx Anesthesia: Yes Hx Anesthesia Reactions: No Hx Malignant Hyperthermia: No Meds Allergies/Adverse Reactions: Allergies Allergy/AdvReac Type Severity Reaction Status Date / Time cefuroxime axetil Allergy DIARRHEA Verified 01/05/18 22:16 [From Ceftin] gluten Allergy ANAPHYLAXIS Verified 01/05/18 22:16 - Medications Medications: Current Medications Acetaminophen (Tylenol 325mg Tab) 650 mg PO Q4H PRN PRN Reason: Pain, Mild (1-3) Amlodipine Besylate (Norvasc) 2.5 mg PO BID [facility] Last Admin: 01/10/18 10:23 Dose: Not Given Atorvastatin Calcium (Lipitor) 10 mg PO DIN [facility] Last Admin: 01/09/18 17:17 Dose: 10 mg Metoprolol Tartrate (Lopressor) 12.5 mg PO BID [facility] Last Admin: 01/09/18 17:12 Dose: 12.5 mg Morphine Sulfate (Morphine) 2 mg IVP Q4H PRN PRN Reason: Pain, severe (8-10) Last Admin: 01/10/18 08:42 Dose: 2 mg Oxycodone/Acetaminophen (Percocet 5/325 Mg Tab) 1 tab PO Q4H PRN PRN Reason: Pain, moderate (4-7) Stop: 01/12/18 09:22 Polyethylene Glycol (Miralax) 17 gm PO DAILY [facility] Last Admin: 01/10/18 10:13 Dose: Not Given Sennosides (Senokot Tab) 8.6 mg PO DAILY [facility] Last Admin: 01/10/18 10:23 Dose: Not Given Physical Exam - Constitutional Appears: No Acute Distress, Confused - Head Exam Head Exam: ATRAUMATIC, NORMAL INSPECTION - Extremities Exam Additional comments: On examination, this is an elderly female who is alert and awake but is confused. She is in no acute distress. On examination of the left hip, the skin is intact. There is no obvious deformity. Slight external rotation noted of the left lower extremity. Tenderness to palpation noted about the hip. Pain noted with passive internal and external rotation of the hip. Pain with passive hip flexion. +AROM foot and ankle. Sensation is intact to light touch. Calf and thigh is soft and nontender to palpation. Grossly she is neurovascularly intact distally Results - Vital Signs Recent Vital Signs: Last Vital Signs Temp 96 F L 01/10/18 08:00 Pulse 96 H 01/10/18 08:00 Resp 18 01/10/18 06:00 BP 121/69 01/10/18 10:23 Pulse Ox 96 01/10/18 08:00 - Labs Result Diagrams: 01/10/18 06:00 01/10/18 06:00 Labs: Laboratory Results - last 24 hr 01/09/18 01/10/18 01/10/18 12:40 06:00 06:00 WBC 6.6 RBC 3.61 Hgb 10.2 L Hct 31.4 L MCV 87.0 MCH 28.3 MCHC 32.5 RDW 14.7 H Plt Count 265 MPV 10.0 Gran % 56.9 Lymph % (Auto) 21.[address] [place] % (Auto) 16.7 H Eos % (Auto) 4.4 Baso % (Auto) 0.5 Gran # 3.76 Lymph # (Auto) 1.4 [place] # (Auto) 1.1 H Eos # (Auto) 0.3 Baso # (Auto) 0.03 Sodium 132 Potassium 3.7 Chloride 102 Carbon Dioxide 24 Anion Gap 10 BUN 12 Creatinine 0.5 L Est GFR ( Amer) > 60 Est GFR (Non-Af Amer) > 60 Random Glucose 94 Calcium 8.6 Phosphorus 3.7 Magnesium 1.7 Total Bilirubin 0.3 AST 28 ALT 43 Alkaline Phosphatase 105 Total Protein 5.5 L Albumin 2.8 L Globulin 2.7 Albumin/Globulin Ratio 1.0 L Triglycerides 35 Cholesterol 79 L LDL Cholesterol Direct 42 HDL Cholesterol 42 TSH 3rd Generation Blood Type O POSITIVE Antibody Screen Negative BBK History Checked Patient has bt 01/10/18 06:00 WBC RBC Hgb Hct MCV MCH MCHC RDW Plt Count MPV Gran % Lymph % (Auto) [place] % (Auto) Eos % (Auto) Baso % (Auto) Gran # Lymph # (Auto) [place] # (Auto) Eos # (Auto) Baso # (Auto) Sodium Potassium Chloride Carbon Dioxide Anion Gap BUN Creatinine Est GFR ( Amer) Est GFR (Non-Af Amer) Random Glucose Calcium Phosphorus Magnesium Total Bilirubin AST ALT Alkaline Phosphatase Total Protein Albumin Globulin Albumin/Globulin Ratio Triglycerides Cholesterol LDL Cholesterol Direct HDL Cholesterol TSH 3rd Generation 0.86 Blood Type Antibody Screen BBK History Checked Assessment & Plan (1) Hip fracture, intertrochanteric Assessment and Plan: X-rays reviewed with Dr. Johnston, showing a nondisplaced left intertrochanteric hip fracture. At this time it was discussed with the patient and her daughter for recommendation of ORIF of left hip fx with IM nail. Daughter is unsure if she wants her mother to proceed with the surgery. Dr. Johnston spoke with the daughter explaining the risks, benefits and alternatives in detail including the risks and outcomes if she wishes to not proceed with the surgery which include difficultly with ambulation due to pain, non weight bearing for some time, bed sores, blood clots and pneumonia due to being non ambulatory. Daughter states her understanding and will call once she has made her decision. At this time we keep patient NPO until we hear from the daughter with the final decision. Patient is T&C Will plan for OR later today if family wishes to proceed. Status: Acute
[2018-01-10] MEDS ORDERED: Bupivacaine 0.5% 50 ML IJ ONE (16:40)
[2018-01-10] MEDS ORDERED: Propofol 10 mg/ml Inj (20 ML) ONE ×2 (16:42→19:01)
[2018-01-10] MEDS ORDERED: Midazolam 2 MG/2 ML VIAL ONE (16:42)
[2018-01-10] MEDS ORDERED: Rocuronium 10 mg/ml (5 ml) ONE (16:44)
[2018-01-10] MEDS ORDERED: ePHEDrine 50 mg/ml Inj ONE (17:10)
[2018-01-10] MEDS ORDERED: Neostigmine Methylsulfate 3mg/3ml Syringe IV ONE (18:00)
[2018-01-10] MEDS ORDERED: Glycopyrrolate 0.2 mg/ml (2ml vial) ONE (18:04)
[2018-01-10] MEDS: Dextrose 5%/0.45% NS 1,000 ML IV SCH (20:11)
--- NOTE | 2018-01-10 23:28 | PN ---
DATE: 01/10/2018 SUBJECTIVE: Patient is a 77-year-old, seen and examined, seemed to be upset. Stated her right foot and left leg both hurt. Patient is scheduled for open reduction and internal fixation later on today, when I saw patient earlier this morning. PHYSICAL EXAMINATION VITAL SIGNS: Patient is afebrile, pulse 71, respirations 16, blood pressure 133/93. LUNGS: Bilateral fair airflow. No rhonchi or crackle. HEART: S1 and S2 audible. ABDOMEN: Soft, nontender. No rebound. No guarding. NEUROLOGICAL: Patient is awake, alert, oriented, communicative. LABORATORY EXAM: WBC 6.6, hemoglobin 10.2, hematocrit 31.4, platelets 265. Chemistry: Sodium 132, potassium 3.7, chloride 102, CO2 of 24, BUN 12, creatinine 0.5, blood sugar of 94. Total protein 5.5. Vitamin D 29.7. ASSESSMENT: 1. Status post fall. 2. Left intertrochanteric fracture. 3. History of embolic stroke. 4. History of rectal prolapse, status post transverse colostomy. PLAN: We will monitor patient's blood work in the a.m. She is on IV fluid. She is on Eliquis. Continue her on beta-mohan. We will follow up this patient in the a.m. Froy Flores MD
[2018-01-11] MEDS: oxyCODONE 10 mg Immediate Release Tab PO PRN ×2 (02:37→20:17)
--- NOTE | 2018-01-11 04:26 | OP ---
PROCEDURE DATE: 01/10/2018 PREOPERATIVE DIAGNOSIS: Left hip intertrochanteric fracture. POSTOPERATIVE DIAGNOSIS: Left hip intertrochanteric fracture. PROCEDURE: Open reduction and internal fixation of left hip fracture with intramedullary nail. SURGEON: MD Dr. Preston Cartwright was assisted by Nica Preciado, the physician portfolio assistant. Ms. Preciado was scrubbed and present throughout the entire case and assisted in patient positioning, manipulation of the extremity, and wound closure. ANESTHESIA: General. COMPLICATIONS: None. ESTIMATED BLOOD LOSS: 35 mL. IMPLANT: Biomet trochanteric entry 70 cm nail. INDICATION FOR PROCEDURE: This is a 77-year-old female who presented status post fall with left hip pain and inability to ambulate. Clinical and radiographic examination was consistent with left hip intertrochanteric fracture. Recommendations were for open reduction and internal fixation of the fracture once the patient was medically optimized. The risks, benefits, and alternatives of the procedure were discussed with the patient and the patient's daughter, and informed consent was obtained from the patient's daughter. OPERATIVE PROCEDURE: After surgical site was signed and verified in the perioperative holding area, the patient was taken to the operating room and placed supine in the fracture table. After the administration of general anesthesia, the patient received 600 mg of clindamycin IV. The patient's left lower extremity was positioned in the traction boot. The right lower extremity was gently flexed and away from the operative field. Care was taken to make sure all bony prominences and nerves were well padded and protected, and the C-arm intensifier was brought in, and the fracture was evaluated both in AP and lateral planes. The provisional close reduction was performed, and the left lower extremity was prepped and draped in the usual sterile fashion. Bony landmarks were identified about the left hip, and approximately 3 cm incision was made proximal to the tip of the greater trochanter. Soft tissue was dissected bluntly down to the tip of the trochanter, and the guide pin for entry hole for the nail was placed on the tip of the trochanter. Position of the guide pin was confirmed using the C-arm in both the AP and lateral planes. Satisfied, the guide pin was then inserted into the medullary canal of the proximal femur. It was again confirmed using the C-arm. Next, a step drill was used to drill our entry hole. At this point, the guide pin was exchanged for a smooth-tip guidewire, and the position of the guidewire was confirmed using the image intensifier. The medullary canal of the femur was then reamed with a 12.5 reamer. At this point, the nail was then inserted over the guidewire and reassessed to the appropriate . The position of the nail was confirmed using the image intensifier as well as reduction. Satisfied, the guidewire was removed, and through the outrigger jig and through a small incision along the lateral aspect of the proximal thigh. The guide pin for a hip screw was then inserted on the cortex of the lateral proximal femur. The guide pin was then inserted roughly in the center-center position of the femoral head. This was confirmed using the C-arm. Satisfied, the length of our screw was measured and whole further hip screw was then drilled to the appropriate depth. The screw was then inserted over the guide pin, and once this was done, position of the screw as well as reduction was confirmed using the image intensifier. At this point, the head screw was locked to the nail by screwing down on the set screw on the proximal aspect of the nail. Once this was done, the nail was then locked statically through a small incision in the mid portion of the thigh. The outrigger jig was then removed, and our final x-rays were taken confirming good reduction and good position of the hardware. At this point, all our incisions were irrigated with antibiotic saline solution and closed in a layered fashion. Sterile dressing was applied. The patient was transferred to the stretcher, awake, and taken to the recovery room in stable condition. Cameron Johnston MD
[2018-01-11] MEDS: Clindamycin 600mg/50ml D5W 600 MG/50 ML VIAL IVPB SCH ×2 (05:26→10:02)
--- NOTE | 2018-01-11 06:35 | CP.PCM.PN ---
Subjective - Date & Time of Evaluation Date of Evaluation: 01/11/18 Time of Evaluation: 06:20 - Subjective Subjective: Lying in bed, awake, alert, no distress, post left hip ORIF Reason for consultation and follow up: Cardiac evaluation and pre-op risk stratification for hip surgery, history of hypertension, COPD,rectal prolapse post colostomy, GERD, osteoarthritis. Seen and examined by me and Dr. Padron Objective - Vital Signs/Intake and Output Vital Signs (last 24 hours): Temp Pulse Resp BP Pulse Ox 98 F 72 20 127/65 96 01/10/18 23:11 01/10/18 23:11 01/10/18 23:11 01/10/18 23:11 01/10/18 23:11 Intake and Output: 01/10/18 01/11/18 18:59 06:59 Intake Total 75 120 Output Total 1000 Balance 75 -880 - Medications Medications: Current Medications Acetaminophen (Tylenol 325mg Tab) 650 mg PO Q4H PRN PRN Reason: Pain, Mild (1-3) Amlodipine Besylate (Norvasc) 2.5 mg PO BID [facility] Last Admin: 01/10/18 18:18 Dose: Not Given Apixaban (Eliquis) 2.5 mg PO BID [facility]; Protocol Atorvastatin Calcium (Lipitor) 10 mg PO DIN [facility] Last Admin: 01/10/18 17:49 Dose: Not Given Clindamycin Phosphate (Cleocin) 600 mg in 50 mls @ 50 mls/hr IVPB Q8H [facility]; Protocol Stop: 01/11/18 10:59 Last Admin: 01/11/18 05:26 Dose: 50 mls/hr Dextrose/Sodium Chloride (Dextrose 5%/0.45% Ns 1000 Ml) 1,000 mls @ 75 mls/hr IV .[id number] [facility] Last Admin: 01/10/18 20:11 Dose: 75 mls/hr Metoprolol Tartrate (Lopressor) 12.5 mg PO BID [facility] Last Admin: 01/10/18 18:18 Dose: Not Given Morphine Sulfate (Morphine) 2 mg IVP Q4H PRN PRN Reason: Pain, severe (8-10) Last Admin: 01/10/18 08:42 Dose: 2 mg Oxycodone HCl (Oxycodone Immediate Release Tab) 10 mg PO Q6H PRN PRN Reason: Pain, moderate (4-7) Last Admin: 01/11/18 02:37 Dose: 10 mg Oxycodone/Acetaminophen (Percocet 5/325 Mg Tab) 1 tab PO Q4H PRN PRN Reason: Pain, moderate (4-7) Stop: 01/12/18 09:22 Polyethylene Glycol (Miralax) 17 gm PO DAILY [facility] Last Admin: 01/10/18 10:13 Dose: Not Given Sennosides (Senokot Tab) 8.6 mg PO DAILY [facility] Last Admin: 01/10/18 10:23 Dose: Not Given - Labs Labs: 01/10/18 06:00 01/10/18 06:00 PT 12.1 SECONDS (9.4-12.5) 01/09/18 03:30 INR 1.06 01/09/18 03:30 APTT 25.4 Seconds (25.1-36.5) 01/09/18 03:30 - Constitutional Appears: Non-toxic, No Acute Distress - Head Exam Head Exam: NORMAL INSPECTION, NORMOCEPHALIC - Eye Exam Eye Exam: Normal appearance Pupil Exam: NORMAL ACCOMODATION - ENT Exam ENT Exam: Mucous Membranes Moist, Normal Exam - Respiratory Exam Respiratory Exam: Clear to Ausculation Bilateral, NORMAL BREATHING PATTERN - Cardiovascular Exam Cardiovascular Exam: +S1, +S2 Additional comments: No JVD loop recorder - GI/Abdominal Exam GI & Abdominal Exam: Soft, Normal Bowel Sounds Additional comments: colostomy - Exam Additional comments: grimaldo catheter - Extremities Exam Additional comments: left hip dressing - Neurological Exam Neurological Exam: Alert, Awake - Psychiatric Exam Psychiatric exam: Normal Affect, Normal Mood - Skin Skin Exam: Dry, Normal Color, Warm Assessment and Plan - Assessment and Plan (Free Text) Assessment: A 77 year old female who came in to the ER due to fall and sustained a left intertrochanteric fracture of the left hip. History of hypertension, COPD,rectal prolapse post colostomy, GERD, osteoarthritis., left shoulder basal cell carcinoma with radiation. Pre-op cardiac evaluation for possible left hip ORIF. Recent Echo 10/06/17 showed LVEF 57%, calcified aortic valve, trace to mild aortic regurgitation, mild mitral regurgitation, mild to moderate tricuspid regurgitation. Had loop recorder 09/2012 due to past MRI showed subacute multiple areas of infarct in the occipital lobe. Loop recorder was recommended by Neurology to see any occult arrythmia or cyptogenic stroke.Chest xray normal/unremarkable,EKG-normal sinus rhythm, Troponin normal. No absolute contraindication for surgery. Patient denies chest pain or shortness of breath. No evidence of ischemia or heart failure. Cleared for Surgery with moderate risk. Status post ORIF with intramedullary nailing of left hip POD#1 Plan: Status post ORIF with intramedullary nailing of left hip POD#1 No distress, denies pain Heart rate controlled Blood pressure controlled Cardiac status stable On Norvasc 2.5 mg BID,Lipitor 10 mg daily, Lopressor 12.5 mg BID Continue current treatment Continue current medications Chart reviewed Will follow up Plan and treatment discussed with Dr. Padron
[2018-01-11 07:19] LABS: BASO # 0.03 K/mm3 (0.0-2.0); BASO % 0.4 % (0.0-3.0); EOS # 0.1 (0.0-0.7); EOS % 1.6 % (1.5-5.0); GRAN # 4.86 (1.4-6.5); GRAN % 66.3 % (50.0-68.0); HEMOGLOBIN 8.9 g/dL (12.0-16.0); LYMPH # 1.5 (1.2-3.4); LYMPH % 19.8 % (22.0-35.0); MEAN CELL VOLUME 86.7 fl (80.0-105.0); MEAN CORPUSCULAR HEMOGLOBIN 28.3 pg (25.0-35.0); MEAN CORPUSCULAR HGB CONC 32.6 g/dl (31.0-37.0); MEAN PLATELET VOLUME 9.9 fl (7.0-11.0); MONO # 0.9 (0.1-0.6); MONO % 11.9 % (1.0-6.0); RBC 3.15 10^6/uL (3.5-6.1); RED CELL DISTRIBUTION WIDTH 14.7 % (11.5-14.5); WHITE BLOOD COUNT 7.3 10^3/uL (4.5-11.0)
[2018-01-11 08:14] LABS: BLOOD UREA NITROGEN 7 mg/dL (7-21); CALCIUM 7.9 mg/dL (8.4-10.5); GFR NON-AFRICAN AMERICAN > 60
[2018-01-11 08:15] LABS: ALBUMIN 2.5 g/dL (3.0-4.8); ALT/SGPT 34 U/L (7-56); AST/SGOT 27 U/L (14-36)
--- NOTE | 2018-01-11 08:18 | PN ---
DATE: 01/10/2018 SEX OF THE PATIENT: Female. AGE: 77. REFERRING PHYSICIAN: ____. REASON FOR CONSULTATION: Cardiac evaluation, preop stratification for hip surgery, hypertension, COPD, rectal prolapse, status post colostomy, gastroesophageal reflux disease, osteoarthritis. The patient was seen yesterday and cleared for procedure for hip surgery ____ comorbidity. The patient's loop recorder did not show any arrhythmia. Last echo on 10/06/2017, ejection fraction 57%, [id number] tricuspid regurgitation, mild mitral regurgitation. Loop recorder in 09/2012 because of ME shows subacute multiple area of the infract and occipital lobe. No arrhythmia so far recorded. RECOMMENDATIONS: Continue Norvasc, continue Lopressor. We will follow with you and ____ moderate risk. This note is in addition to the note dictated by the nurse practitioner, Heydi Jones. Hemoglobin today is 10.2, hematocrit 31.4. BUN 12, creatinine 0.5, potassium 3.7. We will give one K-rider. Thank you Dr. Reyes for providing us the opportunity in taking care of the patient, Georgie Daily. Renu Padron MD
[2018-01-11] MEDS: Morphine 2 mg/ml ISec IVP PRN ×2 (09:11→16:19)
--- NOTE | 2018-01-11 09:36 | RAD ---
Date of service: 01/10/2018 PROCEDURE: Pelvis and left hip HISTORY: s/p ORIF left hip fx. patient in PACU COMPARISON: TECHNIQUE: Three views FINDINGS: There is a compression screw and tab in the left hip. There is anatomic alignment. There are no complicating factors. A catheter is seen in the bladder. IMPRESSION: Negative study
[2018-01-11] MEDS: POLYETHYLENE GLYCOL 3350 17 GM/Dose PACKET PO SCH (10:03)
--- NOTE | 2018-01-11 10:11 | RAD ---
Date of service: 01/10/2018 PROCEDURE: Fluoroscopy up to 1 hr HISTORY: O.R.I.F. LT. HIP FX. COMPARISON: TECHNIQUE: 112.8 sec of fluoro time. Cumulative dose 9.36 mGy. 6 images were submitted FINDINGS: The study shows placement of a compression screw and tab in the left hip. IMPRESSION: As above
[2018-01-11] MEDS ORDERED: Potassium Chloride 20 mEq ER Tab PO STA (10:25)
[2018-01-11] MEDS ORDERED: Magnesium Sulfate 1 gm in D5W 1 GM/100 ML BAG IVPB ONE (10:53)
--- NOTE | 2018-01-11 13:55 | PN ---
DATE: 01/11/2018 SEX OF THE PATIENT: Female. AGE OF THE PATIENT: 77. TYPE OF DICTATION: Progress note. REASON FOR CONSULTATION: Cardiac evaluation, preop evaluation, postop followup, status post hip fracture patient. The patient denies any chest pain, shortness of breath or any palpitation. Complained of pain at the operative site. Recent echo, preserved left ventricular function, ejection fraction 57%, history of mild mitral regurgitation, [id number] tricuspid regurgitation, a loop recorder because of cryptogenic stroke. RECOMMENDATION: Continue Lopressor 12.5 mg twice daily., continue Norvasc, increase nutritional support. We will follow with you. Postop, patient was placed on Eliquis. For DVT prophylaxis, we will continue to monitor H and H. Continue rehab. I will follow with you. Thank you Dr. Flores for providing the opportunity in taking care of the patient Georgie Daily. Potassium 3.8, we will put supplement, albumin 2.5 we are looking for nutritional support. Moderate protein calorie malnutrition which was not present on admission. Thank you for transcribing this note is addition to dictated on nurse practitioner Heydi Jones. We will put supplement for Ensure as well as we will put a potassium supplement. We will put Glucerna supplement because sugar was elevated and with chocolate flavor 4 times a day. Thank you Dr. Flores for opportunity in taking care of the patient, Abimbola Jacques. Renu Padron MD
--- NOTE | 2018-01-11 18:53 | CP.PCM.PN ---
Subjective - Date & Time of Evaluation Date of Evaluation: 01/11/18 Time of Evaluation: 18:49 - Subjective Subjective: Patient seen and examined. Daughter is with her at beside. Patient denies any significant pain. States she was sitting in the chair and ambualted with a walker with therapy today Afebrile WBC 7.3 Hgb 8.9 L hip: dressings clean dry and intact. +AROM foot and ankle. Sensation intact to light touch. Calf and thigh soft and nontender. NVI distally POD#1 s/p ORIF left hip fx Dressing changes tomorrow Cont PT Cont DVT prophylaxis Monitor h&h Discharge planning to [facility] Discussed above with Dr. Johnston, agrees with above. Objective - Vital Signs/Intake and Output Vital Signs (last 24 hours): Temp Pulse Resp BP Pulse Ox 98.4 F 91 H 20 142/88 97 01/11/18 14:00 01/11/18 17:57 01/11/18 14:00 01/11/18 17:57 01/11/18 14:00 Intake and Output: 01/11/18 01/11/18 06:59 18:59 Intake Total 120 Output Total 1000 Balance -880 - Medications Medications: Current Medications Acetaminophen (Tylenol 325mg Tab) 650 mg PO Q4H PRN PRN Reason: Pain, Mild (1-3) Amlodipine Besylate (Norvasc) 2.5 mg PO BID [facility] Last Admin: 01/11/18 17:57 Dose: 2.5 mg Apixaban (Eliquis) 2.5 mg PO BID [facility]; Protocol Last Admin: 01/11/18 18:48 Dose: Not Given Atorvastatin Calcium (Lipitor) 10 mg PO DIN [facility] Last Admin: 01/11/18 16:18 Dose: 10 mg Dextrose/Sodium Chloride (Dextrose 5%/0.45% Ns 1000 Ml) 1,000 mls @ 75 mls/hr IV .[id number] [facility] Last Admin: 01/10/18 20:11 Dose: 75 mls/hr Metoprolol Tartrate (Lopressor) 12.5 mg PO BID [facility] Last Admin: 01/11/18 17:57 Dose: 12.5 mg Morphine Sulfate (Morphine) 2 mg IVP Q4H PRN PRN Reason: Pain, severe (8-10) Last Admin: 01/11/18 16:19 Dose: 2 mg Oxycodone HCl (Oxycodone Immediate Release Tab) 10 mg PO Q6H PRN PRN Reason: Pain, moderate (4-7) Last Admin: 01/11/18 02:37 Dose: 10 mg Oxycodone/Acetaminophen (Percocet 5/325 Mg Tab) 1 tab PO Q4H PRN PRN Reason: Pain, moderate (4-7) Stop: 01/12/18 09:22 Polyethylene Glycol (Miralax) 17 gm PO DAILY [facility] Last Admin: 01/11/18 10:03 Dose: 17 gm Sennosides (Senokot Tab) 8.6 mg PO DAILY [facility] Last Admin: 01/11/18 10:04 Dose: 8.6 mg - Labs Labs: 01/11/18 06:50 01/11/18 06:50 PT 12.1 SECONDS (9.4-12.5) 01/09/18 03:30 INR 1.06 01/09/18 03:30 APTT 25.4 Seconds (25.1-36.5) 01/09/18 03:30 Assessment and Plan (1) Hip fracture, intertrochanteric Status: Acute
[2018-01-11] MEDS: Oxycodone/Acetaminophen 5/325 mg Tab PO PRN (19:15)
[2018-01-12] MEDS: Dextrose 5%/0.45% NS 1,000 ML IV SCH (00:23)
--- NOTE | 2018-01-12 01:17 | PN ---
DATE: 01/11/2018 SUBJECTIVE: The patient is a 77-year-old, seen and examined, sitting in chair, seems to be somewhat confused. I told her that we have to sent her to [facility], but she states she does not want to go to [facility], she wants to go home. PHYSICAL EXAMINATION VITAL SIGNS: She is afebrile. Pulse 91, respirations 20, blood pressure 142/88. LUNGS: Bilateral fair airflow. No rhonchi or crackle. HEART: S1 and S2 audible. ABDOMEN: Soft. Colostomy is functional and has greenish brown stool. EXTREMITIES: Bilateral legs, no edema. LABORATORY DATA: WBC 7.3, hemoglobin 8.9, hematocrit 27.3, platelets 225. Chemistry: Sodium 130, potassium 3.3, chloride 97, CO2 of 29, BUN 7, creatinine 0.5, blood sugar 128. ASSESSMENT: 1. Status post fall. 2. Left hip fracture. 3. History of embolic stroke. 4. History of rectal prolapse, status post transverse colostomy. 5. Status post left intertrochanteric open reduction and internal fixation. 6. Vitamin D deficiency. PLAN: The patient is currently on IV fluids. Once her oral intake improves, we may discontinue IV fluid tomorrow. Keep her on laxative and analgesic as needed. We will follow up the patient in a.m. If she remains stable, discharge plan to go to [facility]. Froy Flores MD
[2018-01-12 07:05] LABS: BASO # 0.03 K/mm3 (0.0-2.0); BASO % 0.4 % (0.0-3.0); EOS # 0.3 (0.0-0.7); EOS % 3.5 % (1.5-5.0); GRAN # 5.04 (1.4-6.5); GRAN % 65.7 % (50.0-68.0); HEMOGLOBIN 9.5 g/dL (12.0-16.0); LYMPH # 1.3 (1.2-3.4); LYMPH % 16.9 % (22.0-35.0); MEAN CELL VOLUME 86.6 fl (80.0-105.0); MEAN CORPUSCULAR HEMOGLOBIN 28.2 pg (25.0-35.0); MEAN CORPUSCULAR HGB CONC 32.5 g/dl (31.0-37.0); MEAN PLATELET VOLUME 10.1 fl (7.0-11.0); MONO % 13.5 % (1.0-6.0); RBC 3.37 10^6/uL (3.5-6.1); RED CELL DISTRIBUTION WIDTH 14.4 % (11.5-14.5); WHITE BLOOD COUNT 7.7 10^3/uL (4.5-11.0)
[2018-01-12 07:14] LABS: ALBUMIN 2.6 g/dL (3.0-4.8); ALT/SGPT 47 U/L (7-56); AST/SGOT 34 U/L (14-36); BLOOD UREA NITROGEN 7 mg/dL (7-21); CALCIUM 8.5 mg/dL (8.4-10.5); GFR NON-AFRICAN AMERICAN > 60
--- NOTE | 2018-01-12 07:40 | CP.PCM.PN ---
Subjective - Date & Time of Evaluation Date of Evaluation: 01/12/18 Time of Evaluation: 06:45 - Subjective Subjective: Lying in bed, awake, alert, no distress, post left hip ORIF POD#2 Reason for consultation and follow up: Cardiac evaluation and pre-op risk stratification for hip surgery, history of hypertension, COPD,rectal prolapse post colostomy, GERD, osteoarthritis. Seen and examined by me and Dr. Padron Objective - Vital Signs/Intake and Output Vital Signs (last 24 hours): Temp Pulse Resp BP Pulse Ox 98.2 F 83 18 138/77 98 01/11/18 22:14 01/11/18 22:14 01/11/18 22:14 01/11/18 22:14 01/11/18 22:14 Intake and Output: 01/12/18 01/12/18 06:59 18:59 Intake Total 1380 Output Total 500 Balance 880 - Medications Medications: Current Medications Acetaminophen (Tylenol 325mg Tab) 650 mg PO Q4H PRN PRN Reason: Pain, Mild (1-3) Amlodipine Besylate (Norvasc) 2.5 mg PO BID [facility] Last Admin: 01/11/18 17:57 Dose: 2.5 mg Apixaban (Eliquis) 2.5 mg PO BID [facility]; Protocol Last Admin: 01/11/18 18:48 Dose: Not Given Atorvastatin Calcium (Lipitor) 10 mg PO DIN [facility] Last Admin: 01/11/18 16:18 Dose: 10 mg Calcium Carbonate (Caltrate) 600 mg PO DAILY [facility] Cholecalciferol (Vitamin D) 2,000 intlu PO DAILY [facility] Dextrose/Sodium Chloride (Dextrose 5%/0.45% Ns 1000 Ml) 1,000 mls @ 75 mls/hr IV .[id number] [facility] Last Admin: 01/12/18 00:23 Dose: 75 mls/hr Metoprolol Tartrate (Lopressor) 12.5 mg PO BID [facility] Last Admin: 01/11/18 17:57 Dose: 12.5 mg Morphine Sulfate (Morphine) 2 mg IVP Q4H PRN PRN Reason: Pain, severe (8-10) Last Admin: 01/11/18 16:19 Dose: 2 mg Oxycodone HCl (Oxycodone Immediate Release Tab) 10 mg PO Q6H PRN PRN Reason: Pain, moderate (4-7) Last Admin: 01/11/18 20:17 Dose: 10 mg Oxycodone/Acetaminophen (Percocet 5/325 Mg Tab) 1 tab PO Q4H PRN PRN Reason: Pain, moderate (4-7) Stop: 01/12/18 09:22 Last Admin: 01/11/18 19:15 Dose: 1 tab Polyethylene Glycol (Miralax) 17 gm PO DAILY [facility] Last Admin: 01/11/18 10:03 Dose: 17 gm Sennosides (Senokot Tab) 8.6 mg PO DAILY [facility] Last Admin: 01/11/18 10:04 Dose: 8.6 mg - Labs Labs: 01/12/18 06:35 01/12/18 06:35 PT 12.1 SECONDS (9.4-12.5) 01/09/18 03:30 INR 1.06 01/09/18 03:30 APTT 25.4 Seconds (25.1-36.5) 01/09/18 03:30 - Constitutional Appears: Non-toxic, No Acute Distress - Head Exam Head Exam: NORMAL INSPECTION, NORMOCEPHALIC - Eye Exam Eye Exam: Normal appearance Pupil Exam: NORMAL ACCOMODATION - ENT Exam ENT Exam: Mucous Membranes Moist, Normal Exam - Neck Exam Neck Exam: Normal Inspection - Respiratory Exam Respiratory Exam: Clear to Ausculation Bilateral, NORMAL BREATHING PATTERN - Cardiovascular Exam Cardiovascular Exam: +S1, +S2 Additional comments: loop recorder - GI/Abdominal Exam GI & Abdominal Exam: Soft, Normal Bowel Sounds Additional comments: colostomy - Extremities Exam Additional comments: left hip dressing - Neurological Exam Neurological Exam: Alert, Awake - Psychiatric Exam Psychiatric exam: Normal Affect, Normal Mood - Skin Skin Exam: Dry, Normal Color, Warm Assessment and Plan - Assessment and Plan (Free Text) Assessment: A 77 year old female who came in to the ER due to fall and sustained a left intertrochanteric fracture of the left hip. History of hypertension, COPD,rectal prolapse post colostomy, GERD, osteoarthritis., left shoulder basal cell carcinoma with radiation. Pre-op cardiac evaluation for possible left hip ORIF. Recent Echo 10/06/17 showed LVEF 57%, calcified aortic valve, trace to mild aortic regurgitation, mild mitral regurgitation, mild to moderate tricuspid re gurgitation. Had loop recorder 09/2012 due to past MRI showed subacute multiple areas of infarct in the occipital lobe. Loop recorder was recommended by Neurology to see any occult arrythmia or cyptogenic stroke.Chest xray normal/unremarkable,EKG-normal sinus rhythm, Troponin normal. No absolute co ntraindication for surgery. Patient denies chest pain or shortness of breath. No evidence of ischemia or heart failure. Status post ORIF with intramedullary nailing of left hip POD#2, Stable vital signs Plan: Cardiac status stable Status post ORIF with intramedullary nailing of left hip POD#2 No distress, denies pain Heart rate controlled Blood pressure controlled On Norvasc 2.5 mg BID,Lipitor 10 mg daily, Lopressor 12.5 mg BID Continue current treatment Continue current medications Chart reviewed Possible discharge to [facility] for physical therapy Will follow up Plan and treatment discussed with Dr. Padron
[2018-01-12] MEDS ORDERED: Sodium Chloride 0.9% 1,000 ML IV SCH (08:15)
[2018-01-12] MEDS: Oxycodone/Acetaminophen 5/325 mg Tab PO PRN (08:41)
[2018-01-12] MEDS ORDERED: Cholecalciferol 1,000 INTLU TAB PO SCH (10:00)
[2018-01-12] MEDS: POLYETHYLENE GLYCOL 3350 17 GM/Dose PACKET PO SCH (10:35)
--- NOTE | 2018-01-12 10:44 | PN ---
DATE: 01/12/2018 SUBJECTIVE: The patient is status post fall, status post OR internal fixation postop day 2. LABORATORY DATA: Hemoglobin 9.5, hematocrit 29.2, platelet count 270. BUN today is 7, creatinine 0.5, potassium 4.3, sodium 129. Patient is getting half-normal saline. Sodium is going down. RECOMMENDATION: We changed fluid to normal saline at 50 mL an hour, discontinue half normal. This note as mentioned is in addition to our nurse practitioner. IMPRESSION: This is a 77-year-old lady who fell down sustaining hip fracture status post intertrochanteric fracture status post OR internal fixation, history of hypertension, history of chronic obstructive pulmonary disease, history of prolapse, history of colostomy, osteoarthritis, history of cerebrovascular accident, possible cryptogenic stroke, loop recorder so far no significant arrhythmia noted. RECOMMENDATIONS: Discontinue half normal D5 to normal saline 50 mL an hour. Continue Norvasc, continue Lopressor. CVA is status is stable, possible discharge. Continue normal saline until the oral is adequate. We will follow with you. I will repeat the lab in the morning. We will repeat CBC and SMA-7 in the morning. Thank you Dr. Flores for providing us the opportunity in taking care of the patient, Abimbola Jacques. Renu Padron MD
--- NOTE | 2018-01-12 13:28 | DS ---
HISTORY OF PRESENT ILLNESS: The patient is a 77-year-old, who fell and had left intertrochanteric fracture, status post open reduction and internal fixation, seems somewhat confused, but much better than yesterday. PHYSICAL EXAMINATION: VITAL SIGNS: She is afebrile, pulse 82, respirations 16, blood pressure 178/125. LUNGS: Bilateral fair airflow. No rhonchi or crackle. HEART: S1 and S2 audible. ABDOMEN: Soft and nontender. No rebound. No guarding. NEUROLOGICAL: The patient is awake, alert, oriented and communicative. Able to visual both feet and toes. Both feet are warm. ASSESSMENT: 1. Status post left intertrochanteric fracture, open reduction and internal fixation. 2. Status post transverse colostomy. 3. History of embolic stroke. 4. Hyperlipidemia. PLAN: The patient is going to be discharged today. She will be transferred to [facility] for further rehab. I will follow up there. Froy Flores MD
[2018-01-12 15:10] VITALS: RESP 18; TEMP 97.9; O2SAT 98
[2018-01-12] MEDS: oxyCODONE 10 mg Immediate Release Tab PO PRN (17:16)
[2018-01-12 17:53] VITALS: BP 112/62; PULSE 81
--- NOTE | 2018-01-12 20:22 | CP.PCM.PN ---
Subjective - Date & Time of Evaluation Date of Evaluation: 01/12/18 Time of Evaluation: 20:20 - Subjective Subjective: Patient seen and examined. Denies any significant pain L hip: dressings changed. Incision sites clean dry and intact. No erythema. New dressings applied. Thigh and calf soft and nontender. NVI distally POD# 2 s/p L hip fx with Im nail Discharge today to [facility] PT with [facility] patient to follow up in [address] Johnston's office Objective - Vital Signs/Intake and Output Vital Signs (last 24 hours): Temp Pulse Resp BP Pulse Ox 97.9 F 81 18 112/62 98 01/12/18 14:00 01/12/18 17:50 01/12/18 14:00 01/12/18 17:50 01/12/18 14:00 - Medications Medications: Current Medications Acetaminophen (Tylenol 325mg Tab) 650 mg PO Q4H PRN PRN Reason: Pain, Mild (1-3) Amlodipine Besylate (Norvasc) 2.5 mg PO BID [facility] Last Admin: 01/12/18 10:34 Dose: 2.5 mg Apixaban (Eliquis) 2.5 mg PO BID [facility]; Protocol Last Admin: 01/12/18 10:33 Dose: 2.5 mg Atorvastatin Calcium (Lipitor) 10 mg PO DIN [facility] Last Admin: 01/12/18 17:50 Dose: 10 mg Calcium Carbonate (Caltrate) 600 mg PO DAILY [facility] Last Admin: 01/12/18 10:34 Dose: 600 mg Cholecalciferol (Vitamin D) 2,000 intlu PO DAILY [facility] Last Admin: 01/12/18 10:33 Dose: 2,000 intlu Sodium Chloride (Sodium Chloride 0.9%) 1,000 mls @ 50 mls/hr IV .Q20H [facility] Stop: 01/13/18 23:59 Last Admin: 01/12/18 10:33 Dose: 50 mls/hr Metoprolol Tartrate (Lopressor) 12.5 mg PO BID [facility] Last Admin: 01/12/18 17:50 Dose: 12.5 mg Morphine Sulfate (Morphine) 2 mg IVP Q4H PRN PRN Reason: Pain, severe (8-10) Last Admin: 01/11/18 16:19 Dose: 2 mg Oxycodone HCl (Oxycodone Immediate Release Tab) 10 mg PO Q6H PRN PRN Reason: Pain, moderate (4-7) Last Admin: 01/12/18 17:16 Dose: 10 mg Polyethylene Glycol (Miralax) 17 gm PO DAILY [facility] Last Admin: 01/12/18 10:35 Dose: 17 gm Sennosides (Senokot Tab) 8.6 mg PO DAILY [facility] Last Admin: 01/12/18 10:35 Dose: 8.6 mg - Labs Labs: 01/12/18 06:35 01/12/18 06:35 PT 12.1 SECONDS (9.4-12.5) 01/09/18 03:30 INR 1.06 01/09/18 03:30 APTT 25.4 Seconds (25.1-36.5) 01/09/18 03:30 Assessment and Plan (1) Hip fracture, intertrochanteric Status: Acute
== END 2018-01-12 20:48 | DRG 481 ==
LOC: ED 01:40 → ERH 04:27 → 5RSO 05:56
PROVIDERS: ADMIT Internal Medicine; ATTEND Internal Medicine
PROC: 0QS706Z Reposition Left Upper Femur with Intramedullary Internal Fixation Device, Open Approach (ICD-10-PCS; principal; 2018-01-10 16:45)
DX: S72.145A Nondisplaced intertrochanteric fracture of left femur, initial encounter for closed fracture (principal); K50.90 Crohn's disease, unspecified, without complications; E44.0 Moderate protein-calorie malnutrition; Z68.1 Body mass index [BMI] 19.9 or less, adult; J44.9 Chronic obstructive pulmonary disease, unspecified; I08.3 Combined rheumatic disorders of mitral, aortic and tricuspid valves; I10 Essential (primary) hypertension; E55.9 Vitamin D deficiency, unspecified; E78.5 Hyperlipidemia, unspecified; R54 Age-related physical debility; K21.9 Gastro-esophageal reflux disease without esophagitis; M19.90 Unspecified osteoarthritis, unspecified site; W01.0XXA Fall on same level from slipping, tripping and stumbling without subsequent striking against object, initial encounter; K62.3 Rectal prolapse; Z93.3 Colostomy status; Z87.891 Personal history of nicotine dependence; I25.2 Old myocardial infarction; Z85.828 Personal history of other malignant neoplasm of skin; Z86.73 Personal history of transient ischemic attack (TIA), and cerebral infarction without residual deficits

== ENCOUNTER 2018-04-09 00:08 | Inpatient (IN) | payer MEDICARE, BC | END 2018-04-15 15:49 | disposition home or self-care (01) | LOC: ED 00:08 → ERH 05:33 → 3RNO 06:37 → ERH 06:38 → 3RNO 07:20 | PROC: 0DBM0ZZ Excision of Descending Colon, Open Approach (ICD-10-PCS; principal; 2018-04-11 10:30) | PROC: 0WQF0ZZ Repair Abdominal Wall, Open Approach (ICD-10-PCS; 2018-04-11 10:30) | DX: K94.09 Other complications of colostomy (principal); K50.90 Crohn's disease, unspecified, without complications; N39.0 Urinary tract infection, site not specified; E87.1 Hypo-osmolality and hyponatremia; T37.0X5A Adverse effect of sulfonamides, initial encounter; B96.1 Klebsiella pneumoniae [K. pneumoniae] as the cause of diseases classified elsewhere; K43.5 Parastomal hernia without obstruction or gangrene; E87.6 Hypokalemia; J44.9 Chronic obstructive pulmonary disease, unspecified; I10 Essential (primary) hypertension; M15.9 Polyosteoarthritis, unspecified; F41.9 Anxiety disorder, unspecified; D64.9 Anemia, unspecified; E78.5 Hyperlipidemia, unspecified; K29.70 Gastritis, unspecified, without bleeding; Z96.642 Presence of left artificial hip joint; Z86.73 Personal history of transient ischemic attack (TIA), and cerebral infarction without residual deficits; Z87.11 Personal history of peptic ulcer disease ==